=== PATIENT | male | born 1950 | race Caucasian/White ===

== ENCOUNTER 2016-09-20 08:07 | Outpatient (CLI) | payer MEDICARE, OTHER | END 2016-09-20 08:08 | disposition home or self-care (01) | DX: Z13.6 Encounter for screening for cardiovascular disorders (principal); F17.210 Nicotine dependence, cigarettes, uncomplicated ==

== ENCOUNTER 2016-11-27 17:20 | Outpatient (CLI) | payer MEDICARE, OTHER ==
[2016-11-27] MEDS ORDERED: IOPAMIDOL-300 100 ML VIAL IVP ONE (18:41)
[2016-11-27] MEDS ORDERED: IOPAMIDOL-300 50 ML VIAL PO ONE (18:41)
--- NOTE | 2016-11-27 19:06 | CT Preliminary Report ---
Exam: CT Abdomen/Pelvis W/ IMPRESSION: 1. No acute CT abnormality to explain the clinical symptoms. 2. Colonic diverticulosis without acute diverticulitis. [facility] SITE ID: [id number]
--- NOTE | 2016-11-27 19:07 | CT Report ---
EXAM: CT ABDOMEN AND PELVIS EXAM DATE: 11/27/2016 06:40 PM. CLINICAL HISTORY: MASS DECREASE ELEVATION OF PANCREATIC ENZYMES. COMPARISONS: CT abdomen 12/24/2006. TECHNIQUE: Routine helical CT imaging was performed through the abdomen and pelvis. IV contrast: Isov ue 300 100mL. Enteric contrast: Yes. Reconstructions: Coronal and sagittal. In accordance with CT protocol optimization, one or more of the following dose reduction techniques w ere utilized for this exam: automated exposure control, adjustment of mA and/or KV based on patient s ize, or use of iterative reconstructive technique. FINDINGS: Lung Bases: Unremarkable. Liver: There is a liver calcification along the capsule of the liver near the dome. No new liver lesi on or biliary dilatation. Liver size is normal. Gallbladder/Bile Ducts: Unremarkable. Spleen: Normal. Pancreas: Normal. Adrenal Glands: Normal. Kidneys: Normal. No masses or hydronephrosis. Peritoneal Cavity/Bowel: Normal. No free fluid, free air or adenopathy. No masses or acute inflammato ry process. There are scattered diverticula within the colon. The colon is well-opacified with contra st. No abnormal fluid or gas collection. Pelvic Organs: The urinary bladder is empty. Vasculature: Mild atherosclerosis without aneurysm. Bones: There is an old-appearing wedging compression fracture of T12. There is endplate degenerative disease with sclerosis of the inferior L4 vertebral body. Other: Previous right hip arthroplasty noted. IMPRESSION: 1. No acute CT abnormality to explain the clinical symptoms. 2. Colonic diverticulosis without acute diverticulitis. [facility] Referring Provider Line: [phone] SITE ID: [id number]
== END 2016-11-27 17:21 | disposition home or self-care (01) ==
LOC: DI 17:20
PROVIDERS: ATTEND Specialist
DX: R19.00 Intra-abdominal and pelvic swelling, mass and lump, unspecified site (principal); K57.30 Diverticulosis of large intestine without perforation or abscess without bleeding
CPT/HCPCS: 74177; Q9967

== ENCOUNTER 2018-02-28 07:27 | Emergency (ER) | payer MEDICARE, OTHER ==
[2018-02-28 07:38] VITALS: BP 158/87
--- NOTE | 2018-02-28 07:45 | ED Physician Documentation ---
PD HPI LOWER EXT INJURY - Stated complaint Stated Complaint: L KNEE PX - Chief complaint Chief Complaint: General - History obtained from History obtained from: Patient, Family () - History of Present Illness PD HPI LOW EXT INJURY LOCATION: Left, Knee Type of injury: Other (No specific trauma.) Timing - onset: Today Worsened by: Other (Weight bearing.) Associated symptoms: No: Weakness, Numbness, Swelling Similar symptoms before: Has not had sx before - Additional information Additional information: The patient is a 68-year-old male who presents with left knee pain that started when he got out of bed this morning. He denies any traumatic injury. The pain is associated with weightbearing. He denies fever, numbness or weakness. He denies history of pain in his left knee in the past. He does have history of degenerative joint disease, for which he is status post right total hip replacement and right total knee arthroplasty. His orthopedic surgeon has advised him that his left hip also needs to be replaced. He does not currently take any pain medication, having weaned off of MS Contin 2 years ago. Review of Systems Constitutional: denies: Fever Nose: denies: Congestion Respiratory: denies: Dyspnea Skin: denies: Rash Musculoskeletal: reports: Joint pain (Left knee). denies: Back pain, Joint swelling Neurologic: denies: Focal weakness, Numbness, Headache PD PAST MEDICAL HISTORY - Past Medical History Cardiovascular: None, Other Respiratory: Asthma, COPD, Other Endocrine/Autoimmune: None GI: GERD : Incontinence, Frequency HEENT: None Psych: None Musculoskeletal: Osteoporosis, Other Derm: Other - Past Surgical History Past Surgical History: Yes Ortho: Hip replacement, Knee replacement - Present Medications Home Medications: Ambulatory Orders Medication Instructions Recorded Confirmed Albuterol 2.5 inh INH QID PRN 05/11/13 02/28/18 Atorvastatin Calcium [Lipitor] 20 mg PO DAILY 05/11/13 02/28/18 Aspirin [Aspir 81] 81 mg PO DAILY 03/05/14 02/28/18 Donepezil HCl [Aricept] 10 mg PO QPM 03/05/14 02/28/18 Folic Acid 1 mg PO DAILY 03/05/14 02/28/18 Lisinopril 10 mg PO DAILY 03/05/14 02/28/18 Oxybutynin [Ditropan] 5 mg PO BID 03/05/14 02/28/18 - Allergies Allergies/Adverse Reactions: Allergies Allergy/AdvReac Type Severity Reaction Status Date / Time Penicillins Allergy Rash Verified 12/16/15 14:16 sesame seeds Allergy Intermediate Respiratory Uncoded 12/16/15 14:16 nuts AdvReac Severe Emesis Uncoded 12/16/15 14:16 - Social History Does the pt smoke?: No Smoking Status: Former smoker Does the pt drink ETOH?: Yes Does the pt have substance abuse?: No - POLST Patient has POLST: No PD ED PE NORMAL - Vitals Vital signs reviewed: Yes (Hypertensive) - General General: Alert and oriented X 3, Well developed/nourished, Other (Ambulated into the ED, using a cane.) - HEENT HEENT: Atraumatic - Cardiac Cardiac: RRR - Respiratory Respiratory: No respiratory distress, Clear bilaterally - Derm Derm: No rash - Extremities Extremities: No edema, No calf tenderness / cord, Other (Tenderness to palpation at the infrapatellar region of the left knee. There is no warmth, erythema, or swelling noted. He has full flexion and extension of the knee. No ligamentous instability is detected. Distal neurovascular is intact.) - Neuro Neuro: Alert and oriented X 3, No motor deficit, No sensory deficit Results - Vitals Vitals: Oxygen O2 Source [] Room air O2 Source Room air - Rads (name of study) Left knee Radiology: Prelim report reviewed, EMP read contemporaneously, See rad report ( Sclerosis in femur, tibia, proximal fibula. Differential includes metastatic disease, avascular necrosis.) PD MEDICAL DECISION MAKING - ED course Complexity details: reviewed old records, reviewed results, considered differential, d/w patient, d/w family ED course: The patient's presentation is significant for sclerosis in the distal femur, tibia, and proximal fibula, most likely due to avascular necrosis. There is no evidence of acute traumatic injury, and his clinical presentation does not suggest osteomyelitis or septic joint. Treatment in the emergency department included administration of ibuprofen 600 mg orally. He is advised to follow-up with his orthopedic surgeon. I discussed with him and his potentially worrisome signs or symptoms that should prompt reevaluation in the emergency department. - Sepsis Event Vital Signs: Oxygen O2 Source [] Room air O2 Source Room air Departure - Departure Disposition: Home, Self Care Clinical Impression: Avascular necrosis of bone Left knee pain Qualifiers: Chronicity: acute Qualified Code(s): M25.562 - Pain in left knee Condition: Stable Instructions: ED Necrosis Avascular Femoral Head Follow-Up: Nathan Mclean MD [Provider Admit Priv/Credential] - WILY RINALDI [Primary Care Provider] - Comments: You can use ibuprofen, up to 600 mg 3 times daily for its anti-inflammatory effect. Follow up with your orthopedic surgeon. Call to schedule appointment. Return to the emergency department if increasing pain, swelling of the knee, or otherwise worsening symptoms. Discharge Date/Time: 02/28/18 09:21
--- NOTE | 2018-02-28 08:51 | XRAY Report ---
Procedure Date: 02/28/2018 Accession Number: [id number] / [id number] Procedure: XR - Knee 3 View LT CPT Code: FULL RESULT: EXAM: LEFT KNEE RADIOGRAPHY EXAM DATE: 02/28/2018 08:04 AM. CLINICAL HISTORY: Left knee pain; no trauma. COMPARISON: None. TECHNIQUE: 3 views. FINDINGS: Bones: Diffuse areas of irregular sclerosis in the distal femur, proximal tibia and possibly proximal fibula. These extend to the articular surface. There is periosteal new bone formation along the distal femur. Joints: Trace effusion. Spurring of the tibial spines. Soft Tissues: Normal. No soft tissue swelling. IMPRESSION: Sclerosis in femur, Tibia, proximal fibula. Differential includes metastatic disease, avascular necrosis. [facility]
[2018-02-28] MEDS ORDERED: IBUPROFEN 600 MG TABLET PO STA (09:07)
== END 2018-02-28 09:21 | disposition home or self-care (01) ==
LOC: ED 07:27
DX: M87.852 Other osteonecrosis, left femur (principal); M87.86 Other osteonecrosis, tibia and fibula; M87.862 Other osteonecrosis, left tibia; M17.0 Bilateral primary osteoarthritis of knee; Z96.651 Presence of right artificial knee joint; J44.9 Chronic obstructive pulmonary disease, unspecified; K21.9 Gastro-esophageal reflux disease without esophagitis; M81.0 Age-related osteoporosis without current pathological fracture; Z79.82 Long term (current) use of aspirin; Z87.891 Personal history of nicotine dependence
CPT/HCPCS: 73562; 99283; A9270

== ENCOUNTER 2018-10-25 10:20 | Outpatient (CLI) | payer MEDICARE, OTHER | END 2018-10-25 10:21 | disposition critical access hospital (66) | LOC: EMS 10:20 | PROVIDERS: ATTEND Surgery | DX: R41.82 Altered mental status, unspecified (principal) | CPT/HCPCS: A0425; A0429 ==

== ENCOUNTER 2018-10-25 10:47 | Observation (INO) | payer MEDICARE, OTHER ==
[2018-10-25 11:20] LABS: BASOPHILS # (AUTO) 0.1 10^3/uL (0.0-0.1); BASOPHILS % (AUTO) 0.9 %; EOSINOPHILS # (AUTO) 0.1 10^3/uL (0.0-0.7); EOSINOPHILS % (AUTO) 1.1 %; HGB - HEMOGLOBIN 15.8 g/dL (14.0-18.0); LYMPHOCYTES # (AUTO) 1.3 10^3/uL (1.5-3.5); LYMPHOCYTES % (AUTO) 19.3 %; MEAN CORPUSCULAR HEMOGLOBIN 33.2 pg (27.0-31.0); MEAN CORPUSCULAR HGB CONC 34.1 g/dL (32.0-36.0); MEAN CORPUSCULAR VOLUME 97.2 fL (80.0-94.0); MEAN PLATELET VOLUME 7.8 fL (7.4-11.4); MONOCYTES # (AUTO) 0.4 10^3/uL (0.0-1.0); MONOCYTES % (AUTO) 5.6 %; NEUTROPHILS # (AUTO) 4.9 10^3/uL (1.5-6.6); NEUTROPHILS % (AUTO) 73.1 %; PLT - PLATELET COUNT 209 10^3/uL (130-450); RED BLOOD COUNT 4.76 10^6/uL (4.70-6.10); RED CELL DISTRIBUTION WIDTH 14.5 % (12.0-15.0); WHITE BLOOD COUNT 6.8 x10^3/uL (4.8-10.8)
--- NOTE | 2018-10-25 11:23 | ED Physician Documentation ---
PD HPI ALTERED MENTAL STATUS - Stated complaint Stated Complaint: CONFUSION - Chief complaint Chief Complaint: Neuro - History obtained from History obtained from: Patient - History of Present Illness Timing - onset: How many hours ago (09/17), Today Timing - duration: Hours (The patient does have some dementia so short-term memory is slightly impaired. His states he got up at about 7 this morning while she was still in bed and he seemed to be doing okay walking around though she did not really see him. She came out around 730 and he she noted he had trouble getting up out of the chair and when he did was very off balance and fell twice. They called the ambulance who helped him back in to bed. However getting up a few hours later he was still off balance. He denied vertigo per se. His noticed a facial droop. They called the EMS and brought him in again for evaluation. He has had similar episodes a few weeks ago but only lasted a few minutes and then resolved. There was a prior episode a week or so before that.) Timing - details: Abrupt onset, Still present Quality / character: Confused, Other (left facial droop and ataxic gait/falling. He usually is able to walk okay around the house, according to his .) Associated symptoms: No: Fever, Headache, Dyspnea, Cough, NVD, Urinary sx, Seizure activity Contributing factors: No: Anticoagulated, Recent med change, Recent illness Basline status: Ambulatory, Cane. No: Confused (but does have some short term memory problems c/w dementia.) Similar symptoms before: No diagnosis ( says 2 prior episodes in past few weeks lasting just few minutes each time. No evaluation of those.) Recently seen: Not recently seen Review of Systems Constitutional: denies: Fever Nose: denies: Rhinorrhea / runny nose, Congestion Throat: denies: Sore throat Respiratory: denies: Cough GI: denies: Abdominal Pain, Nausea, Vomiting, Diarrhea : denies: Dysuria Skin: denies: Rash, Lesions Neurologic: reports: Focal weakness (left facial droop), Confused. denies: Headache, Head injury Immunocompromised: denies: Immunocompromised PD PAST MEDICAL HISTORY - Past Medical History Past Medical History: Yes Cardiovascular: None, Other Respiratory: Asthma, COPD, Other Neuro: Dementia Endocrine/Autoimmune: None GI: GERD : Incontinence, Frequency HEENT: None Psych: None Musculoskeletal: Osteoporosis, Other Derm: Other - Past Surgical History Past Surgical History: Yes Ortho: Hip replacement, Knee replacement - Present Medications Home Medications: Ambulatory Orders Medication Instructions Recorded Confirmed Albuterol 2.5 inh INH QID PRN 05/11/13 02/28/18 Atorvastatin Calcium [Lipitor] 20 mg PO DAILY 05/11/13 02/28/18 Aspirin [Aspir 81] 81 mg PO DAILY 03/05/14 02/28/18 Donepezil HCl [Aricept] 10 mg PO QPM 03/05/14 02/28/18 Folic Acid 1 mg PO DAILY 03/05/14 02/28/18 Lisinopril 10 mg PO DAILY 03/05/14 02/28/18 Oxybutynin [Ditropan] 5 mg PO BID 03/05/14 02/28/18 - Allergies Allergies/Adverse Reactions: Allergies Allergy/AdvReac Type Severity Reaction Status Date / Time cashew nut Allergy Respiratory Verified 10/25/18 10:58 Penicillins Allergy Rash Verified 10/25/18 10:58 sesame seed Allergy Respiratory Verified 10/25/18 10:58 walnut Allergy Respiratory Verified 10/25/18 10:58 - Social History Does the pt smoke?: No Smoking Status: Never smoker Does the pt drink ETOH?: Yes ETOH Use: Liquor Does the pt have substance abuse?: No - Immunizations Immunizations are current?: Yes - POLST Patient has POLST: No PD ED PE NORMAL - Vitals Vital signs reviewed: Yes - General General: Alert and oriented X 3, No acute distress, Well developed/nourished - HEENT HEENT: Atraumatic, Ears normal, Moist mucous membranes, Pharynx benign - Neck Neck: Supple, no meningeal sign, No adenopathy, No bruit - Cardiac Cardiac: RRR, No murmur - Respiratory Respiratory: Clear bilaterally - Abdomen Abdomen: Normal bowel sounds, Soft - Male Male : Deferred - Rectal Rectal: Deferred - Back Back: No CVA TTP - Derm Derm: Normal color, Warm and dry - Extremities Extremities: No tenderness to palpate, Normal ROM s pain - Neuro Neuro: Alert and oriented X 3, No motor deficit, Normal speech, Other (tried standing him bedside and he was unable to walk steadily, almost falling. ). No: pickle maker 2-12 intact (left moderate facial droop) Results - Vitals Vitals: Vital Signs - 24 hr 10/25/18 10/25/18 10/25/18 10:51 11:10 12:46 Heart Rate 73 65 58 L Respiratory 18 16 16 Rate Blood Pressure 138/67 H 111/67 136/85 H O2 Saturation 94 94 96 10/25/18 10/25/18 14:00 14:30 Heart Rate 57 L Respiratory 13 Rate Blood Pressure 128/79 130/80 O2 Saturation 97 Oxygen O2 Source [Without Activity] Room air O2 Source Room air - Labs Labs: Laboratory Tests 10/25/18 10/25/18 10/25/18 11:12 11:12 11:12 WBC 6.8 RBC 4.76 Hgb 15.8 Hct 46.3 MCV 97.2 H MCH 33.2 H MCHC 34.1 RDW 14.5 Plt Count 209 MPV 7.8 Neut # (Auto) 4.9 Lymph # (Auto) 1.3 L [place] # (Auto) 0.4 Eos # (Auto) 0.1 Baso # (Auto) 0.1 Absolute Nucleated RBC 0.00 Nucleated RBC % 0.1 ESR Sodium 140 Potassium 3.6 Chloride 107 Carbon Dioxide 25 Anion Gap 8.0 BUN 12 Creatinine 1.2 Estimated GFR (MDRD) 60 L Glucose 151 H Calcium 8.7 Magnesium 2.3 Total Bilirubin 0.6 AST 23 ALT 15 Alkaline Phosphatase 49 Total Protein 7.2 Albumin 4.0 Globulin 3.2 Albumin/Globulin Ratio 1.3 Lipase 113 H TSH Urine Color Urine Clarity Urine pH Ur Specific [place] Urine Protein Urine Glucose (UA) Urine Ketones Urine Occult Blood Urine Nitrite Urine Bilirubin Urine Urobilinogen Ur Leukocyte Esterase Urine RBC Urine WBC Ur Squamous Epith Cells Urine Bacteria Urine Culture Comments Ethyl Alcohol 10/25/18 10/25/18 10/25/18 11:12 11:12 11:52 WBC RBC Hgb Hct MCV MCH MCHC RDW Plt Count MPV Neut # (Auto) Lymph # (Auto) [place] # (Auto) Eos # (Auto) Baso # (Auto) Absolute Nucleated RBC Nucleated RBC % ESR Sodium Potassium Chloride Carbon Dioxide Anion Gap BUN Creatinine Estimated GFR (MDRD) Glucose Calcium Magnesium Total Bilirubin AST ALT Alkaline Phosphatase Total Protein Albumin Globulin Albumin/Globulin Ratio Lipase TSH 1.18 Urine Color LT. YELLOW Urine Clarity CLEAR Urine pH 5.5 Ur Specific [place] 1.010 Urine Protein NEGATIVE Urine Glucose (UA) NEGATIVE Urine Ketones NEGATIVE Urine Occult Blood NEGATIVE Urine Nitrite NEGATIVE Urine Bilirubin NEGATIVE Urine Urobilinogen 0.2 (NORMAL) Ur Leukocyte Esterase NEGATIVE Urine RBC 0-5 Urine WBC 0-3 Ur Squamous Epith Cells NONE SEEN Urine Bacteria Rare Urine Culture Comments NOT INDICATED Ethyl Alcohol 292.6 10/25/18 12:05 WBC RBC Hgb Hct MCV MCH MCHC RDW Plt Count MPV Neut # (Auto) Lymph # (Auto) [place] # (Auto) Eos # (Auto) Baso # (Auto) Absolute Nucleated RBC Nucleated RBC % ESR 1 Sodium Potassium Chloride Carbon Dioxide Anion Gap BUN Creatinine Estimated GFR (MDRD) Glucose Calcium Magnesium Total Bilirubin AST ALT Alkaline Phosphatase Total Protein Albumin Globulin Albumin/Globulin Ratio Lipase TSH Urine Color Urine Clarity Urine pH Ur Specific [place] Urine Protein Urine Glucose (UA) Urine Ketones Urine Occult Blood Urine Nitrite Urine Bilirubin Urine Urobilinogen Ur Leukocyte Esterase Urine RBC Urine WBC Ur Squamous Epith Cells Urine Bacteria Urine Culture Comments Ethyl Alcohol - Rads (name of study) head CT Radiology: Prelim report reviewed, Discussed with rads (no acute process) head/neck angio Radiology: Prelim report reviewed (no acute flow limitations nor significant stenoses. ) PD MEDICAL DECISION MAKING - ED course Complexity details: considered differential (Given the facial droop and ataxia, would be concerned for neurologic process such as TIA or stroke. This would likely be non-hemispheric given the lack of weakness of the arm and leg but would be small vessel or area more likely. We did do a CT and CTA which did not show any acute abnormality. His facial droop has improved in the time here in the ER. I still in bedside again any seems slightly wide-based and his stance for balance but was able to take several steps without problem. I think the issue would be TIA versus small CVA and further evaluation would be needed. He takes aspirin every other day at this point. We will give him another 1 here now.), d/w patient, d/w family () Departure - Departure Disposition: ED Place in Observation Clinical Impression: Ataxia, Facial droop, TIA (transient ischemic attack) Condition: Stable Record reviewed to determine appropriate education?: Yes
[2018-10-25 11:31] LABS: ALBUMIN/GLOBULIN RATIO 1.3 (1.0-2.2); BILIRUBIN,TOTAL 0.6 mg/dL (0.2-1.0); CALCIUM 8.7 mg/dL (8.5-10.3); CREATININE 1.2 mg/dL (0.6-1.2); TOTAL PROTEIN 7.2 g/dL (6.7-8.2)
[2018-10-25] MEDS ORDERED: SODIUM CHLORIDE 0.9% 1,000 ML IV ONE (11:49)
[2018-10-25 12:03] LABS: BILIRUBIN,URINE NEGATIVE (NEGATIVE); GLUCOSE, URINE (UA) NEGATIVE (NEGATIVE); KETONES,URINE (UA) NEGATIVE (NEGATIVE); LEUKOCYTE ESTERASE, URINE NEGATIVE (NEGATIVE); NITRITE,URINE NEGATIVE (NEGATIVE); OCCULT BLOOD,URINE NEGATIVE (NEGATIVE); PH,URINE 5.5 PH (5.0-7.5); PROTEIN,URINE NEGATIVE (NEGATIVE); UROBILINOGEN,URINE 0.2 (NORMAL) E.U./dL (NORMAL)
[2018-10-25 12:06] LABS: CLARITY,URINE CLEAR (CLEAR)
[2018-10-25] MEDS ORDERED: IOVERSOL 320 100 ML VIAL IVP ONE ×3 (12:06→12:49)
[2018-10-25 12:14] LABS: RBC,URINE 0-5 /HPF (0-5); SQUAMOUS EPITHELIAL CELL,UR NONE SEEN (<= Few)
[2018-10-25 12:15] LABS: BACTERIA,URINE Rare /HPF (None Seen)
--- NOTE | 2018-10-25 12:48 | CT Report ---
Reason: ataxia and left facial droop Procedure Date: 10/25/2018 Accession Number: [id number] / [id number] Procedure: CT - Head W/O Stroke Protocol CPT Code: FULL RESULT: EXAM: CT HEAD EXAM DATE: 10/25/2018 12:30 PM. CLINICAL HISTORY: Ataxia. Left facial droop. History of dementia. COMPARISON: MRI 06/25/2013. TECHNIQUE: Multiaxial CT images were obtained from the foramen magnum to the vertex. Reformats: Sagittal and coronal. IV contrast: None. In accordance with CT protocol optimization, one or more of the following dose reduction techniques were utilized for this exam: automated exposure control, adjustment of mA and/or KV based on patient size, or use of iterative reconstructive technique. FINDINGS: Parenchyma: No intraparenchymal hemorrhage. No evidence of mass, midline shift, or CT findings of acute infarction. Gonsalez-white differentiation is distinct. Subtle decreased attenuation in periventricular right frontal white matter is seen corresponding to site of increased T2/flair signal seen on MRI. Pattern consistent with chronic small vessel ischemic change. No associated positive mass-effect. Extraaxial Spaces: Sulcal prominence consistent with brain parenchymal volume loss in both cerebral hemispheres. Pattern similar to prior exam. Nonspecific pattern. No subdural or epidural collections identified. Ventricles: Mild ventriculomegaly not disproportionate to the degree of volume loss seen on current exam. No hydrocephalus. Sinuses and Orbits: Imaged paranasal sinuses, orbits, and mastoids show no significant abnormality. Bones: No evidence of fracture or calvarial defect. Other: None. IMPRESSION: 1. No intracranial hemorrhage. No CT findings suspicious for acute/subacute stroke. Possibility of acute/subacute stroke not excluded with noncontrast CT. If indicated clinically, further assessment with MRI could also be considered. 2. Cortical atrophy and mild probable chronic small vessel ischemic change and deep white matter similar to prior studies. 3. No acute abnormality seen. Report telephoned to Dr. Hinojosa 10/25/2015 at 12:40 PM [facility]
--- NOTE | 2018-10-25 13:48 | CT Report ---
Reason: L sided facial droop, ataxia Procedure Date: 10/25/2018 Accession Number: [id number] / [id number] Procedure: CT - Neck Angio CPT Code: FULL RESULT: EXAM: CT ANGIOGRAM HEAD AND NECK. CT SCAN HEAD WITH CONTRAST. EXAM DATE:10/25/2018 12:30 PM. CLINICAL HISTORY:Ataxia. Left facial droop. COMPARISON:CT scan of the head without contrast same time 10/25/2018. TECHNIQUE: Routine axial helical CTA imaging was performed from the aortic arch through the [place] of [place]. Routine axial CT imaging of the head was performed following contrast administration. Reconstructions: Routine multiplanar 3D MIP reconstructions. IV contrast: OPTI 320 80mL. NASCET Criteria are used for stenosis measurements. In accordance with CT protocol optimization, one or more of the following dose reduction techniques were utilized for this exam: automated exposure control, adjustment of mA and/or KV based on patient size, or use of iterative reconstructive technique. FINDINGS: CT SCAN HEAD POSTCONTRAST: (See report of noncontrast CT scan of the head performed same time.) No abnormal intracranial enhancement. CT ANGIOGRAM EXTRACRANIAL CIRCULATION: The visualized arch is unremarkable. Minimal scattered atherosclerotic calcifications are present. Normal three-vessel branching is noted. The great vessels are patent. Right Carotid: The CCA is patent. Intimal thickening and calcification is seen in the distal CCA. Mild, 40%, stenosis is present. Moderate atherosclerotic intimal thickening and calcification is seen at the CCA bifurcation and proximal ICA. Mild, 20%, stenosis is seen in the post bulbar ICA. Cervical ICA is patent. No dissection. Mild tortuosity is seen in the distal cervical ICA. The ECA is patent. Left Carotid: The CCA is patent. Intimal thickening and calcification is seen in the distal CCA. Mild, 45%, stenosis is seen. Moderate atherosclerotic calcification is seen at the CCA bifurcation and proximal ICA. The ICA is patent without significant stenosis. No dissection. Mild tortuosity is seen in the distal cervical ICA. The ECA is patent. Vertebrals: The left vertebral artery is dominant. Right Vertebral Artery: (V1 segment is obscured by dense venous contrast.) Punctate calcification is seen at the origin without significant stenosis. The V2 and V3 segments are patent. No dissection. Left Vertebral Artery: Dominant. Vascular loop is seen in the V1 segment. Patent. No significant atherosclerotic change or stenosis. No dissection. CT ANGIOGRAM INTRACRANIAL CIRCULATION: Normal. No stenoses or aneurysms of the visualized vessels. No large vessel occlusion is seen. Tortuosity of the cavernous ICA is seen bilaterally. Small caliber A-comm is present. Small caliber P-comm are noted bilaterally. The left vertebral artery is dominant primarily forming the basilar artery. The right PICA is dominant arising from the distal V4 segment. Distal V4 segment after the PICA origin is hypoplastic but patent. The basilar artery and bifurcation is patent. The left AICA is dominant. Bilateral superior cerebellar arteries are unremarkable. The dural venous sinuses are patent. Other: No consolidation is seen in the lung apices. Patchy interstitial prominence is seen in the partially visualized upper lobes bilaterally. The muscle and fascial planes of the neck are unremarkable. No lytic or blastic bony lesions are seen. Kyphosis of the cervical spine is seen centered at C3-C4. Mild spondylosis is noted throughout the cervical spine. IMPRESSION: CT SCAN HEAD POSTCONTRAST: (See report of noncontrast CT scan of the head performed same time.) 1. No abnormal intracranial enhancement. CT ANGIOGRAM NECK: 1. Right Carotid Circulation: Atherosclerotic changes seen in the distal CCA and bifurcation. Mild, 40%, stenosis is seen in the distal CCA. Mild, 20%, stenosis is seen in the post bulbar proximal ICA. 2. Left Carotid Circulation: Atherosclerotic change is seen in the distal CCA and bifurcation. Moderate, 45%, stenosis is seen in the distal CCA. The ICA is patent. 3. Right Vertebral Artery: Small in caliber. The V1 segment is obscured by streak artifact from adjacent dense venous contrast. Otherwise patent. 4. Left Vertebral Artery: Dominant. Patent. CT ANGIOGRAM HEAD: 1. Normal CTA of the head. No aneurysm. No significant stenosis. No large vessel occlusion. 2. The left vertebral artery is dominant. [facility]
[2018-10-25] MEDS ORDERED: ONDANSETRON ODT 4 MG TABLET TL PRN (14:45)
[2018-10-25] MEDS ORDERED: ACETAMINOPHEN 325 MG TABLET PO PRN (14:45)
[2018-10-25] MEDS ORDERED: SODIUM CHLORIDE FLUSH 0.9% 10 ML SYRINGE IVP PRN (14:45)
[2018-10-25] MEDS ORDERED: HYDROcod/ACETAM 5/325 MG TABLET PO PRN (14:45)
[2018-10-25] MEDS ORDERED: TEMAZEPAM 15 MG CAPSULE PO PRN (14:45)
[2018-10-25] MEDS ORDERED: ALBUTEROL NEB 2.5 MG/3 ML INH PRN (14:50)
[2018-10-25] MEDS ORDERED: LABETALOL 20 MG/4 ML SYRINGE IVP PRN (14:51)
--- NOTE | 2018-10-25 15:34 | HISTORY & PHYSICAL EXAMINATION ---
Chief Complaint - Chief Complaint Chief Complaint: Confusion with left facial droop and associated balance issues Stroke/TIA/Neuro Template - History Obtained From Records Reviewed: RN notes reviewed History obtained from: Patient, Family Exam limitations: No limitations - History of Present Illness Symptom Quality: reports: Facial droop, Ataxia Context- Symptoms started w/: reports: Awake Timing: reports: Gradual onset Associated symptoms: reports: Feeling faint / dizzy HPI Comment/Other: This is a 68 y/o with hx Vascular dementia, HLP, Myelodyspastic syndrome s/p stem cell transplant 19 yrs ago, COPD with PF, Bronchiectasis, Asthma, 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 Patient states he had a mechanical fall 2 days ago anfd hit his head with some post head injury confusi on. Since then hes been fine but has been feeling off balance, denies seizure like activity, excessive etoh drinking, fevers, chest pain, palpitations, new medications, loss of bowel or bladder control, LOC, or AGUIRRE's. Initial w/u was unremarkable with a Head CT and CTA head and neck which shows mild vascular disease with some 40% stenosis present. Lipase was 113, normal lytes and creat 1.2, cbc normal. VSS. Would admit for obs/tele. PMH/PSH - Past Medical History Cardiovascular: positive: None, Other Respiratory: positive: Asthma, COPD, Other Neuro: positive: Dementia Endocrine/Autoimmune: positive: None GI: positive: GERD : positive: Incontinence, Frequency HEENT: positive: None Psych: positive: None Musculoskeletal: positive: Osteoporosis, Other Derm: positive: Other MRSA Hx?: No - Past Surgical History Ortho: positive: Hip replacement, Knee replacement Social & Family Hx - Social History Does the pt smoke?: No Smoking Status: Never smoker Does the pt drink ETOH?: Yes ETOH Use: Liquor Does the pt have substance abuse?: No - POLST Patient has POLST: No Meds/Allgy - Home Medications Home Medications: Ambulatory Orders Medication Instructions Recorded Confirmed Albuterol 2.5 inh INH QID PRN 05/11/13 02/28/18 Atorvastatin Calcium [Lipitor] 20 mg PO DAILY 05/11/13 02/28/18 Aspirin [Aspir 81] 81 mg PO DAILY 03/05/14 02/28/18 Donepezil HCl [Aricept] 10 mg PO QPM 03/05/14 02/28/18 Folic Acid 1 mg PO DAILY 03/05/14 02/28/18 Lisinopril 10 mg PO DAILY 03/05/14 02/28/18 Oxybutynin [Ditropan] 5 mg PO BID 03/05/14 02/28/18 - Allergies Allergies/Adverse Reactions: Allergies Allergy/AdvReac Type Severity Reaction Status Date / Time cashew nut Allergy Respiratory Verified 10/25/18 10:58 Penicillins Allergy Rash Verified 10/25/18 10:58 sesame seed Allergy Respiratory Verified 10/25/18 10:58 walnut Allergy Respiratory Verified 10/25/18 10:58 Review of Systems - Constitutional Constitutional: denies: Fatigue, Fever, Chills, Weakness, Night sweats - Eyes Eyes: denies: Field loss, Vision loss, Dipolpia - Ears, Nose & Throat Ears, Nose & Throat: denies: Tinnitus, Vertigo - Cardiovascular Cariovascular: denies: Irregular heart rate, Palpitations, Chest pain, Edema, Lightheadedness, Syncope, Exertional dyspnea - Respiratory Respiratory: denies: Cough, Sputum production, Wheezing - Gastrointestinal Gastrointestinal: denies: Abdominal pain, Abdominal distention, Constipation, Nausea - Genitourinary Genitourinary: denies: Dysuria, Frequency, Urgency - Musculoskeletal Musculoskeletal: denies: Back pain, Muscle aches, Muscle weakness - Integumentary Integumentary: denies: Rash, Pruritis, Lesions, Pigment changes - Neurological Neurological: reports: Dizziness, Memory problems, Abnormal gait, Incoordination, Slurred speech. denies: General weakness, Focal weakness, Headache, Seizures - Psychiatric Psychiatric: denies: Depression, Anxiety, Hallucinations - Endocrine Endocrine: denies: Polyuria, Polydypsia, Polyphagia, Intolerance to cold - Hematologic/Lymphatic Hematologic/Lymphatic: denies: Anemia, Bruising, Petechiae - All Other Systems All Other Systems: reports: Reviewed and negative Prior Level of Functionality: Fully active/independent with home activities and ADL's Exam - Vital Signs Reviewed Vital Signs: Yes Vital Signs: Vital Signs x48h Temp Pulse Resp BP Pulse Ox 10/25/18 14:53 36.7 C 62 12 130/80 97 10/25/18 14:30 57 L 13 130/80 97 10/25/18 14:00 128/79 10/25/18 12:46 58 L 16 136/85 H 96 10/25/18 11:10 65 16 111/67 94 10/25/18 10:51 73 18 138/67 H 94 - Physical Exam General Appearance: positive: No acute distress, Alert Eyes Bilateral: positive: Normal inspection, PERRL, EOMI ENT: positive: ENT inspection nml, Pharynx nml, No signs of dehydration Neck: positive: Nml inspection, Thyroid nml, No JVD, Trachea midline. negative: Thyromegaly, Carotid bruit Respiratory: positive: Chest non-tender, No respiratory distress, Breath sounds nml. negative: Wheezes, Rales Cardiovascular: positive: Regular rate & rhythm, No murmur, No gallop. negative: Irregularly irregular, JVD present, Systolic murmur, Friction rub Peripheral Pulses: positive: 2+ Abdomen: positive: Non-tender, No organomegaly, Nml bowel sounds, No distention. negative: Tenderness Back: positive: Nml inspection Skin: positive: Color nml, No rash, Warm. negative: Pallor Extremities: positive: Non-tender, Full ROM, Nml appearance, No pedal edema. negative: Pedal edema Neurologic/Psychiatric: positive: Oriented x3, CN's nml (2-12), Facial droop, Slurred/abnml speech Babinski Reflex: Right: Absent, Left: Absent Results - Lab Results Lab results reviewed: Yes Fish Bones: 10/25/18 11:12 10/25/18 11:12 Other Lab Results: Lab Results x24hrs 10/25/18 10/25/18 10/25/18 Range/Units 12:05 11:52 11:12 WBC (4.8-10.8) x10^3/uL RBC (4.70-6.10) 10^6/uL Hgb (14.0-18.0) g/dL Hct (42.0-52.0) % MCV (80.0-94.0) fL MCH (27.0-31.0) pg MCHC (32.0-36.0) g/dL RDW (12.0-15.0) % Plt Count (130-450) 10^3/uL MPV (7.4-11.4) fL Neut # (Auto) (1.5-6.6) 10^3/uL Lymph # (Auto) (1.5-3.5) 10^3/uL [place] # (Auto) (0.0-1.0) 10^3/uL Eos # (Auto) (0.0-0.7) 10^3/uL Baso # (Auto) (0.0-0.1) 10^3/uL Absolute Nucleated RBC x10^3/uL Nucleated RBC % /100WBC ESR 1 (0-20) mm/Hr Sodium (135-145) mmol/L Potassium (3.5-5.0) mmol/L Chloride (101-111) mmol/L Carbon Dioxide (21-32) mmol/L Anion Gap (6-13) BUN (6-20) mg/dL Creatinine (0.6-1.2) mg/dL Estimated GFR (MDRD) (>89) Glucose (70-100) mg/dL Calcium (8.5-10.3) mg/dL Magnesium (1.7-2.8) mg/dL Total Bilirubin (0.2-1.0) mg/dL AST (10-42) IU/L ALT (10-60) IU/L Alkaline Phosphatase (42-121) IU/L Total Protein (6.7-8.2) g/dL Albumin (3.2-5.5) g/dL Globulin (2.1-4.2) g/dL Albumin/Globulin Ratio (1.0-2.2) Lipase (22-51) U/L TSH (0.34-5.60) uIU/mL Urine Color LT. YELLOW Urine Clarity CLEAR (CLEAR) Urine pH 5.5 (5.0-7.5) PH Ur Specific [place] 1.010 (1.002-1.030) Urine Protein NEGATIVE (NEGATIVE) mg/dL Urine Glucose (UA) NEGATIVE (NEGATIVE) mg/dL Urine Ketones NEGATIVE (NEGATIVE) mg/dL Urine Occult Blood NEGATIVE (NEGATIVE) Urine Nitrite NEGATIVE (NEGATIVE) Urine Bilirubin NEGATIVE (NEGATIVE) Urine Urobilinogen 0.2 (NORMAL) (NORMAL) E.U./dL Ur Leukocyte Esterase NEGATIVE (NEGATIVE) Urine RBC 0-5 (0-5) /HPF Urine WBC 0-3 (0-3) /HPF Ur Squamous Epith Cells NONE SEEN (<= Few) Urine Bacteria Rare (None Seen) /HPF Urine Culture Comments NOT INDICATED Ethyl Alcohol 292.6 mg/dL 10/25/18 10/25/18 10/25/18 Range/Units 11:12 11:12 11:12 WBC (4.8-10.8) x10^3/uL RBC (4.70-6.10) 10^6/uL Hgb (14.0-18.0) g/dL Hct (42.0-52.0) % MCV (80.0-94.0) fL MCH (27.0-31.0) pg MCHC (32.0-36.0) g/dL RDW (12.0-15.0) % Plt Count (130-450) 10^3/uL MPV (7.4-11.4) fL Neut # (Auto) (1.5-6.6) 10^3/uL Lymph # (Auto) (1.5-3.5) 10^3/uL [place] # (Auto) (0.0-1.0) 10^3/uL Eos # (Auto) (0.0-0.7) 10^3/uL Baso # (Auto) (0.0-0.1) 10^3/uL Absolute Nucleated RBC x10^3/uL Nucleated RBC % /100WBC ESR (0-20) mm/Hr Sodium 140 (135-145) mmol/L Potassium 3.6 (3.5-5.0) mmol/L Chloride 107 (101-111) mmol/L Carbon Dioxide 25 (21-32) mmol/L Anion Gap 8.0 (6-13) BUN 12 (6-20) mg/dL Creatinine 1.2 (0.6-1.2) mg/dL Estimated GFR (MDRD) 60 L (>89) Glucose 151 H (70-100) mg/dL Calcium 8.7 (8.5-10.3) mg/dL Magnesium 2.3 (1.7-2.8) mg/dL Total Bilirubin 0.6 (0.2-1.0) mg/dL AST 23 (10-42) IU/L ALT 15 (10-60) IU/L Alkaline Phosphatase 49 (42-121) IU/L Total Protein 7.2 (6.7-8.2) g/dL Albumin 4.0 (3.2-5.5) g/dL Globulin 3.2 (2.1-4.2) g/dL Albumin/Globulin Ratio 1.3 (1.0-2.2) Lipase 113 H (22-51) U/L TSH 1.18 (0.34-5.60) uIU/mL Urine Color Urine Clarity (CLEAR) Urine pH (5.0-7.5) PH Ur Specific [place] (1.002-1.030) Urine Protein (NEGATIVE) mg/dL Urine Glucose (UA) (NEGATIVE) mg/dL Urine Ketones (NEGATIVE) mg/dL Urine Occult Blood (NEGATIVE) Urine Nitrite (NEGATIVE) Urine Bilirubin (NEGATIVE) Urine Urobilinogen (NORMAL) E.U./dL Ur Leukocyte Esterase (NEGATIVE) Urine RBC (0-5) /HPF Urine WBC (0-3) /HPF Ur Squamous Epith Cells (<= Few) Urine Bacteria (None Seen) /HPF Urine Culture Comments Ethyl Alcohol mg/dL 10/25/18 Range/Units 11:12 WBC 6.8 (4.8-10.8) x10^3/uL RBC 4.76 (4.70-6.10) 10^6/uL Hgb 15.8 (14.0-18.0) g/dL Hct 46.3 (42.0-52.0) % MCV 97.2 H (80.0-94.0) fL MCH 33.2 H (27.0-31.0) pg MCHC 34.1 (32.0-36.0) g/dL RDW 14.5 (12.0-15.0) % Plt Count 209 (130-450) 10^3/uL MPV 7.8 (7.4-11.4) fL Neut # (Auto) 4.9 (1.5-6.6) 10^3/uL Lymph # (Auto) 1.3 L (1.5-3.5) 10^3/uL [place] # (Auto) 0.4 (0.0-1.0) 10^3/uL Eos # (Auto) 0.1 (0.0-0.7) 10^3/uL Baso # (Auto) 0.1 (0.0-0.1) 10^3/uL Absolute Nucleated RBC 0.00 x10^3/uL Nucleated RBC % 0.1 /100WBC ESR (0-20) mm/Hr Sodium (135-145) mmol/L Potassium (3.5-5.0) mmol/L Chloride (101-111) mmol/L Carbon Dioxide (21-32) mmol/L Anion Gap (6-13) BUN (6-20) mg/dL Creatinine (0.6-1.2) mg/dL Estimated GFR (MDRD) (>89) Glucose (70-100) mg/dL Calcium (8.5-10.3) mg/dL Magnesium (1.7-2.8) mg/dL Total Bilirubin (0.2-1.0) mg/dL AST (10-42) IU/L ALT (10-60) IU/L Alkaline Phosphatase (42-121) IU/L Total Protein (6.7-8.2) g/dL Albumin (3.2-5.5) g/dL Globulin (2.1-4.2) g/dL Albumin/Globulin Ratio (1.0-2.2) Lipase (22-51) U/L TSH (0.34-5.60) uIU/mL Urine Color Urine Clarity (CLEAR) Urine pH (5.0-7.5) PH Ur Specific [place] (1.002-1.030) Urine Protein (NEGATIVE) mg/dL Urine Glucose (UA) (NEGATIVE) mg/dL Urine Ketones (NEGATIVE) mg/dL Urine Occult Blood (NEGATIVE) Urine Nitrite (NEGATIVE) Urine Bilirubin (NEGATIVE) Urine Urobilinogen (NORMAL) E.U./dL Ur Leukocyte Esterase (NEGATIVE) Urine RBC (0-5) /HPF Urine WBC (0-3) /HPF Ur Squamous Epith Cells (<= Few) Urine Bacteria (None Seen) /HPF Urine Culture Comments Ethyl Alcohol mg/dL - Diagnostic Imaging Results Diagnostic Imaging Results: positive: Final report reviewed (CT head and CTA reviewed) - EKG Results EKG Interpreted Independently: Yes EKG Comparison: positive: No prior EKG EKG Findings: Old posterior infarct, SR at 62 bpm Impression/Plan - Problem List Problem List: 1. TIA 2. Dysarthria 3. HLP 4. Vascular dementia 5. Ataxia with gait abnormalities 6. CKD-2 7. Advance care planning and counseling Plan: Admit to tele/obs, neurochecks q shift,daily ASA, statin to resume, lipid in am, optimize med mgmt to avoid BP drops and liberal tx of SBP>220 and DBP>120 in the setting of ischemic TIA likely cause seen on CTA with some mild vascular disease and non-critical stenosis. Resume home meds for vascular dementia. PT/OT to follow. Avoid nephrotoxic agents, IVF's, correct lytes. DVT/GI ppx. Patient expressed wishes to get back home as soon as possible and we discussed his current medical conditions for which goals of care, trajectory of illness and anticipated recovery were discussed at length. Code Status: Full code. Core Measures - Anticipated LOS I expect patient to be DC'd or transferred within 96 hours.: Yes - Issues Hospital Issues and Management Plan: Will need to ambulate and have PT assess for HHS. - DVT/VTE - Prophylaxis VTE/DVT Device ordered at admit?: No Not Ordered - Medical Reason: Not indicated VTE/DVT Prophylaxis med ordered at admit?: Yes - Stroke - Rehab Assessment Rehab services assessment to be ordered?: Yes - AMI - Statin at Admit Aspirin Prescribed on Admit: Yes
[2018-10-25] MEDS: LACTATED RINGERS 1,000 ML IV SCH (16:53)
[2018-10-25] MEDS: SODIUM CHLORIDE FLUSH 0.9% 10 ML SYRINGE IVP SCH (16:53)
[2018-10-25] MEDS: FAMOTIDINE 20 MG TABLET PO SCH (20:28)
[2018-10-25] MEDS: OXYBUTYNIN 5MG TABLET PO SCH (20:29)
[2018-10-25] MEDS ORDERED: ATORVASTATIN 10 MG TABLET PO SCH (21:00)
[2018-10-25] MEDS ORDERED: DONEPEZIL 5 MG TABLET PO SCH (21:00)
[2018-10-26] MEDS: LACTATED RINGERS 1,000 ML IV SCH (01:50)
[2018-10-26] MEDS: SODIUM CHLORIDE FLUSH 0.9% 10 ML SYRINGE IVP SCH ×2 (03:09→08:26)
--- NOTE | 2018-10-26 07:02 | DISCHARGE SUMMARY ---
Discharge Summary Admit Date: 10/25/18 Discharge Date: 10/26/18 Discharging Provider: Dr. Motta Primary Care Provider: Tyler Kaufman Code Status: Attempt Resuscitation Condition at Discharge: Good Discharge Disposition: 01 Home, Self Care - DIAGNOSES Admission Diagnoses: 1. TIA 2. Dysarthria 3. HLP 4. Vascular dementia 5. Ataxia with gait abnormalities 6. CKD-2 7. Advance care planning and counseling Discharge Diagnoses with Status of Each Condition: 1. TIA 2. Dysarthria-resolved 3. HLP-on statin 4. Vascular dementia 5. Ataxia with gait abnormalities-resolving 6. CKD-2 7. Advance care planning and counseling 8. 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 Patient states he had a mechanical fall 2 days ago anfd hit his head with some post head injury confusion. Since then hes been fine but has been feeling off balance, denies seizure like activity, excessive etoh drinking, fevers, chest pain, palpitations, new medications, loss of bowel or bladder control, LOC, or AGUIRRE's. Initial w/u was unremarkable with a Head CT and CTA head and neck which shows mild vascular disease with some 40% stenosis present. Lipase was 113, normal lytes and creat 1.2, cbc normal. VSS. Would admit for obs/tele. - HOSPITAL COURSE Hospital Course: Patient was admitted for TIA. He was placed in tele/obs, neurochecks q shift, daily ASA given with no further neurological deficits other than a subtle facial droop which was resolving upon discharge, statin was resumed pending a lipid panel, medical magmt was optimized, HTN was managed to avoid BP drops and liberal tx of SBP>220 and DBP>120 in the setting of ischemic TIA likely cause seen on CTA with some mild vascular disease and non-critical stenosis. Patient had home meds resumed for vascular dementia. PT/OT was ordered for disposition to outpatient setting. Avoid nephrotoxic agents, IVF's given. DVT/GI ppx was initiated. Patient expressed wishes to get back home as soon as possible and we discussed his current medical conditions for which goals of care, trajectory of illness and anticipated recovery were discussed at length. On discharge VSS with no new neurological deficits was able to ambulate on his own with no gait di sturbances or any drifting or lack of coordination noted. Patient had ETOH level of 292.6 on admission and was instruct to not drink alcohol when on BP meds or other drugs that may drop his BP. Also this would worsen his confusion in terms of vascular dementia and while be on Aricept. - ALLERGIES Allergies/Adverse Reactions: Allergies Allergy/AdvReac Type Severity Reaction Status Date / Time cashew nut Allergy Respiratory Verified 10/25/18 10:58 Penicillins Allergy Rash Verified 10/25/18 10:58 sesame seed Allergy Respiratory Verified 10/25/18 10:58 walnut Allergy Respiratory Verified 10/25/18 10:58 - MEDICATIONS Home Medications: Ambulatory Orders Medication Instructions Recorded Confirmed Atorvastatin Calcium [Lipitor] 20 mg PO DAILY 05/11/13 10/26/18 Donepezil HCl [Aricept] 10 mg PO QPM 03/05/14 10/26/18 Lisinopril 10 mg PO DAILY 03/05/14 10/26/18 Oxybutynin [Ditropan] 5 mg PO BID 03/05/14 10/26/18 Albuterol 2.5 mg INH QID PRN #30 neb 10/26/18 Aspirin [Aspirin EC] 325 mg PO DAILY #30 tablet. 10/26/18 Folic Acid 1 mg PO DAILY #30 tablet 10/26/18 Thiamine HCl [Vitamin B-1] 100 mg PO DAILY #30 tablet 10/26/18 - PHYSICAL EXAM AT DISCHARGE General Appearance: positive: No acute distress Eyes Bilateral: positive: Normal inspection, PERRL, EOMI, Conjunctivae nml ENT: positive: ENT inspection nml, Pharynx nml, No signs of dehydration Neck: positive: Nml inspection, Thyroid nml, No JVD, Trachea midline. negative: Thyromegaly, Carotid bruit Respiratory: positive: Chest non-tender, No respiratory distress, Breath sounds nml Cardiovascular: positive: Regular rate & rhythm, No murmur, No gallop Peripheral Pulses: positive: 2+ Abdomen: positive: Non-tender, No organomegaly, Nml bowel sounds, No distention. negative: Tenderness Skin: positive: Color nml, No rash, Warm, Dry Extremities: positive: Non-tender, Full ROM, Nml appearance Neurologic/Psychiatric: positive: Oriented x3, CN's nml (2-12), Motor nml, Sensation nml, Mood/affect nml - LABS Result Diagrams: 10/25/18 11:12 10/25/18 11:12 - DIAGNOSTIC IMAGING Diagnostic Imaging Results: Final report reviewed - FOLLOW UP Follow Up: PCP in 1-2 weeks - TIME SPENT Time Spent in Discharge (Minutes): 35
--- NOTE | 2018-10-26 07:10 | Discharge Plan ---
Discharge Plan Disposition: Home, Self Care Condition: Good Prescriptions: Albuterol 2.5 mg INH QID PRN #30 neb PRN Reason: Asthma Aspirin [Aspirin EC] 325 mg PO DAILY #30 tablet. Folic Acid 1 mg PO DAILY #30 tablet Thiamine HCl [Vitamin B-1] 100 mg PO DAILY #30 tablet Diet: Low Sodium Activity Restrictions: Activity as Tolerated Shower Restrictions: No Driving Restrictions: No Weight Bearing: Full Weight Instruction Topics: Stroke Ischemic, Dysarthria, TIA, Withdrawal Alcohol What Expect, Alcoholism Additional Instructions or Follow Up instructions: ETOH cessation education and counseling Will have pt follow up with PCP for further care or return if pt worsens. Pt comfortable with plan. No Smoking: If you smoke, Please STOP! Call for help. Follow-up with: WILY RINALDI [Primary Care Provider] - 2 Weeks
[2018-10-26 07:35] LABS: CHOL/HDL RATIO 2.5 (<5.0); CHOLESTEROL 160 mg/dL; HDL CHOLESTEROL 65 mg/dL; LDL CHOLESTEROL,CALCULATED 78 mg/dL; LDL/HDL RATIO 1.2 (<3.6); VLDL CHOLESTEROL 17 mg/dL
[2018-10-26 08:08] VITALS: BP 158/81
[2018-10-26] MEDS: FAMOTIDINE 20 MG TABLET PO SCH (08:25)
[2018-10-26] MEDS: OXYBUTYNIN 5MG TABLET PO SCH (08:25)
[2018-10-26] MEDS ORDERED: LISINOPRIL 5 MG TABLET PO SCH (09:00)
[2018-10-26] MEDS ORDERED: FOLIC ACID 1 MG TABLET PO SCH (09:00)
[2018-10-26] MEDS ORDERED: ASPIRIN EC 81 MG TABLET PO SCH (09:00)
[2018-10-26] MEDS ORDERED: POLYETHYLENE GLYCOL 3350 17 GM PACKET PO SCH (09:00)
[2018-10-26] MEDS ORDERED: ENOXAPARIN 40 MG/0.4 ML SYRINGE SUBQ SCH (09:00)
== END 2018-10-26 10:10 | disposition home or self-care (01) ==
LOC: EDUNIT# → ED 10:47 → OBS 14:45
PROVIDERS: ADMIT Family Medicine; ATTEND Family Medicine
DX: G45.9 Transient cerebral ischemic attack, unspecified (principal); E78.5 Hyperlipidemia, unspecified; F01.50 Vascular dementia, unspecified severity, without behavioral disturbance, psychotic disturbance, mood disturbance, and anxiety; I12.9 Hypertensive chronic kidney disease with stage 1 through stage 4 chronic kidney disease, or unspecified chronic kidney disease; N18.2 Chronic kidney disease, stage 2 (mild); F10.10 Alcohol abuse, uncomplicated; Y90.8 Blood alcohol level of 240 mg/100 ml or more; J44.9 Chronic obstructive pulmonary disease, unspecified; J84.10 Pulmonary fibrosis, unspecified; J47.9 Bronchiectasis, uncomplicated; N32.81 Overactive bladder; M19.90 Unspecified osteoarthritis, unspecified site; M87.9 Osteonecrosis, unspecified; M81.0 Age-related osteoporosis without current pathological fracture; D46.9 Myelodysplastic syndrome, unspecified; K21.9 Gastro-esophageal reflux disease without esophagitis; R32 Unspecified urinary incontinence; R35.0 Frequency of micturition; Z94.84 Stem cells transplant status; Z91.81 History of falling; Z79.51 Long term (current) use of inhaled steroids; Z79.82 Long term (current) use of aspirin; Z96.659 Presence of unspecified artificial knee joint; Z96.649 Presence of unspecified artificial hip joint
CPT/HCPCS: 36415; 70450; 70496; 70498; 80053; 80061; 81001; 83690; 83735; 84443; 85025; 85651; 93005; 96360; 96361; 99284; 99285; A9270; G0378; J7120; Q9967; 80320; 83721; 87086

== ENCOUNTER 2018-11-01 09:17 | Outpatient (CLI) | payer MEDICARE, OTHER ==
[2018-11-01] MEDS ORDERED: GADOBUTROL 10 MMOL/10 ML VIAL ONE (10:56)
[2018-11-01] MEDS ORDERED: GADOBUTROL 10 MMOL/10 ML VIAL IVP ONE (11:23)
--- NOTE | 2018-11-01 14:46 | MRI Report ---
Reason: CVA Procedure Date: 11/01/2018 Accession Number: [id number] / [id number] Procedure: MRI - Angio Brain W/O (MRA) CPT Code: FULL RESULT: EXAMS: MRI BRAIN WITHOUT CONTRAST. MRA BRAIN WITHOUT CONTRAST. EXAM DATE: 11/01/2018 11:40 AM. CLINICAL HISTORY: 68-year-old with recent episode of facial droop, dysphagia, and worsening memory loss. Evaluate for intracranial pathology. COMPARISON: CTA head and neck 10/25/2018; MR brain 06/25/2013. TECHNIQUE: MRI: Multiplanar, multisequence T1-weighted and fluid-sensitive MRI sequences of the brain were performed. Sequences optimized for routine evaluation. Other: None. Post-processing: None. IV Contrast: None. MRA: Multiplanar, multisequence T1-weighted and fluid-sensitive MRA sequences of the brain were performed. Other: None. Post-processing: Multiplanar 3D MIP reconstructions. IV Contrast: None. FINDINGS: MRI: Brain Volume: Normal for age. Parenchyma/Dura: No acute parenchymal hemorrhage, mass, or midline shift. There are mild bilateral areas of white matter hypoattenuation seen that appear progressed from MR brain 06/25/2013. There are no areas of restricted diffusion seen to suggest acute infarct. There are no abnormal areas of hemosiderin deposition. No white matter lesions identified. Ventricles/Cisterns: No hydrocephalus. No abnormal extra-axial fluid collection or hemorrhage. Orbits: Changes of right lens replacement. Sella [place]: The pituitary gland, cavernous sinuses, suprasellar cistern and optic chiasm are unremarkable. IAC: Symmetric and unremarkable. Vasculature: Normal signal flow void is seen in the major arterial structures at the skull base. Sinuses: Minimal mucosal thickening of the paranasal sinuses. Small volume bilateral mastoid effusions, greater on the left. Bones: No focal pathologic appearing marrow signal changes. Other: None. MRA: RIGHT Internal Carotid (ICA): No aneurysm, stenosis or anomaly. Middle Cerebral (MCA): No aneurysm, stenosis or anomaly. Anterior Cerebral (RACHAEL): No aneurysm, stenosis or anomaly. Posterior Cerebral (TESTING SHAKING SHIPPING): No aneurysm, stenosis or anomaly. Posterior Communicating (P-COM): Not definitively seen. No aneurysm. Vertebral: The proximal of the intradural V4 and distal intradural V4 segment of the right vertebral artery are not well visualized on the 3D [id number] sequence. On postcontrast T1 FSPGR sequence there is contrast opacification of the proximal and distal V4 segments of the intradural right vertebral artery. Finding on [id number] sequence may be artifactual. LEFT Internal Carotid (ICA): No aneurysm, stenosis or anomaly. Middle Cerebral (MCA): No aneurysm, stenosis or anomaly. Anterior Cerebral (RACHAEL): No aneurysm, stenosis or anomaly. Posterior Cerebral (TESTING SHAKING SHIPPING): No aneurysm, stenosis or anomaly. Posterior Communicating (P-COM): Not definitively seen. Vertebral: No aneurysm, stenosis or anomaly in the visualized upper vertebral artery. MIDLINE Anterior Communicating (A-COM): No aneurysm, stenosis or anomaly. Basilar artery: No aneurysm, stenosis or anomaly. Other: None. IMPRESSION: MRI HEAD: 1.No definite acute intracranial pathology seen; specifically, no acute infarct, acute intracranial hemorrhage, mass, hydrocephalus, or midline shift. No abnormal postcontrast enhancement. 2. Mild white matter changes that appear progressed from MR brain 06/25/2013 and may represent sequela of chronic small vessel ischemic disease. MRA HEAD: 1.The proximal of the intradural V4 and distal intradural V4 segment of the right vertebral artery are not well visualized on the 3D [id number] sequence. On postcontrast T1 FSPGR sequence there is contrast opacification of the proximal and distal V4 segments of the intradural right vertebral artery. Finding on [id number] sequence may be artifactual. 2. No definite large vessel occlusion. 3. No intracranial aneurysm. RADIA
--- NOTE | 2018-11-01 14:46 | MRI Report ---
Reason: CVA Procedure Date: 11/01/2018 Accession Number: [id number] / [id number] Procedure: MRI - Brain W/WO CPT Code: FULL RESULT: EXAMS: MRI BRAIN WITHOUT CONTRAST. MRA BRAIN WITHOUT CONTRAST. EXAM DATE: 11/01/2018 11:40 AM. CLINICAL HISTORY: 68-year-old with recent episode of facial droop, dysphagia, and worsening memory loss. Evaluate for intracranial pathology. COMPARISON: CTA head and neck 10/25/2018; MR brain 06/25/2013. TECHNIQUE: MRI: Multiplanar, multisequence T1-weighted and fluid-sensitive MRI sequences of the brain were performed. Sequences optimized for routine evaluation. Other: None. Post-processing: None. IV Contrast: None. MRA: Multiplanar, multisequence T1-weighted and fluid-sensitive MRA sequences of the brain were performed. Other: None. Post-processing: Multiplanar 3D MIP reconstructions. IV Contrast: None. FINDINGS: MRI: Brain Volume: Normal for age. Parenchyma/Dura: No acute parenchymal hemorrhage, mass, or midline shift. There are mild bilateral areas of white matter hypoattenuation seen that appear progressed from MR brain 06/25/2013. There are no areas of restricted diffusion seen to suggest acute infarct. There are no abnormal areas of hemosiderin deposition. No white matter lesions identified. Ventricles/Cisterns: No hydrocephalus. No abnormal extra-axial fluid collection or hemorrhage. Orbits: Changes of right lens replacement. Sella Turcica: The pituitary gland, cavernous sinuses, suprasellar cistern and optic chiasm are unremarkable. IAC: Symmetric and unremarkable. Vasculature: Normal signal flow void is seen in the major arterial structures at the skull base. Sinuses: Minimal mucosal thickening of the paranasal sinuses. Small volume bilateral mastoid effusions, greater on the left. Bones: No focal pathologic appearing marrow signal changes. Other: None. MRA: RIGHT Internal Carotid (ICA): No aneurysm, stenosis or anomaly. Middle Cerebral (MCA): No aneurysm, stenosis or anomaly. Anterior Cerebral (RACHAEL): No aneurysm, stenosis or anomaly. Posterior Cerebral (TUBE STATION ATTENDANT): No aneurysm, stenosis or anomaly. Posterior Communicating (P-COM): Not definitively seen. No aneurysm. Vertebral: The proximal of the intradural V4 and distal intradural V4 segment of the right vertebral artery are not well visualized on the 3D gmvv-nq-fsqcip sequence. On postcontrast T1 FSPGR sequence there is contrast opacification of the proximal and distal V4 segments of the intradural right vertebral artery. Finding on kpbg-yg-jzszqy sequence may be artifactual. LEFT Internal Carotid (ICA): No aneurysm, stenosis or anomaly. Middle Cerebral (MCA): No aneurysm, stenosis or anomaly. Anterior Cerebral (RACHAEL): No aneurysm, stenosis or anomaly. Posterior Cerebral (TUBE STATION ATTENDANT): No aneurysm, stenosis or anomaly. Posterior Communicating (P-COM): Not definitively seen. Vertebral: No aneurysm, stenosis or anomaly in the visualized upper vertebral artery. MIDLINE Anterior Communicating (A-COM): No aneurysm, stenosis or anomaly. Basilar artery: No aneurysm, stenosis or anomaly. Other: None. IMPRESSION: MRI HEAD: 1.No definite acute intracranial pathology seen; specifically, no acute infarct, acute intracranial hemorrhage, mass, hydrocephalus, or midline shift. No abnormal postcontrast enhancement. 2. Mild white matter changes that appear progressed from MR brain 06/25/2013 and may represent sequela of chronic small vessel ischemic disease. MRA HEAD: 1.The proximal of the intradural V4 and distal intradural V4 segment of the right vertebral artery are not well visualized on the 3D wfgw-cz-guanrh sequence. On postcontrast T1 FSPGR sequence there is contrast opacification of the proximal and distal V4 segments of the intradural right vertebral artery. Finding on efvu-fx-oesxxy sequence may be artifactual. 2. No definite large vessel occlusion. 3. No intracranial aneurysm. RADIA
== END 2018-11-01 09:18 | disposition home or self-care (01) ==
LOC: DI 09:17
PROVIDERS: ATTEND Specialist
DX: I63.9 Cerebral infarction, unspecified (principal); G44.1 Vascular headache, not elsewhere classified
CPT/HCPCS: 70544; 70553; 93306; A9585

== ENCOUNTER 2019-09-14 08:39 | Outpatient (CLI) | payer MEDICARE, OTHER | END 2019-09-14 08:40 | disposition critical access hospital (66) | LOC: EMS 08:39 | PROVIDERS: ATTEND Surgery | DX: M54.9 Dorsalgia, unspecified (principal); W18.2XXA Fall in (into) shower or empty bathtub, initial encounter; Y92.002 Bathroom of unspecified non-institutional (private) residence as the place of occurrence of the external cause | CPT/HCPCS: A0425; A0429 ==

== ENCOUNTER 2019-09-14 08:56 | Emergency (ER) | payer MEDICARE, OTHER ==
--- NOTE | 2019-09-14 09:15 | ED Physician Documentation ---
PD HPI BACK PAIN - Stated complaint Stated Complaint: FLANK PX - Chief complaint Chief Complaint: Back Pain - History obtained from History obtained from: Family - History of Present Illness Timing - onset: Yesterday Timing - duration: Days (1) Timing - details: Abrupt onset Contributing factors: Trauma Recently seen: Not recently seen - Additional information Additional information: There is a 69-year-old man with dementia presents with by EMS with complaints that he fell 3 times last night. He complains to me of some mid back pain more on the left side than the right side but seems to indicate that this is more chronic. He is really not able to answer any specifics about what happened last night or his past history he just keeps mentioning to ask his and he says that last night he did not know where he was so he the called the ambulance this morning. He denied headache, recent upper respiratory symptoms, shortness of breath, chest pain, dysuria or hematuria. He is had no nausea or vomiting. He did not know what prior surgeries he had. His came in and said that his legs got "like jelly" when he was in the shower last night and he fell. He was able to get out of the tub and to the bed but by that time he had fallen 2 more times. He did have a little urinary incontinence with the last fall. By this morning she was unable to get him out of bed. He did not hit his head. He is not on blood thinning medications. He is not been physically ill. He has had TIAs in the past and in fact had to spend overnight in the hospital back in October. He had similar symptoms at that time. 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 denies: Extremity pain Neurologic: denies: Syncope, Headache, Head injury, LOC PD PAST MEDICAL HISTORY - Past Medical History Past Medical History: Yes Cardiovascular: None, Other Respiratory: Asthma, COPD, Other Neuro: Dementia, TIA Endocrine/Autoimmune: None GI: GERD : Incontinence, Frequency HEENT: None Psych: None Musculoskeletal: Osteoporosis, Other Derm: Other - Past Surgical History Past Surgical History: Yes Ortho: Hip replacement, Knee replacement - Present Medications Home Medications: Ambulatory Orders Medication Instructions Recorded Confirmed Atorvastatin Calcium [Lipitor] 20 mg PO DAILY 05/11/13 10/26/18 Donepezil HCl [Aricept] 10 mg PO QPM 03/05/14 10/26/18 Lisinopril 10 mg PO DAILY 03/05/14 10/26/18 Oxybutynin [Ditropan] 5 mg PO BID 03/05/14 10/26/18 Albuterol 2.5 mg INH QID PRN #30 neb 10/26/18 Aspirin [Aspirin EC] 325 mg PO DAILY #30 tablet. 10/26/18 Folic Acid 1 mg PO DAILY #30 tablet 10/26/18 Thiamine HCl [Vitamin B-1] 100 mg PO DAILY #30 tablet 10/26/18 Oxycodone HCl 5 mg PO TID PRN #10 tablet 09/14/19 - Allergies Allergies/Adverse Reactions: Allergies Allergy/AdvReac Type Severity Reaction Status Date / Time cashew nut Allergy Respiratory Verified 09/14/19 09:05 Penicillins Allergy Rash Verified 09/14/19 09:05 sesame seed Allergy Respiratory Verified 09/14/19 09:05 walnut Allergy Respiratory Verified 09/14/19 09:05 - Social History Does the pt smoke?: No Smoking Status: Never smoker Does the pt drink ETOH?: Yes Does the pt have substance abuse?: No - Immunizations Immunizations are current?: Yes - POLST Patient has POLST: No PD ED PE NORMAL - Vitals Vital signs reviewed: Yes - General General: No acute distress, Well developed/nourished, Other (Oriented to his name but not the location or date. He is very pleasant, smiling.) - HEENT HEENT: Atraumatic, PERRL, EOMI, Moist mucous membranes - Neck Neck: No adenopathy - Cardiac Cardiac: RRR, No murmur, Strong equal pulses - Respiratory Respiratory: No respiratory distress, Clear bilaterally - Abdomen Abdomen: Normal bowel sounds, Soft, Non tender, Non distended, No organomegaly - Back Back: Other (Small bruise about a centimeter noted on the left back along the left costal margin. No subcu emphysema or crepitance. He is not particularly tender there. No palpable step-off through the lumbar spine complains of "just a touch" of pain) - Derm Derm: Normal color, Warm and dry - Extremities Extremities: No deformity, No tenderness to palpate, Normal ROM s pain, No edema, Other (Well-healed scar over the right knee. 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 No: Wide QRS Ischemia: Normal ST segments Other comments: Other comments (Diffusely flat T waves) Compare to prior EKG: Unchanged from prior EKG - Labs Labs: Laboratory Tests 09/14/19 09/14/19 09/14/19 09:35 09:35 09:35 WBC 11.9 H RBC 4.53 L Hgb 14.7 Hct 43.0 MCV 94.9 H MCH 32.5 H MCHC 34.2 RDW 14.2 Plt Count 179 MPV 9.3 Neut # (Auto) 10.1 H Lymph # (Auto) 0.8 L [place] # (Auto) 0.8 Eos # (Auto) 0.0 Baso # (Auto) 0.0 Absolute Nucleated RBC 0.00 Nucleated RBC % 0.0 Sodium 141 Potassium 4.7 Chloride 109 Carbon Dioxide 22 Anion Gap 10.0 BUN 15 Creatinine 1.2 Estimated GFR (MDRD) 60 L Glucose 111 H Calcium 8.8 Magnesium 2.0 Total Bilirubin 0.6 AST 22 ALT 18 Alkaline Phosphatase 40 L Troponin I High Sens 3.1 Total Protein 6.6 L Albumin 4.2 Globulin 2.4 Albumin/Globulin Ratio 1.8 Lipase 140 H Urine Color Urine Clarity Urine pH Ur Specific [place] Urine Protein Urine Glucose (UA) Urine Ketones Urine Occult Blood Urine Nitrite Urine Bilirubin Urine Urobilinogen Ur Leukocyte Esterase Ur Microscopic Review Urine Culture Comments 09/14/19 10:59 WBC RBC Hgb Hct MCV MCH MCHC RDW Plt Count MPV Neut # (Auto) Lymph # (Auto) [place] # (Auto) Eos # (Auto) Baso # (Auto) Absolute Nucleated RBC Nucleated RBC % Sodium Potassium Chloride Carbon Dioxide Anion Gap BUN Creatinine Estimated GFR (MDRD) Glucose Calcium Magnesium Total Bilirubin AST ALT Alkaline Phosphatase Troponin I High Sens Total Protein Albumin Globulin Albumin/Globulin Ratio Lipase Urine Color YELLOW Urine Clarity CLEAR Urine pH 6.0 Ur Specific [place] 1.025 Urine Protein NEGATIVE Urine Glucose (UA) NEGATIVE Urine Ketones NEGATIVE Urine Occult Blood NEGATIVE Urine Nitrite NEGATIVE Urine Bilirubin NEGATIVE Urine Urobilinogen 0.2 (NORMAL) Ur Leukocyte Esterase NEGATIVE Ur Microscopic Review NOT INDICATED Urine Culture Comments NOT INDICATED - Rads (name of study) lumbar spine Radiology: See rad report (T12 and L1 compression fractures of uncertain age) ct head Radiology: See rad report (neg acute) PD MEDICAL DECISION MAKING - ED course Complexity details: reviewed old records, reviewed results, re-evaluated patient, d/w patient, d/w family ED course: Labs are essentially normal. His lipase is elevated but he is not having any abdominal pain or vomiting.Seems to be about baseline but the was concerned about the falls and His mental status his new complaints of back pain. She does not remember him ever having significant back pain in the past. We discussed the imaging showing T12 and L1 compression fractures. He is never had any imaging of the lumbar spine done here previously to know if these are new or old. The fact that he has new pain is suspicious that these may be acute fractures. There is no evidence of infection anywhere. His head CT did not show signs of normal pressure hydrocephalus or acute stroke. He was able to stand at the bedside and to ambulate. They have a walker at home and at this point the feels reassured and comfortable taking him home since we do not really have any specific treatment that would be done here in the hospital for the compression fractures. They were given a prescription for oxycodone to help manage the pain at home and should he continue following or other problems arise then he should be reevaluated. At this time he has good strength in his lower extremities. MRI scanning of the lower spine may be need to be considered if his symptoms persist with weakness and falling. Departure - Departure Disposition: 01 Home, Self Care Clinical Impression: Compression fracture of lumbar vertebra Qualifiers: Encounter type: initial encounter Lumbar vertebra fracture level: L1 Qualified Code(s): S32.010A - Wedge compression fracture of first lumbar vertebra, initial encounter for closed fracture Compression of thoracic vertebra Qualifiers: Encounter type: initial encounter Thoracic vertebra fracture level: T12 Qualified Code(s): S22.080A - Wedge compression fracture of T11-T12 vertebra, initial encounter for closed fracture Condition: Good Instructions: ED Fx Comp Vertebral Follow-Up: WILY RINALDI [Primary Care Provider] - Prescriptions: Oxycodone HCl 5 mg PO TID PRN #10 tablet PRN Reason: pain Comments: Take the oxycodone if needed for back pain. Use the walker if you have any be up and ambulating anywhere to help steady herself and keep from falling. Follow-up with your primary care provider if the pain continues. Return if problems arise. Discharge Date/Time: 09/14/19 12:42
[2019-09-14 09:40] LABS: BASOPHILS % (AUTO) 0.3 %; HGB - HEMOGLOBIN 14.7 g/dL (14.0-18.0); LYMPHOCYTES # (AUTO) 0.8 10^3/uL (1.5-3.5); LYMPHOCYTES % (AUTO) 7.1 %; MEAN CORPUSCULAR HEMOGLOBIN 32.5 pg (27.0-31.0); MEAN CORPUSCULAR HGB CONC 34.2 g/dL (32.0-36.0); MEAN CORPUSCULAR VOLUME 94.9 fL (80.0-94.0); MEAN PLATELET VOLUME 9.3 fL (7.4-11.4); MONOCYTES # (AUTO) 0.8 10^3/uL (0.0-1.0); MONOCYTES % (AUTO) 6.7 %; NEUTROPHILS # (AUTO) 10.1 10^3/uL (1.5-6.6); PLT - PLATELET COUNT 179 10^3/uL (130-450); RED BLOOD COUNT 4.53 10^6/uL (4.70-6.10); RED CELL DISTRIBUTION WIDTH 14.2 % (12.0-15.0); WHITE BLOOD COUNT 11.9 x10^3/uL (4.8-10.8)
[2019-09-14 09:54] LABS: ALBUMIN 4.2 g/dL (3.2-5.5); ALBUMIN/GLOBULIN RATIO 1.8 (1.0-2.2); BILIRUBIN,TOTAL 0.6 mg/dL (0.2-1.0); CALCIUM 8.8 mg/dL (8.5-10.3); CREATININE 1.2 mg/dL (0.6-1.2); TOTAL PROTEIN 6.6 g/dL (6.7-8.2)
--- NOTE | 2019-09-14 10:07 | CT Report ---
Reason: fall Procedure Date: 09/14/2019 Accession Number: [id number] / [id number] Procedure: CT - HEAD WO CPT Code: Final Report FULL RESULT: EXAM: HEAD CT WITHOUT IV CONTRAST EXAM DATE: 09/14/2019 09:50 AM CLINICAL HISTORY: Fall, rule out NPH. COMPARISON: HEAD ANGIO 10/25/2018 12:24 PM. TECHNIQUE: Multiaxial CT images were obtained from the foramen magnum to the vertex. Reformats: Sagittal and coronal. IV contrast: None. In accordance with CT protocol optimization, one or more of the following dose reduction techniques were utilized for this exam: automated exposure control, adjustment of mA and/or KV based on patient size, or use of iterative reconstructive technique. FINDINGS: Parenchyma: No acute intraparenchymal hemorrhage. No evidence of mass, midline shift. Gonsalez-white differentiation is distinct. Extraaxial Spaces: Basal cisterns are preserved. No subdural or epidural collections identified. Ventricles: Prominent ventricles as well as prominence of sulcal spaces, not significantly changed compared to October 2018. Sinuses and Orbits: Imaged paranasal sinuses, orbits, and mastoids show no significant abnormality. Bones: No evidence of fracture or calvarial defect. Other: None. IMPRESSION: No acute intracranial abnormality. Stable ventricular configuration. RADIA
--- NOTE | 2019-09-14 10:10 | XRAY Report ---
Reason: back pain, s/p fall Procedure Date: 09/14/2019 Accession Number: [id number] / [id number] Procedure: XR - Lumbar Spine 2 View CPT Code: Final Report FULL RESULT: EXAM: LUMBOSACRAL SPINE RADIOGRAPHY EXAM DATE: 09/14/2019 09:56 AM. CLINICAL HISTORY: Back pain, status post fall. COMPARISONS: None. TECHNIQUE: 3 views. FINDINGS: Alignment: There is a minimal dextroconvex lumbar scoliosis centered about L3-L4, approximately 5 degrees. No listhesis. Bones: Five [id number] lumbar vertebral bodies are present. The bones are qualitatively osteopenic; this limits evaluation for underlying fractures or masses. There are wedge compression fractures of L1 and T12, up to 50% of loss of height anteriorly. Disks: There is marginal disk osteophyte complex formation which is most pronounced at L3-L4 and L4-L5. Facets: There is facet arthropathy of the lower lumbar spine, approximately moderate. Sacroiliac Joints: Unremarkable. Soft Tissues: Aortic calcifications are noted. IMPRESSION: Degenerative changes as well as compression fractures which are age indeterminate at T12 and L1. RADIA
[2019-09-14 11:08] LABS: BILIRUBIN,URINE NEGATIVE (NEGATIVE); CLARITY,URINE CLEAR (CLEAR); GLUCOSE, URINE (UA) NEGATIVE (NEGATIVE); KETONES,URINE (UA) NEGATIVE (NEGATIVE); LEUKOCYTE ESTERASE, URINE NEGATIVE (NEGATIVE); NITRITE,URINE NEGATIVE (NEGATIVE); OCCULT BLOOD,URINE NEGATIVE (NEGATIVE); PROTEIN,URINE NEGATIVE (NEGATIVE); UROBILINOGEN,URINE 0.2 (NORMAL) E.U./dL (NORMAL)
[2019-09-14 12:24] VITALS: BP 130/79
[2019-09-14] MEDS ORDERED: oxyCODONE 5 MG TABLET PO STA (12:32)
== END 2019-09-14 12:42 | disposition home or self-care (01) ==
LOC: EDUNIT# → ED 08:56
DX: S32.010A Wedge compression fracture of first lumbar vertebra, initial encounter for closed fracture (principal); S22.080A Wedge compression fracture of T11-T12 vertebra, initial encounter for closed fracture; W18.39XA Other fall on same level, initial encounter; Y93.E1 Activity, personal bathing and showering; Y92.009 Unspecified place in unspecified non-institutional (private) residence as the place of occurrence of the external cause; R53.1 Weakness; Z91.81 History of falling; R74.8 Abnormal levels of other serum enzymes; M25.78 Osteophyte, vertebrae; F03.90 Unspecified dementia, unspecified severity, without behavioral disturbance, psychotic disturbance, mood disturbance, and anxiety; Z96.641 Presence of right artificial hip joint; Z96.651 Presence of right artificial knee joint; Z86.73 Personal history of transient ischemic attack (TIA), and cerebral infarction without residual deficits; Z79.82 Long term (current) use of aspirin
CPT/HCPCS: 36415; 70450; 72100; 80053; 81003; 83690; 83735; 84484; 85025; 93005; 99284; A9270; 81001; 87086

== ENCOUNTER 2021-01-25 11:39 | Outpatient (CLI) | payer MEDICARE, OTHER ==
--- NOTE | 2021-01-25 12:32 | XRAY Report ---
PROCEDURE: Chest 2 View X-Ray INDICATIONS: Cough TECHNIQUE: 2 view(s) of the chest. COMPARISON: Chest CT studies 10/05/2013, 08/19/2013, 04/29/2013 FINDINGS: Surgical changes and devices: None. Lungs and pleura: Coarsened interstitial markings throughout both lungs, most notable in the right la teral mid lung and right lung base. Lungs are clear. Mediastinum: Mediastinal contours are normal. Heart size is normal. Bones and chest wall: No suspicious bony abnormalities. Soft tissues appear unremarkable. IMPRESSION: Nonspecific coarsened interstitial markings in both lungs. Multiple remote prior CT chest examinations demonstrate findings of pulmonary fibrosis and bronchiectasis. A repeat high resolution CT of the chest could be considered to assess for progression, if clinically warranted. Reviewed by: Devante Webb MD on 01/25/2021 12:30 PM PDT Approved by: Devante Webb MD on 01/25/2021 12:30 PM PDT Station ID: [id number]
== END 2021-01-25 11:40 | disposition home or self-care (01) ==
LOC: DI 11:39
PROVIDERS: ATTEND Nurse Practitioner Family
DX: R91.8 Other nonspecific abnormal finding of lung field (principal)

== ENCOUNTER 2021-02-17 09:49 | Outpatient (CLI) | payer MEDICARE, OTHER ==
[2021-02-17 10:08] LABS: BASOPHILS % (AUTO) 0.7 %; EOSINOPHILS # (AUTO) 0.2 10^3/uL (0.0-0.7); EOSINOPHILS % (AUTO) 3.8 %; HCT - HEMATOCRIT 48.2 % (42.0-52.0); HGB - HEMOGLOBIN 16.2 g/dL (14.0-18.0); LYMPHOCYTES # (AUTO) 1.6 10^3/uL (1.5-3.5); LYMPHOCYTES % (AUTO) 28.1 %; MEAN CORPUSCULAR HEMOGLOBIN 32.9 pg (27.0-31.0); MEAN CORPUSCULAR HGB CONC 33.6 g/dL (32.0-36.0); MEAN PLATELET VOLUME 9.3 fL (7.4-11.4); MONOCYTES # (AUTO) 0.6 10^3/uL (0.0-1.0); MONOCYTES % (AUTO) 10.5 %; NEUTROPHILS # (AUTO) 3.1 10^3/uL (1.5-6.6); NEUTROPHILS % (AUTO) 56.5 %; PLT - PLATELET COUNT 196 10^3/uL (130-450); RED BLOOD COUNT 4.92 10^6/uL (4.70-6.10); RED CELL DISTRIBUTION WIDTH 13.8 % (12.0-15.0); WHITE BLOOD COUNT 5.5 x10^3/uL (4.8-10.8)
[2021-02-17 10:37] LABS: ALBUMIN 4.3 g/dL (3.2-5.5); ALBUMIN/GLOBULIN RATIO 1.5 (1.0-2.2); BILIRUBIN,TOTAL 0.8 mg/dL (0.2-1.0); CALCIUM 9.2 mg/dL (8.5-10.3); CREATININE 1.2 mg/dL (0.6-1.2); POTASSIUM 4.3 mmol/L (3.5-5.0); TOTAL PROTEIN 7.1 g/dL (6.7-8.2)
== END 2021-02-17 09:50 | disposition home or self-care (01) ==
LOC: LAB 09:49
PROVIDERS: ATTEND Internal Medicine
DX: Z79.899 Other long term (current) drug therapy (principal)
CPT/HCPCS: 36415; 80053; 85025

== ENCOUNTER 2022-02-26 10:08 | Outpatient (CLI) | payer MEDICARE, OTHER ==
--- NOTE | 2022-02-26 10:42 | CT Report ---
PROCEDURE: HEAD WO INDICATIONS: DEMENTIA WITH BEHAVIORAL DISTURBANCE TECHNIQUE: Noncontrast 4.5 mm thick angled axial sections acquired from the foramen magnum to the vertex. For r adiation dose reduction, the following was used: automated exposure control, adjustment of mA and/or kV according to patient size. COMPARISON: MRI 11/01/2018 FINDINGS: There is global cerebral volume loss, moderate and age-commensurate. Although not entirely definitive , the volume loss appears to involve the perisylvian and perirolandic regions to the disproportionate degree. Moderate chronic microvascular ischemic changes manifest as patchy decreased attenuation of the deep and periventricular white matter. No abnormal extra-axial fluid collection or evidence of acute intracranial hemorrhage. No findings of mass effect or midline shift. The ventricular system and basilar cisterns are patent. Gonsalez-white mat ter differentiation is maintained, without CT evidence of an acute large territory infarct. No significant orbital abnormality. Paranasal sinuses and mastoid air cells are clear. No suspicious osseous lesion. IMPRESSION: No acute intracranial finding. Moderate global cerebral volume loss, with subjectively disproportionate involvement in the perisylvi an and perirolandic regions. In the appropriate clinical setting, this pattern of volume loss could i ndicate Alzheimer dementia. Reviewed by: Devante Webb MD on 02/26/2022 10:41 AM PDT Approved by: Devante Webb MD on 02/26/2022 10:41 AM PDT Station ID: [id number]
== END 2022-02-26 10:09 | disposition home or self-care (01) ==
LOC: DI 10:08
PROVIDERS: ATTEND Internal Medicine
DX: F03.91 Unspecified dementia, unspecified severity, with behavioral disturbance (principal)

== ENCOUNTER 2022-03-14 19:20 | Outpatient (CLI) | payer MEDICARE, OTHER | END 2022-03-14 19:21 | disposition EMS.NT | LOC: EMS 19:20 | DX: F03.90 Unspecified dementia, unspecified severity, without behavioral disturbance, psychotic disturbance, mood disturbance, and anxiety (principal) ==

== ENCOUNTER 2022-03-21 16:46 | Outpatient (CLI) | payer MEDICARE, OTHER | END 2022-03-21 16:47 | disposition critical access hospital (66) | LOC: EMS 16:46 | DX: R41.0 Disorientation, unspecified (principal); R29.6 Repeated falls | CPT/HCPCS: A0425; A0427 ==

== ENCOUNTER 2022-03-21 17:05 | Emergency (ER) | payer MEDICARE, OTHER ==
--- NOTE | 2022-03-21 17:17 | ED Physician Documentation ---
PD HPI ABD PAIN - Stated complaint Stated Complaint: AMS - History obtained from History obtained from: EMS - Additional information Additional information: 72-year-old with dementia was brought in today with concern for UTI given that he seems to be a little more confused than normal and had a temp of 99.8. No history is available from the patient due to dementia. Review of Systems Unable to obtain: Dementia PD PAST MEDICAL HISTORY - Past Medical History Cardiovascular: None, Other Respiratory: Asthma, COPD, Other Neuro: Dementia, TIA Endocrine/Autoimmune: None GI: GERD : Incontinence, Frequency HEENT: None Psych: None Musculoskeletal: Osteoporosis, Other Derm: Other - Past Surgical History Past Surgical History: Yes Ortho: Hip replacement, Knee replacement - Present Medications Home Medications: Ambulatory Orders Medication Instructions Recorded Confirmed Atorvastatin Calcium [Lipitor] 20 mg PO DAILY 05/11/13 10/26/18 Donepezil HCl [Aricept] 10 mg PO QPM 03/05/14 10/26/18 Lisinopril 10 mg PO DAILY 03/05/14 10/26/18 Oxybutynin [Ditropan] 5 mg PO BID 03/05/14 10/26/18 Albuterol 2.5 mg INH QID PRN #30 neb 10/26/18 Aspirin [Aspirin EC] 325 mg PO DAILY #30 tablet. 10/26/18 Folic Acid 1 mg PO DAILY #30 tablet 10/26/18 Thiamine HCl [Vitamin B-1] 100 mg PO DAILY #30 tablet 10/26/18 Oxycodone HCl 5 mg PO TID PRN #10 tablet 09/14/19 traZODone [Desyrel] 50 mg PO HS #30 tablet 03/21/22 - Allergies Allergies/Adverse Reactions: Allergies Allergy/AdvReac Type Severity Reaction Status Date / Time cashew nut Allergy Respiratory Verified 03/21/22 17:13 Penicillins Allergy Rash Verified 03/21/22 17:13 sesame seed Allergy Respiratory Verified 03/21/22 17:13 walnut Allergy Respiratory Verified 03/21/22 17:13 - Social History Does the pt smoke?: No Smoking Status: Never smoker Does the pt drink ETOH?: Yes Does the pt have substance abuse?: No - Immunizations Immunizations are current?: Yes - POLST Patient has POLST: No PD ED PE NORMAL - Vitals Vital signs reviewed: Yes - General General: Other (He is alert and oriented to person only. He is cooperative in no distress.) - Cardiac Cardiac: RRR, No murmur - Respiratory Respiratory: No respiratory distress, Clear bilaterally - Abdomen Abdomen: Other (Mild suprapubic tenderness) - Back Back: No CVA TTP, No spinal TTP - Derm Derm: Normal color, Warm and dry - Extremities Extremities: No edema, No calf tenderness / cord - Neuro Eye Opening: Spontaneous Motor: Obeys Commands Verbal: Confused GCS Score: 14 Results - Vitals Vitals: Vital Signs - 24 hr 03/21/22 03/21/22 03/21/22 17:13 17:46 19:05 Temperature 36.9 C Heart Rate 63 64 76 Respiratory 18 17 16 Rate Blood Pressure 150/87 H 130/88 H 156/83 H O2 Saturation 96 99 99 Oxygen O2 Source [Without Activity] Room air O2 Source Room air - Labs Labs: Laboratory Tests 03/21/22 03/21/22 03/21/22 17:28 17:28 17:28 WBC 7.7 RBC 4.55 L Hgb 14.5 Hct 43.4 MCV 95.4 H MCH 31.9 H MCHC 33.4 RDW 14.0 Plt Count 213 MPV 9.5 Neut # (Auto) 5.1 Lymph # (Auto) 1.4 L [place] # (Auto) 0.8 Eos # (Auto) 0.3 Baso # (Auto) 0.0 Absolute Nucleated RBC 0.00 Nucleated RBC % 0.0 Sodium 138 Potassium 3.9 Chloride 106 Carbon Dioxide 24 Anion Gap 8.0 BUN 13 Creatinine 1.1 Estimated GFR (MDRD) 65 L Glucose 121 H Lactic Acid 0.9 Calcium 8.5 Urine Color Urine Clarity Urine pH Ur Specific [place] Urine Protein Urine Glucose (UA) Urine Ketones Urine Occult Blood Urine Nitrite Urine Bilirubin Urine Urobilinogen Ur Leukocyte Esterase Urine RBC Urine WBC Ur Squamous Epith Cells Urine Bacteria Urine Mucus Ur Microscopic Review Urine Culture Comments 03/21/22 18:45 WBC RBC Hgb Hct MCV MCH MCHC RDW Plt Count MPV Neut # (Auto) Lymph # (Auto) [place] # (Auto) Eos # (Auto) Baso # (Auto) Absolute Nucleated RBC Nucleated RBC % Sodium Potassium Chloride Carbon Dioxide Anion Gap BUN Creatinine Estimated GFR (MDRD) Glucose Lactic Acid Calcium Urine Color YELLOW Urine Clarity HAZY Urine pH 5.5 Ur Specific [place] 1.025 Urine Protein NEGATIVE Urine Glucose (UA) NEGATIVE Urine Ketones 40 H Urine Occult Blood LARGE H Urine Nitrite NEGATIVE Urine Bilirubin NEGATIVE Urine Urobilinogen 0.2 (NORMAL) Ur Leukocyte Esterase NEGATIVE Urine RBC TNTC H Urine WBC 0-3 Ur Squamous Epith Cells RARE Squamous Urine Bacteria Rare Urine Mucus Moderate Strands Ur Microscopic Review INDICATED Urine Culture Comments NOT INDICATED PD MEDICAL DECISION MAKING - ED course ED course: The was not here on initial evaluation but I was able to speak with her a couple hours after the patient's arrival. He has dementia with behavioral disturbances and has been falling a lot lately. She is considering memory care. She did not have a concern per se about a UTI, simply the firefighters mentioned that is a possibility on the way in. 72-year-old gentleman with severe dementia is being cared for by his at home and has worsening symptoms. Work-up here was notable for hematuria but otherwise normal labs. Given the unclear cause of the hematuria this was followed by a CT of his head and belly, without acute pertinent positive findings except for a dot of gas in the bladder but he had been catheterized at that point, a nephrolith and an L1 compression fracture and atrophy etc. in the brain. He does not have a good sleep-wake cycle and this is probably making his dementia symptoms and his 's job harder and he was administered trazodone an d given a prescription for same here. She is planning on enrolling him in memory care. He was able to ambulate here at his baseline. Departure - Departure Disposition: 01 Home, Self Care Clinical Impression: Frequent falls Dementia Qualifiers: Dementia type: unspecified type Dementia behavioral disturbance: with behavioral disturbance Qualified Code(s): F03.91 - Unspecified dementia with behavioral disturbance Condition: Good Record reviewed to determine appropriate education?: Yes Instructions: ED Dementia Caregiver Support Prescriptions: traZODone [Desyrel] 50 mg PO HS #30 tablet Comments: I am glad that you have an senior trial attorney that is looking at options for you and I think getting him into memory care is very appropriate. To help with his sleep- wake cycle I am prescribing trazodone, it can be given at bedtime. Return for new or worsening symptoms. Follow-up with your primary, next available appointment.
[2022-03-21 17:35] LABS: BASOPHILS % (AUTO) 0.5 %; EOSINOPHILS # (AUTO) 0.3 10^3/uL (0.0-0.7); EOSINOPHILS % (AUTO) 3.9 %; HCT - HEMATOCRIT 43.4 % (42.0-52.0); HGB - HEMOGLOBIN 14.5 g/dL (14.0-18.0); LYMPHOCYTES # (AUTO) 1.4 10^3/uL (1.5-3.5); LYMPHOCYTES % (AUTO) 18.3 %; MEAN CORPUSCULAR HEMOGLOBIN 31.9 pg (27.0-31.0); MEAN CORPUSCULAR HGB CONC 33.4 g/dL (32.0-36.0); MEAN CORPUSCULAR VOLUME 95.4 fL (80.0-94.0); MEAN PLATELET VOLUME 9.5 fL (7.4-11.4); MONOCYTES # (AUTO) 0.8 10^3/uL (0.0-1.0); MONOCYTES % (AUTO) 10.7 %; NEUTROPHILS # (AUTO) 5.1 10^3/uL (1.5-6.6); NEUTROPHILS % (AUTO) 66.3 %; PLT - PLATELET COUNT 213 10^3/uL (130-450); RED BLOOD COUNT 4.55 10^6/uL (4.70-6.10); WHITE BLOOD COUNT 7.7 x10^3/uL (4.8-10.8)
[2022-03-21 17:44] LABS: CALCIUM 8.5 mg/dL (8.5-10.3); CREATININE 1.1 mg/dL (0.6-1.2); POTASSIUM 3.9 mmol/L (3.5-5.0)
[2022-03-21 19:02] LABS: BILIRUBIN,URINE NEGATIVE (NEGATIVE); GLUCOSE, URINE (UA) NEGATIVE (NEGATIVE); KETONES,URINE (UA) 40 mg/dL (NEGATIVE); LEUKOCYTE ESTERASE, URINE NEGATIVE (NEGATIVE); NITRITE,URINE NEGATIVE (NEGATIVE); OCCULT BLOOD,URINE LARGE (NEGATIVE); PH,URINE 5.5 PH (5.0-7.5); PROTEIN,URINE NEGATIVE (NEGATIVE); UROBILINOGEN,URINE 0.2 (NORMAL) E.U./dL (NORMAL)
[2022-03-21 19:05] LABS: CLARITY,URINE HAZY (CLEAR)
[2022-03-21 19:17] LABS: BACTERIA,URINE Rare /HPF (None Seen); MUCUS,URINE Moderate Strands; RBC,URINE TNTC /HPF (0-5); SQUAMOUS EPITHELIAL CELL,UR RARE Squamous (<= Few); WBC,URINE 0-3 /HPF (0-3)
--- NOTE | 2022-03-21 20:17 | CT Report ---
PROCEDURE: HEAD WO INDICATIONS: falling TECHNIQUE: Noncontrast 5 mm thick angled axial sections acquired from the foramen magnum to the vertex. For rad iation dose reduction, the following was used: automated exposure control, adjustment of mA and/or k V according to patient size. COMPARISON: 02/26/2022. FINDINGS: Image quality: There is motion artifact limiting evaluation. CSF spaces: There is moderate cerebral volume loss with prominence of the ventricles and sulci. Basa l cisterns are patent. No extra-axial fluid collections. Brain: No intracranial hemorrhage, mass, or mass effect. Gonsalez-white matter interface is preserved. T here are subcortical and periventricular white matter hypodensities consistent with mild chronic smal l vessel ischemic changes. Skull and face: Calvarium and visualized facial bones are intact, without suspicious lesions. Sinuses: Visualized sinuses and mastoids are clear. IMPRESSION: 1. No acute intracranial abnormality. 2. Moderate cerebral volume loss and chronic white matter small vessel ischemic changes redemonstrate d. Reviewed by: Shay Garza MD on 03/21/2022 8:16 PM PDT Approved by: Shay Garza MD on 03/21/2022 8:16 PM PDT Station ID: [id number]
--- NOTE | 2022-03-21 20:47 | CT Report ---
PROCEDURE: Abdomen/Pelvis WO INDICATIONS: hematuria TECHNIQUE: Noncontrast 5 mm thick sections acquired from the diaphragms to the symphysis. 5 mm coronal and sagi ttal reformats were then performed. For radiation dose reduction, the following was used: automated exposure control, adjustment of mA and/or kV according to patient size. COMPARISON: CT abdomen pelvis 11/27/2016. FINDINGS: Image quality: There is motion artifact limiting evaluation. Metallic streak artifact is present from patient's right hip prosthesis. Lung bases:There are small clustered indistinct groundglass nodular opacities within the visualized lung bases.. Heart: Heart is normal in size. There is a small hiatal hernia. ABDOMEN: Liver: No mass lesion. Gallbladder: Within normal limits without calcified gallstones. Biliary ducts: No biliary ductal dilatation. Pancreas: Unremarkable. Spleen: Normal in size. Adrenal Glands: No adrenal nodules. Kidneys and Ureters: No hydronephrosis.Bilateral renal cortical thinning is demonstrated. There is nonspecific perinephric stranding bilaterally. A small 0.2 cm nonobstructing renal stone is present w ithin the right kidney.There are a few small left parapelvic cysts. Stomach and Bowel: Stomach, small bowel loops, and colon are normal in caliber and wall thickness. N o pericecal inflammatory changes to suggest appendicitis. There is colonic diverticulosis without acu te diverticulitis. Peritoneum: No abnormal intraperitoneal fluid. No free air. Ventral Wall: No hernia. Abdominal Nodes: No retroperitoneal or mesenteric adenopathy by size criteria. Vessels: Aorta and inferior vena cava are normal in size. PELVIS: Pelvic Organs:There is mild enlargement of the prostate.Evaluation limited by metallic streak artif act from patient's right hip prosthesis in the absence of intravenous contrast. Bladder: Bladder wall is normal in thickness. There is a punctate focus of gas within the bladder noah men. Pelvic Nodes: No enlarged lymph nodes. Miscellaneous: No inguinal hernias are seen. Bones: There is a moderate to severe anterior compression fracture of the L1 vertebral body with swathi roximately 80% loss of height which is increased compared to the prior studies. There is slight poste rior displacement of the superior endplate component of L1 with associated mild to moderate spinal ca nal narrowing. Visualized osseous structures demonstrate no suspicious focal lesions. IMPRESSION: 1. Punctate nonobstructing stone within the right kidney. No obstructive uropathy. 2. Small focus of gas within the urinary bladder may represent sequelae of recent catheterization. Al ternatively, the findings may reflect infection from a gas-forming organism. Recommend correlation wi th clinical history and urinalysis. 3. Superior endplate compression fracture of the L1 vertebral body with increased loss of height comp ared to the prior studies. There is associated mild to moderate spinal canal narrowing. Reviewed by: Shay Garza MD on 03/21/2022 8:46 PM PDT Approved by: Shay Garza MD on 03/21/2022 8:46 PM PDT Station ID: [id number]
[2022-03-21] MEDS ORDERED: traZODone 50 MG TABLET PO STA (21:07)
[2022-03-21 21:10] VITALS: BP 160/84
== END 2022-03-21 21:26 | disposition home or self-care (01) ==
LOC: EDUNIT# → ED 17:05
DX: F03.90 Unspecified dementia, unspecified severity, without behavioral disturbance, psychotic disturbance, mood disturbance, and anxiety (principal); Z91.81 History of falling
CPT/HCPCS: 36415; 51701; 70450; 74176; 80048; 81001; 83605; 85025; 99283; 99284; A9270; 81003; 87086

== ENCOUNTER 2022-03-26 01:47 | Outpatient (CLI) | payer MEDICARE, OTHER | END 2022-03-26 01:48 | disposition EMS.NT | LOC: EMS 01:47 | DX: Z03.89 Encounter for observation for other suspected diseases and conditions ruled out (principal) ==

== ENCOUNTER 2022-08-11 14:22 | Emergency (ER) | payer MEDICARE, OTHER ==
[2022-08-11] MEDS: IPRATROPIUM/ALBUTEROL 3 ML NEB INH STA (14:46)
--- NOTE | 2022-08-11 15:04 | XRAY Report ---
PROCEDURE: Chest 1 View X-Ray INDICATIONS: cough,fever TECHNIQUE: One view of the chest was acquired. COMPARISON: 01/25/2021 FINDINGS: Surgical changes and devices: None. Lungs and pleura: No pleural effusions or pneumothorax. Lungs are clear. Mediastinum: Mediastinal contours appear normal. Heart size is normal. Bones and chest wall: No suspicious bony lesions. Age-appropriate degenerative changes are seen. O verlying soft tissues appear unremarkable. IMPRESSION: Portable chest within normal limits for age. Reviewed by: Gerald Gómez MD on 08/11/2022 2:02 PM [facility] Approved by: Gerald Gómez MD on 08/11/2022 2:02 PM [facility] Station ID: [id number]
[2022-08-11 15:40] LABS: BASOPHILS % (AUTO) 0.3 %; EOSINOPHILS # (AUTO) 0.1 10^3/uL (0.0-0.7); EOSINOPHILS % (AUTO) 0.9 %; HCT - HEMATOCRIT 45.8 % (42.0-52.0); HGB - HEMOGLOBIN 15.1 g/dL (14.0-18.0); LYMPHOCYTES # (AUTO) 0.7 10^3/uL (1.5-3.5); LYMPHOCYTES % (AUTO) 7.1 %; MEAN CORPUSCULAR HEMOGLOBIN 31.7 pg (27.0-31.0); MEAN PLATELET VOLUME 9.8 fL (7.4-11.4); MONOCYTES # (AUTO) 0.9 10^3/uL (0.0-1.0); MONOCYTES % (AUTO) 8.3 %; NEUTROPHILS # (AUTO) 8.5 10^3/uL (1.5-6.6); PLT - PLATELET COUNT 234 10^3/uL (130-450); RED BLOOD COUNT 4.77 10^6/uL (4.70-6.10); RED CELL DISTRIBUTION WIDTH 15.3 % (12.0-15.0); WHITE BLOOD COUNT 10.3 x10^3/uL (4.8-10.8)
[2022-08-11 15:51] LABS: CALCIUM 9.2 mg/dL (8.5-10.3); CREATININE 1.2 mg/dL (0.6-1.2); POTASSIUM 4.4 mmol/L (3.5-5.0)
[2022-08-11] MEDS: predniSONE 20 MG TABLET PO STA (15:52)
--- NOTE | 2022-08-11 15:57 | ED Physician Documentation ---
PD HPI URI - Stated complaint Stated Complaint: FEVER - Chief complaint Chief Complaint: Fever - History obtained from History obtained from: Family, EMS - History of Present Illness Timing - onset: How many days ago (3) Timing duration: Days (3) - Additional information Additional information: Patient is a 72-year-old male with a history of dementia brought in by EMS for fever and cough. He does have a history of asthma/COPD. Used a nebulizer treatment prior to arrival. 95 to 98% on room air with EMS. Nothing makes it better or worse. No vomiting. Review of Systems Unable to obtain: Dementia PD PAST MEDICAL HISTORY - Past Medical History Cardiovascular: None, Other Respiratory: Asthma, COPD, Other Neuro: Dementia, TIA Endocrine/Autoimmune: None GI: GERD : Incontinence, Frequency HEENT: None Psych: None Musculoskeletal: Osteoporosis, Other Derm: Other - Past Surgical History Past Surgical History: Yes Ortho: Hip replacement, Knee replacement - Present Medications Home Medications: Ambulatory Orders Medication Instructions Recorded Confirmed Atorvastatin Calcium [Lipitor] 20 mg PO DAILY 05/11/13 10/26/18 Donepezil HCl [Aricept] 10 mg PO QPM 03/05/14 10/26/18 Lisinopril 10 mg PO DAILY 03/05/14 10/26/18 Oxybutynin [Ditropan] 5 mg PO BID 03/05/14 10/26/18 Albuterol 2.5 mg INH QID PRN #30 neb 10/26/18 Aspirin [Aspirin EC] 325 mg PO DAILY #30 tablet. 10/26/18 Folic Acid 1 mg PO DAILY #30 tablet 10/26/18 Thiamine HCl [Vitamin B-1] 100 mg PO DAILY #30 tablet 10/26/18 Oxycodone HCl 5 mg PO TID PRN #10 tablet 09/14/19 traZODone [Desyrel] 50 mg PO HS #30 tablet 03/21/22 predniSONE [Deltasone] 40 mg PO DAILY #10 tablet 08/11/22 - Allergies Allergies/Adverse Reactions: Allergies Allergy/AdvReac Type Severity Reaction Status Date / Time cashew nut Allergy Respiratory Verified 03/21/22 17:13 Penicillins Allergy Rash Verified 03/21/22 17:13 sesame seed Allergy Respiratory Verified 03/21/22 17:13 walnut Allergy Respiratory Verified 03/21/22 17:13 - Social History Does the pt smoke?: No Smoking Status: Never smoker Does the pt drink ETOH?: Yes Does the pt have substance abuse?: No - Immunizations Immunizations are current?: Yes - POLST Patient has POLST: No PD ED PE NORMAL - Vitals Vital signs reviewed: Yes - General General: No acute distress, Well developed/nourished, Other (Alert, not oriented to person, place or time) - HEENT HEENT: Atraumatic, PERRL, Ears normal, Moist mucous membranes, Pharynx benign - Neck Neck: Supple, no meningeal sign - Cardiac Cardiac: RRR, Strong equal pulses - Respiratory Respiratory: No respiratory distress, Other (Minimal wheeze bilaterally) - Abdomen Abdomen: Soft, Non tender, Non distended - Derm Derm: Warm and dry - Extremities Extremities: No edema, No calf tenderness / cord - Neuro Neuro: Other (Alert) Results - Vitals Vitals: Vital Signs - 24 hr 08/11/22 08/11/22 08/11/22 14:41 14:46 16:42 Temperature 37.7 C 37.9 C Heart Rate 104 H 100 100 Respiratory 18 24 18 Rate Blood Pressure 152/82 H 178/90 H O2 Saturation 99 99 Oxygen O2 Source [Without Activity] Room air O2 Source Room air - Labs Labs: Laboratory Tests 08/11/22 08/11/22 08/11/22 15:29 15:29 15:30 WBC 10.3 RBC 4.77 Hgb 15.1 Hct 45.8 MCV 96.0 H MCH 31.7 H MCHC 33.0 RDW 15.3 H Plt Count 234 MPV 9.8 Neut # (Auto) 8.5 H Lymph # (Auto) 0.7 L [place] # (Auto) 0.9 Eos # (Auto) 0.1 Baso # (Auto) 0.0 Absolute Nucleated RBC 0.00 Nucleated RBC % 0.0 Sodium 139 Potassium 4.4 Chloride 103 Carbon Dioxide 26 Anion Gap 10.0 BUN 17 Creatinine 1.2 Estimated GFR (MDRD) 59 L Glucose 150 H Calcium 9.2 Nasal Adenovirus (PCR) NOT DETECTED Nasal B. parapertussis DNA (PCR) NOT DETECTED Nasal Coronavir 229E PCR NOT DETECTED Nasal Coronavir HKU1 PCR NOT DETECTED Nasal Coronavir NL63 PCR NOT DETECTED Nasal Coronavir OC43 PCR NOT DETECTED Nasal Enterovir/Rhinovir PCR NOT DETECTED Nasal Influenza B PCR NOT DETECTED Nasal Influenza A PCR NOT DETECTED Nasal Parainfluen 1 PCR NOT DETECTED Nasal Parainfluen 2 PCR NOT DETECTED Nasal Parainfluen 3 PCR NOT DETECTED Nasal Parainfluen 4 PCR NOT DETECTED Nasal RSV (PCR) DETECTED A Nasal B.pertussis DNA PCR NOT DETECTED Nasal C.pneumoniae (PCR) NOT DETECTED Simon Human Metapneumo PCR NOT DETECTED Nasal M.pneumoniae (PCR) NOT DETECTED Nasal SARS-CoV-2 (PCR) NOT DETECTED - Rads (name of study) Chest x-ray Radiology: Final report received, EMP read contemporaneously, See rad report (No acute abnormality) PD MEDICAL DECISION MAKING - ED course Complexity details: reviewed results, re-evaluated patient, considered differential, d/w family ED course: Patient is positive for RSV. Chest x-ray does not show any evidence of pneumonia. No hypoxia. Was given steroids and breathing treatments. Wheezing resolved. Eating and drinking without difficulty. We will continue steroids at his nursing facility. No indication for antibiotics currently. This document was made in part using voice recognition software. While efforts are made to proofread this document, sound alike and grammatical errors may occur. Departure - Departure Disposition: Home, Self Care Clinical Impression: Viral upper respiratory infection Condition: Good Instructions: ED Viral Syndrome Follow-Up: your,doctor in 1 week [Other] Prescriptions: predniSONE [Deltasone] 40 mg PO DAILY #10 tablet Comments: His blood work does not show any significant abnormalities today. His chest x- ray does not show any pneumonia. There is a viral respiratory swab pending, we will call you with the results. Your prescription was sent to [facility]. Discharge Date/Time: 08/11/22 16:54
[2022-08-11 16:54] VITALS: BP 178/90
[2022-08-11 16:55] LABS: B. PARAPERTUSSIS- RESP PCR PAN NOT DETECTED; B. PERTUSSIS- RESP PCR PANEL NOT DETECTED; C. PNEUMONIAE- RESP PCR PANEL NOT DETECTED; CORONAVIRUS 229E-RESP PCR NOT DETECTED; CORONAVIRUS HKU1-RESP PCR NOT DETECTED; CORONAVIRUS NL63-RESP PCR NOT DETECTED; CORONAVIRUS OC43-RESP PCR NOT DETECTED; HUMAN METAPNEUMOVIRUS NOT DETECTED; INFLUENZA A- RESP PCR PANEL NOT DETECTED; INFLUENZA B - RESP PCR PANEL NOT DETECTED; M. PNEUMONIAE- RESP PCR PANEL NOT DETECTED; PARAINFLUENZA VIRUS 1 NOT DETECTED; PARAINFLUENZA VIRUS 2 NOT DETECTED; PARAINFLUENZA VIRUS 3 NOT DETECTED; PARAINFLUENZA VIRUS 4 NOT DETECTED; RHINOVIRUS/ENTEROVIRUS NOT DETECTED; RSV- RESP PCR PANEL DETECTED; SARS-CoV-2 -RESP PCR PANEL NOT DETECTED
== END 2022-08-11 16:54 | disposition home or self-care (01) ==
LOC: EDBD → EDUNIT# → ED 14:22
DX: J06.9 Acute upper respiratory infection, unspecified (principal); B97.4 Respiratory syncytial virus as the cause of diseases classified elsewhere
CPT/HCPCS: 36415; 71045; 80048; 85025; 87633; 94640; 99282; 99284; J7512

== ENCOUNTER 2022-12-04 18:46 | Outpatient (CLI) | payer MEDICARE, OTHER | END 2022-12-04 18:47 | disposition critical access hospital (66) | LOC: EMS 18:46 | DX: R06.03 Acute respiratory distress (principal); R41.82 Altered mental status, unspecified | CPT/HCPCS: A0425; A0427 ==

== ENCOUNTER 2022-12-04 19:03 | Inpatient (IN) | payer MEDICARE, OTHER ==
[2022-12-04] MEDS ORDERED: IPRATROPIUM/ALBUTEROL 3 ML NEB INH STA (19:11)
[2022-12-04] MEDS ORDERED: methylPREDNISolone SUCCINATE 125 MG/2 ML VIAL IVP STA (19:12)
--- NOTE | 2022-12-04 19:14 | ED Physician Documentation ---
History of Present Illness - Stated complaint Stated Complaint: SOA - Chief complaint Chief Complaint: Resp - History obtained from History obtained from: EMS - History of Present Illness Timing: Today - Additonal information Additional information: Patient is a 72-year-old male, history of dementia who lives at a memory care facility. He was found with decreased responsiveness and increased work of breathing today. He is unable to give any history. EMS states that he has a history of COPD. They placed him on BiPAP and brought him to the emergency department. They state no other treatment given on route. His paperwork states that he has a history of interstitial lung disease and is status post a stem cell transplant. Unclear when this occurred. He is DNR with limited interventions. Review of Systems Unable to obtain: Dementia PD PAST MEDICAL HISTORY - Past Medical History Cardiovascular: None, Other Respiratory: Asthma, COPD, Other Neuro: Dementia, TIA Endocrine/Autoimmune: None GI: GERD : Incontinence, Frequency HEENT: None Psych: None Musculoskeletal: Osteoporosis, Other Derm: Other - Past Surgical History Past Surgical History: Yes Ortho: Hip replacement, Knee replacement - Present Medications Home Medications: Ambulatory Orders Medication Instructions Recorded Confirmed Atorvastatin Calcium [Lipitor] 20 mg PO DAILY 05/11/13 10/26/18 Donepezil HCl [Aricept] 10 mg PO QPM 03/05/14 10/26/18 Lisinopril 10 mg PO DAILY 03/05/14 10/26/18 Oxybutynin [Ditropan] 5 mg PO BID 03/05/14 10/26/18 Albuterol 2.5 mg INH QID PRN #30 neb 10/26/18 Aspirin [Aspirin EC] 325 mg PO DAILY #30 tablet. 10/26/18 Folic Acid 1 mg PO DAILY #30 tablet 10/26/18 Thiamine HCl [Vitamin B-1] 100 mg PO DAILY #30 tablet 10/26/18 Oxycodone HCl 5 mg PO TID PRN #10 tablet 09/14/19 traZODone [Desyrel] 50 mg PO HS #30 tablet 03/21/22 predniSONE [Deltasone] 40 mg PO DAILY #10 tablet 08/11/22 - Allergies Allergies/Adverse Reactions: Allergies Allergy/AdvReac Type Severity Reaction Status Date / Time cashew nut Allergy Respiratory Verified 12/04/22 19:12 Penicillins Allergy Rash Verified 12/04/22 19:12 sesame seed Allergy Respiratory Verified 12/04/22 19:12 walnut Allergy Respiratory Verified 12/04/22 19:12 - Social History Does the pt smoke?: No Smoking Status: Never smoker Does the pt drink ETOH?: Yes Does the pt have substance abuse?: No - Immunizations Immunizations are current?: Yes - POLST Patient has POLST: No PD ED PE NORMAL - Vitals Vital signs reviewed: Yes - General General: Well developed/nourished, Other (Mild respiratory distress on BiPAP.) - HEENT HEENT: Moist mucous membranes - Neck Neck: Supple, no meningeal sign - Cardiac Cardiac: RRR - Respiratory Respiratory: Other (very diminished breath sounds bilaterally with mild wheezing) - Abdomen Abdomen: Soft, Non tender, Non distended - Derm Derm: Warm and dry - Extremities Extremities: No calf tenderness / cord - Neuro Neuro: Other (drowsy, but easily awoken) Results - Vitals Vitals: Vital Signs - 24 hr 12/04/22 12/04/22 12/04/22 19:10 19:25 19:29 Temperature 35.6 C L Heart Rate 51 L 47 L 48 L Respiratory 19 24 Rate Blood Pressure 121/77 O2 Saturation 99 12/04/22 12/04/22 12/04/22 20:15 20:27 20:29 Temperature Heart Rate 49 L 52 L Respiratory 24 27 H 27 H Rate Blood Pressure 96/64 O2 Saturation 99 99 12/04/22 12/04/22 12/04/22 20:30 21:17 21:35 Temperature Heart Rate 50 L 54 L Respiratory 21 21 Rate Blood Pressure 96/64 118/63 136/85 H O2 Saturation 98 100 12/04/22 12/04/22 22:05 22:36 Temperature Heart Rate 55 L 48 L Respiratory 16 Rate Blood Pressure 151/82 H 138/75 H O2 Saturation 98 100 Oxygen O2 Source [] Room air O2 Source BIPAP - EKG (time done) 1912 EKG releavant findings:: EKG personally interpreted by author of this note. Relevant findings are: Rate: Rate (enter#) (50) Rhythm: NSR Intervals: RBBB - Labs Labs: Laboratory Tests 12/04/22 12/04/22 12/04/22 19:10 19:53 19:53 WBC 9.0 RBC 5.14 Hgb 15.9 Hct 50.4 MCV 98.1 H MCH 30.9 MCHC 31.5 L RDW 17.5 H Plt Count 126 L MPV 10.9 Neut # (Auto) 7.0 H Lymph # (Auto) 1.1 L [place] # (Auto) 0.7 Eos # (Auto) 0.1 Baso # (Auto) 0.0 Absolute Nucleated RBC 0.00 Nucleated RBC % 0.0 Sodium 142 Potassium 4.4 Chloride 106 Carbon Dioxide 25 Anion Gap 11.0 BUN 26 H Creatinine 1.3 H Estimated GFR (MDRD) 54 L Glucose 109 H Calcium 9.9 Total Bilirubin 0.4 AST 31 ALT 48 Alkaline Phosphatase 99 Total Protein 7.8 Albumin 4.0 Globulin 3.8 Albumin/Globulin Ratio 1.1 Lipase 30 Nasal Adenovirus (PCR) NOT DETECTED Nasal B. parapertussis DNA (PCR) NOT DETECTED Nasal Coronavir 229E PCR NOT DETECTED Nasal Coronavir HKU1 PCR NOT DETECTED Nasal Coronavir NL63 PCR NOT DETECTED Nasal Coronavir OC43 PCR NOT DETECTED Nasal Enterovir/Rhinovir PCR NOT DETECTED Nasal Influenza B PCR NOT DETECTED Nasal Influenza A PCR NOT DETECTED Nasal Parainfluen 1 PCR NOT DETECTED Nasal Parainfluen 2 PCR NOT DETECTED Nasal Parainfluen 3 PCR NOT DETECTED Nasal Parainfluen 4 PCR NOT DETECTED Nasal RSV (PCR) NOT DETECTED Nasal B.pertussis DNA PCR NOT DETECTED Nasal C.pneumoniae (PCR) NOT DETECTED Simon Human Metapneumo PCR NOT DETECTED Nasal M.pneumoniae (PCR) NOT DETECTED Nasal SARS-CoV-2 (PCR) DETECTED A - Rads (name of study) cxr Relevant Findings:: Final report received, See rad report PD Medical Decision Making - ED course Complexity details: reviewed results, re-evaluated patient, considered differential, d/w family (Spoke with at bedside), d/w accounting consultant ED course: Patient is a 72-year-old male with a history of COPD, interstitial lung disease who presents to the emergency department with very diminished breath sounds, was hypoxic at his [facility] facility. He was placed on BiPAP. Given Solu-Medrol and 3 nebulizer treatments. He is breathing more comfortably on the BiPAP, but tires very quickly when taken off the BiPAP. He is positive for COVID. No evidence of pneumonia. We will admit the patient for further care of his COVID and increased work of breathing with COPD and interstitial lung disease. Discussed the case with the tele-hospitalist who accepts. This document was made in part using voice recognition software. While efforts are made to proofread this document, sound alike and grammatical errors may occur. Departure - Departure Disposition: [facility] DC/Xfer Clinical Impression: COPD exacerbation, Interstitial lung disease, COVID-19 Acute respiratory failure Qualifiers: Respiratory failure complication: unspecified whether with hypoxia or hypercapnia Qualified Code(s): J96.00 - Acute respiratory failure, unspecified whether with hypoxia or hypercapnia Condition: Stable
[2022-12-04] MEDS ORDERED: ALBUTEROL NEB 2.5 MG/3 ML INH STA (19:48)
[2022-12-04] MEDS ORDERED: SODIUM CHLORIDE 0.9% 1,000 ML IV STA ×2 (19:48)
--- NOTE | 2022-12-04 19:57 | XRAY Report ---
PROCEDURE: Chest 1 View X-Ray INDICATIONS: COPD TECHNIQUE: One view of the chest was acquired. COMPARISON: Chest radiograph 04/10/2022. FINDINGS: Surgical changes and devices: None. Lungs and pleura: No pleural effusions or pneumothorax. Mild chronic interstitial opacities do not a ppear significantly changed when compared to the prior radiographs from 08/11/2022. No acute consolid ation. Mediastinum: Mediastinal contours appear normal. Heart size is normal. Bones and chest wall: No suspicious bony lesions. Overlying soft tissues appear unremarkable. IMPRESSION: No acute cardiopulmonary abnormality. Reviewed by: Chato Goel MD on 12/04/2022 7:56 PM PDT Approved by: Chato Goel MD on 12/04/2022 7:56 PM PDT Station ID: [id number]
[2022-12-04 19:59] LABS: BASOPHILS % (AUTO) 0.2 %; EOSINOPHILS # (AUTO) 0.1 10^3/uL (0.0-0.7); EOSINOPHILS % (AUTO) 0.8 %; HCT - HEMATOCRIT 50.4 % (42.0-52.0); HGB - HEMOGLOBIN 15.9 g/dL (14.0-18.0); LYMPHOCYTES # (AUTO) 1.1 10^3/uL (1.5-3.5); LYMPHOCYTES % (AUTO) 12.3 %; MEAN CORPUSCULAR HEMOGLOBIN 30.9 pg (27.0-31.0); MEAN CORPUSCULAR HGB CONC 31.5 g/dL (32.0-36.0); MEAN CORPUSCULAR VOLUME 98.1 fL (80.0-94.0); MEAN PLATELET VOLUME 10.9 fL (7.4-11.4); MONOCYTES # (AUTO) 0.7 10^3/uL (0.0-1.0); MONOCYTES % (AUTO) 8.2 %; NEUTROPHILS % (AUTO) 78.3 %; PLT - PLATELET COUNT 126 10^3/uL (130-450); RED BLOOD COUNT 5.14 10^6/uL (4.70-6.10); RED CELL DISTRIBUTION WIDTH 17.5 % (12.0-15.0)
[2022-12-04 20:06] LABS: B. PARAPERTUSSIS- RESP PCR PAN NOT DETECTED; B. PERTUSSIS- RESP PCR PANEL NOT DETECTED; C. PNEUMONIAE- RESP PCR PANEL NOT DETECTED; CORONAVIRUS 229E-RESP PCR NOT DETECTED; CORONAVIRUS HKU1-RESP PCR NOT DETECTED; CORONAVIRUS NL63-RESP PCR NOT DETECTED; CORONAVIRUS OC43-RESP PCR NOT DETECTED; HUMAN METAPNEUMOVIRUS NOT DETECTED; INFLUENZA A- RESP PCR PANEL NOT DETECTED; INFLUENZA B - RESP PCR PANEL NOT DETECTED; M. PNEUMONIAE- RESP PCR PANEL NOT DETECTED; PARAINFLUENZA VIRUS 1 NOT DETECTED; PARAINFLUENZA VIRUS 2 NOT DETECTED; PARAINFLUENZA VIRUS 3 NOT DETECTED; PARAINFLUENZA VIRUS 4 NOT DETECTED; RHINOVIRUS/ENTEROVIRUS NOT DETECTED; RSV- RESP PCR PANEL NOT DETECTED; SARS-CoV-2 -RESP PCR PANEL DETECTED
[2022-12-04 20:09] LABS: ALBUMIN/GLOBULIN RATIO 1.1 (1.0-2.2); BILIRUBIN,TOTAL 0.4 mg/dL (0.2-1.0); CALCIUM 9.9 mg/dL (8.5-10.3); CREATININE 1.3 mg/dL (0.6-1.2); POTASSIUM 4.4 mmol/L (3.5-5.0); TOTAL PROTEIN 7.8 g/dL (6.7-8.2)
[2022-12-04] MEDS ORDERED: ALBUTEROL NEB 2.5 MG/3 ML INH PRN (23:03)
[2022-12-04] MEDS ORDERED: oxyCODONE 5 MG TABLET PO PRN (23:03)
[2022-12-04] MEDS ORDERED: ACETAMINOPHEN 325 MG TABLET PO PRN (23:06)
[2022-12-04] MEDS ORDERED: ONDANSETRON 4 MG/2 ML VIAL IVP PRN (23:06)
[2022-12-04] MEDS ORDERED: SODIUM CHLORIDE FLUSH 0.9% 10 ML SYRINGE IVP PRN (23:06)
[2022-12-04] MEDS ORDERED: HYDROcod/ACETAM 5/325 MG TABLET PO PRN (23:06)
[2022-12-04] MEDS ORDERED: DEXAMETHASONE 10 MG/ML VIAL PO STA (23:09)
[2022-12-04] MEDS ORDERED: CHERRY SYRUP 10 ML UDC PO SCH (23:10)
--- NOTE | 2022-12-04 23:27 | HISTORY & PHYSICAL EXAMINATION ---
Chief Complaint - Chief Complaint Chief Complaint: SOB History of Present Illness - Admitted From Admitted From:: Memory care unit - History Obtained From Records Reviewed: Yes History obtained from: ER MD as patient has advanced dementia and unable to contribute - History of Present Illness HPI Comment/Other: Patient is a 72-year-old male, history of dementia who lives at a memory care facility. He was found with decreased responsiveness and increased work of breathing today. He is unable to give any history. EMS states that he has a history of COPD. They placed him on BiPAP and brought him to the emergency department. They state no other treatment given on route. His paperwork states that he has a history of interstitial lung disease and is status post a stem cell transplant. Unclear when this occurred. He is DNR with limited interventions.Patient looks comfortable in Er hx obtained from ER MD, plan to admit for observation for supportive care History - Past Medical History Cardiovascular: reports: None, Other Respiratory: reports: Asthma, COPD, Other Neuro: reports: Dementia, TIA Endocrine/Autoimmune: reports: None GI: reports: GERD : reports: Incontinence, Frequency HEENT: reports: None Psych: reports: None Musculoskeletal: reports: Osteoporosis, Other Derm: reports: Other MRSA Hx?: No - Past Surgical History Ortho: reports: Hip replacement, Knee replacement - POLST Patient has POLST: No Meds/Allgy - Home Medications Home Medications: Ambulatory Orders Medication Instructions Recorded Confirmed Atorvastatin Calcium [Lipitor] 20 mg PO DAILY 05/11/13 10/26/18 Donepezil HCl [Aricept] 10 mg PO QPM 03/05/14 10/26/18 Lisinopril 10 mg PO DAILY 03/05/14 10/26/18 Oxybutynin [Ditropan] 5 mg PO BID 03/05/14 10/26/18 Albuterol 2.5 mg INH QID PRN #30 neb 10/26/18 Aspirin [Aspirin EC] 325 mg PO DAILY #30 tablet. 10/26/18 Folic Acid 1 mg PO DAILY #30 tablet 10/26/18 Thiamine HCl [Vitamin B-1] 100 mg PO DAILY #30 tablet 10/26/18 Oxycodone HCl 5 mg PO TID PRN #10 tablet 09/14/19 traZODone [Desyrel] 50 mg PO HS #30 tablet 03/21/22 predniSONE [Deltasone] 40 mg PO DAILY #10 tablet 08/11/22 - Allergies Allergies/Adverse Reactions: Allergies Allergy/AdvReac Type Severity Reaction Status Date / Time cashew nut Allergy Respiratory Verified 12/04/22 19:12 Penicillins Allergy Rash Verified 12/04/22 19:12 sesame seed Allergy Respiratory Verified 12/04/22 19:12 walnut Allergy Respiratory Verified 12/04/22 19:12 Prior Level of Functionality: Limited and a resident of Memory care unit Exam - Vital Signs Vital Signs: Vital Signs x48h Temp Pulse Resp BP Pulse Ox 12/04/22 23:01 45 L 12/04/22 22:36 48 L 16 138/75 H 100 12/04/22 22:05 55 L 151/82 H 98 12/04/22 21:35 54 L 21 136/85 H 100 12/04/22 21:17 50 L 21 118/63 98 12/04/22 20:30 96/64 12/04/22 20:29 52 L 27 H 96/64 99 12/04/22 20:27 49 L 27 H 99 12/04/22 20:15 24 12/04/22 19:29 48 L 12/04/22 19:25 47 L 24 12/04/22 19:10 35.6 C L 51 L 19 121/77 99 - Physical Exam General Appearance: positive: Mild distress Eyes Bilateral: positive: Normal inspection, PERRL Neck: positive: Nml inspection Extremities: positive: Non-tender, Full ROM, Nml appearance, Calf tenderness Neurologic/Psychiatric: positive: Disoriented to person, Disoriented to place, Disoriented to time Sepsis Event Note (H) - Evaluation Current Stage of Sepsis: Ruled out Conclusion/Plan - Problem List (1) Acute respiratory failure Conclusion/Plan: Supporitve care Bipap as needed Supplemenatl oxygen Qualifiers: Respiratory failure complication: hypoxia Qualified Code(s): J96.01 - Acute respiratory failure with hypoxia (2) COPD exacerbation Conclusion/Plan: Duonebs prn Supplemental oxygen Supportive care (3) COVID-19 Conclusion/Plan: Decadron 6 mg Judicious fluid input Remdesevir may be helpful not availabe at this time, if continues to be on high FIO2 then not very helpful (5) Acute renal failure Conclusion/Plan: Given fluid in ER Supprotive care Avoid nephrotoxins REpeat creatinine in am - Lab Results Fish Bones: 12/04/22 19:53 12/04/22 19:53 - EKG Results EKG Interpreted Independently: No EKG Comparison: Unchanged from prior EKG, Old EKG unavailable
[2022-12-04] MEDS ORDERED: IPRATROPIUM/ALBUTEROL 3 ML NEB INH PRN (23:31)
[2022-12-04] MEDS ORDERED: CHERRY SYRUP 10 ML UDC PO ONE (23:34)
[2022-12-05] MEDS: traZODone 50 MG TABLET PO SCH ×2 (02:17→20:49)
[2022-12-05] MEDS: SODIUM CHLORIDE FLUSH 0.9% 10 ML SYRINGE IVP SCH ×3 (02:23→17:21)
[2022-12-05] MEDS: SODIUM CHLORIDE 0.9% 1,000 ML IV SCH ×2 (02:23→19:49)
[2022-12-05] MEDS ORDERED: DEXAMETHASONE 10 MG/ML VIAL PO SCH (07:00)
[2022-12-05] MEDS ORDERED: DEXAMETHASONE 10 MG/ML VIAL IV SCH (08:27)
[2022-12-05] MEDS: ASPIRIN EC 325 MG TABLET PO SCH (08:54)
[2022-12-05] MEDS ORDERED: ATORVASTATIN 10 MG TABLET PO SCH (09:00)
[2022-12-05] MEDS ORDERED: SOLIFENACIN SUCCINATE 5 MG TABLET PO SCH (09:00)
[2022-12-05] MEDS ORDERED: FOLIC ACID 1 MG TABLET PO SCH (09:00)
[2022-12-05] MEDS ORDERED: DEXAMETHASONE 4 MG/ML VIAL IVP SCH (10:00)
[2022-12-05] MEDS: IPRATROPIUM/ALBUTEROL 3 ML NEB INH SCH (10:20)
[2022-12-05] MEDS ORDERED: REMDESIVIR 100MG VIAL 200 MG in SODIUM CHLORIDE 0.9% 250 ML IV ONE (11:00)
[2022-12-05] MEDS: ENOXAPARIN 40 MG/0.4 ML SYRINGE SUBQ SCH (12:04)
--- NOTE | 2022-12-05 14:31 | PROVIDER PROGRESS NOTE ---
Assessment/Plan - Problem List (1) Acute respiratory failure with hypoxia Assessment/Plan: The cause appears to be COPD exacerbation, given his underlying ILD, caused by COVID-pneumonia Plan: Continue with O2 supplemental, titrate down when possible Target saturation will be 88% or above We will treat the underlying problems, the COVID and the COPD (2) COVID-19 Assessment/Plan: Although he is not no localized infiltrate, he is positive for COVID which likely led to the exacerbation of his lung disease Plan: Continue with infectious isolation Continue with Decadron at 6 mg IV daily as per guidelines We will start daily iv Remdesivir; hhe qualifies because of having hypoxia but not needing a ventilator and his diagnosis is very recent (yesterday) (3) COPD exacerbation Assessment/Plan: Plan: We will order DuoNebs scheduled 4 times daily and every 4 hours as needed We will continue with IV steroids We will give cough medicines if needed We will give supplemental O2, target saturations will be 88% and above (4) Interstitial lung disease Assessment/Plan: As per history. Plan: We will await his medication list to be reconciled then resume any meds that he was on for this ILD (5) PRESLEY (acute kidney injury) Assessment/Plan: All labs were reviewed. He presented with BUN/creatinine of 26/1.3. His baseline creatinine is 1.1 Plan: IV fluids have been started. Avoid nephrotoxins We will follow BMP daily and stop iv fluids when he has normalized BUN/creatinine if he is hydrating adequately (6) Dementia Assessment/Plan: As per history. Patient needed to be fed and needs complete halfway care. Today the RN noted that he was coughing and sputtering when trying to swallow p.o. meds. Speech Therapy evaluation of his swallowing was ordered for today and was completed. The Speech Therapist recommend that we change his regular diet to a pured diet with thin liquid Plan: We will change the diet to pured diet with thin liquids Continue supportive (halfway) care We will await his medication list to be reconciled and resume any medications that he may be on for the dementia - Current Meds Current Meds: Current Medications Generic Name Dose Route Start Last Admin Trade Name Freq PRN Reason Stop Dose Admin Albuterol 2.5 mg 12/04/22 23:03 12/04/22 23:16 Albuterol Neb 2.5 Mg/3 Ml INH 2.5 mg QID PRN Administration Asthma Albuterol/Ipratropium 3 ml 12/05/22 09:17 12/05/22 10:20 Ipratropium/Albuterol 3 Ml Neb INH 3 ml RTQID MARIBEL Administration Aspirin 325 mg 12/05/22 09:00 12/05/22 08:54 Aspirin Ec 325 Mg Tablet PO 325 mg DAILY MARIBEL Administration Atorvastatin Calcium 20 mg 12/05/22 09:00 12/05/22 08:53 Atorvastatin 10 Mg Tablet PO 20 mg DAILY MARIBEL Administration Dexamethasone Sodium Phosphate 10 mg 12/05/22 08:27 12/05/22 08:53 Dexamethasone 10 Mg/Ml Vial IV 12/06/22 06:59 10 mg ONCE MARIBEL Administration Enoxaparin Sodium 40 mg 12/05/22 10:00 12/05/22 12:04 Enoxaparin 40 Mg/0.4 Ml Syringe SUBQ 40 mg DAILY MARIBEL Administration Folic Acid 1 mg 12/05/22 09:00 12/05/22 08:53 Folic Acid 1 Mg Tablet PO 1 mg DAILY MARIBEL Administration Sodium Chloride 1,000 mls @ 50 mls/hr 12/04/22 23:45 12/05/22 13:45 Normal Saline 0.9% IV 0 mls/hr .Q20H MARIBEL Infusion Sodium Chloride 10 ml 12/05/22 01:00 12/05/22 08:53 Sodium Chloride Flush 0.9% 10 Ml Syringe IVP 10 ml 0100,0900,1700 MARIBEL Administration Solifenacin 5 mg 12/05/22 09:00 12/05/22 08:52 Solifenacin Succinate 5 Mg Tablet PO 5 mg DAILY MARIBEL Administration Trazodone HCl 50 mg 12/04/22 23:45 12/05/22 02:17 Trazodone 50 Mg Tablet PO Not Given HS MARIBEL - Lab Result Fish Bone Diagrams: 12/04/22 19:53 12/04/22 19:53 - Additional Planning My Orders: My Active Orders 12/05/22 Swallow [Clinical Swallow Eval w/Modified ST] [ST] Routine 12/05/22 09:17 Nebulizer/MDI Tx. [RC] QID Resp Teach Nebulizer/MDI [RC] .ONCE Ipratropium/Albuterol [Duoneb] 3 ml INH RTQID 12/05/22 09:18 Telemetry- [RC] Q4HR 12/05/22 10:00 Enoxaparin [Lovenox] 40 mg SUBQ DAILY 12/05/22 Dinner DIET [Dysphagia - Puree] [DIET] 12/06/22 05:00 BMP - BASIC METABOLIC PANEL [CHEM] DAILYLAB CBC - COMP BLD CT W/AUTO DIFF [HEME] DAILYLAB MAGNESIUM [CHEM] DAILYLAB PHOSPHORUS [CHEM] DAILYLAB 12/06/22 09:00 Remdesivir 100Mg Vial [Veklury] 100 mg Sodium Chloride 0.9% 100Ml [Normal Saline 0.9% 100Ml] 100 ml IV DAILY 12/07/22 05:00 BMP - BASIC METABOLIC PANEL [CHEM] DAILYLAB CBC - COMP BLD CT W/AUTO DIFF [HEME] DAILYLAB 12/07/22 09:00 dexAMETHasone [Decadron] 6 mg IVP DAILY 12/08/22 05:00 BMP - BASIC METABOLIC PANEL [CHEM] DAILYLAB CBC - COMP BLD CT W/AUTO DIFF [HEME] DAILYLAB 12/09/22 05:00 BMP - BASIC METABOLIC PANEL [CHEM] DAILYLAB CBC - COMP BLD CT W/AUTO DIFF [HEME] DAILYLAB Subjective - Subjective Nursing Reports: Other (RN reported that he is coughing and sputtering and possibly aspirated when he was taking meds with p.o. liquids) Objective Vital Signs: Vital Signs - 24 hr 12/04/22 12/04/22 12/04/22 19:10 19:25 19:29 Temperature 35.6 C L Heart Rate 51 L 47 L 48 L Heart Rate [ Brachial] Heart Rate [ Monitoring electrodes] Respiratory 19 24 Rate Blood Pressure 121/77 Blood Pressure [Left Brachial artery] O2 Saturation 99 If not protocol : Oxygen Flow, liters/minute 12/04/22 12/04/22 12/04/22 20:15 20:27 20:29 Temperature Heart Rate 49 L 52 L Heart Rate [ Brachial] Heart Rate [ Monitoring electrodes] Respiratory 24 27 H 27 H Rate Blood Pressure 96/64 Blood Pressure [Left Brachial artery] O2 Saturation 99 99 If not protocol : Oxygen Flow, liters/minute 12/04/22 12/04/22 12/04/22 20:30 21:17 21:35 Temperature Heart Rate 50 L 54 L Heart Rate [ Brachial] Heart Rate [ Monitoring electrodes] Respiratory 21 21 Rate Blood Pressure 96/64 118/63 136/85 H Blood Pressure [Left Brachial artery] O2 Saturation 98 100 If not protocol : Oxygen Flow, liters/minute 12/04/22 12/04/22 12/04/22 22:05 22:36 23:01 Temperature Heart Rate 55 L 48 L 45 L Heart Rate [ Brachial] Heart Rate [ Monitoring electrodes] Respiratory 16 Rate Blood Pressure 151/82 H 138/75 H Blood Pressure [Left Brachial artery] O2 Saturation 98 100 If not protocol : Oxygen Flow, liters/minute 12/04/22 12/05/22 12/05/22 23:41 00:00 00:22 Temperature 34.5 C L Heart Rate 49 L 47 L Heart Rate [ Brachial] Heart Rate [ 62 Monitoring electrodes] Respiratory 16 22 Rate Blood Pressure 152/78 H 142/75 H Blood Pressure 153/97 H [Left Brachial artery] O2 Saturation 100 98 100 If not protocol 4 : Oxygen Flow, liters/minute 12/05/22 12/05/22 12/05/22 01:00 01:32 02:00 Temperature 35.2 C L Heart Rate 68 54 L Heart Rate [ Brachial] Heart Rate [ Monitoring electrodes] Respiratory 20 11 L Rate Blood Pressure 176/113 H 138/91 H Blood Pressure [Left Brachial artery] O2 Saturation 98 98 If not protocol 4 4 : Oxygen Flow, liters/minute 12/05/22 12/05/22 12/05/22 02:11 08:25 10:26 Temperature 35.4 C L Heart Rate 76 Heart Rate [ 63 Brachial] Heart Rate [ Monitoring electrodes] Respiratory 20 16 Rate Blood Pressure Blood Pressure 158/95 H [Left Brachial artery] O2 Saturation 95 If not protocol 4 4 4 : Oxygen Flow, liters/minute 12/05/22 13:17 Temperature 35.5 C L Heart Rate Heart Rate [ 95 Brachial] Heart Rate [ Monitoring electrodes] Respiratory 24 Rate Blood Pressure Blood Pressure 132/106 H [Left Brachial artery] O2 Saturation 94 If not protocol : Oxygen Flow, liters/minute Oxygen O2 Source [Without Activity] Room air O2 Source Nasal cannula I&O (Last 24 Hrs): Intake and Output Totals x24h 12/03/22 12/04/22 12/05/22 23:59 23:59 23:59 Intake Total 1000 1718.333 Output Total 0 Balance 1000 1718.333 General: Alert, Other (Exam done remotely) HEENT: Mucous membr. moist/pink Neck: Supple Neuro: Other (Poor memory) Cardiovascular: Regular rate Respiratory: Rhonchi (per RT), Other (No distress at rest, is wearing O2 per na helene cannula) - Results Results: Laboratory Results WBC 9.0 x10^3/uL (4.8-10.8) 12/04/22 19:53 RBC 5.14 10^6/uL (4.70-6.10) 12/04/22 19:53 Hgb 15.9 g/dL (14.0-18.0) 12/04/22 19:53 Hct 50.4 % (42.0-52.0) 12/04/22 19:53 MCV 98.1 fL (80.0-94.0) H 12/04/22 19:53 MCH 30.9 pg (27.0-31.0) 12/04/22 19:53 MCHC 31.5 g/dL (32.0-36.0) L 12/04/22 19:53 RDW 17.5 % (12.0-15.0) H 12/04/22 19:53 Plt Count 126 10^3/uL (130-450) L 12/04/22 19:53 MPV 10.9 fL (7.4-11.4) 12/04/22 19:53 Neut # (Auto) 7.0 10^3/uL (1.5-6.6) H 12/04/22 19:53 Lymph # (Auto) 1.1 10^3/uL (1.5-3.5) L 12/04/22 19:53 Frontier # (Auto) 0.7 10^3/uL (0.0-1.0) 12/04/22 19:53 Eos # (Auto) 0.1 10^3/uL (0.0-0.7) 12/04/22 19:53 Baso # (Auto) 0.0 10^3/uL (0.0-0.1) 12/04/22 19:53 Absolute Nucleated RBC 0.00 x10^3/uL 12/04/22 19:53 Nucleated RBC % 0.0 /100WBC 12/04/22 19:53 Sodium 142 mmol/L (135-145) 12/04/22 19:53 Potassium 4.4 mmol/L (3.5-5.0) 12/04/22 19:53 Chloride 106 mmol/L (101-111) 12/04/22 19:53 Carbon Dioxide 25 mmol/L (21-32) 12/04/22 19:53 Anion Gap 11.0 (6-13) 12/04/22 19:53 BUN 26 mg/dL (6-20) H 12/04/22 19:53 Creatinine 1.3 mg/dL (0.6-1.2) H 12/04/22 19:53 Estimated GFR (MDRD) 54 (>89) L 12/04/22 19:53 Glucose 109 mg/dL (70-100) H 12/04/22 19:53 Calcium 9.9 mg/dL (8.5-10.3) 12/04/22 19:53 Total Bilirubin 0.4 mg/dL (0.2-1.0) 12/04/22 19:53 AST 31 IU/L (10-42) 12/04/22 19:53 ALT 48 IU/L (10-60) 12/04/22 19:53 Alkaline Phosphatase 99 IU/L (42-121) 12/04/22 19:53 Total Protein 7.8 g/dL (6.7-8.2) 12/04/22 19:53 Albumin 4.0 g/dL (3.2-5.5) 12/04/22 19:53 Globulin 3.8 g/dL (2.1-4.2) 12/04/22 19:53 Albumin/Globulin Ratio 1.1 (1.0-2.2) 12/04/22 19:53 Lipase 30 U/L (22-51) 12/04/22 19:53 Nasal Adenovirus (PCR) NOT DETECTED 12/04/22 19:10 Nasal B. parapertussis DNA (PCR) NOT DETECTED 12/04/22 19:10 Nasal Coronavir 229E PCR NOT DETECTED 12/04/22 19:10 Nasal Coronavir HKU1 PCR NOT DETECTED 12/04/22 19:10 Nasal Coronavir NL63 PCR NOT DETECTED 12/04/22 19:10 Nasal Coronavir OC43 PCR NOT DETECTED 12/04/22 19:10 Nasal Enterovir/Rhinovir PCR NOT DETECTED 12/04/22 19:10 Nasal Influenza B PCR NOT DETECTED 12/04/22 19:10 Nasal Influenza A PCR NOT DETECTED 12/04/22 19:10 Nasal Parainfluen 1 PCR NOT DETECTED 12/04/22 19:10 Nasal Parainfluen 2 PCR NOT DETECTED 12/04/22 19:10 Nasal Parainfluen 3 PCR NOT DETECTED 12/04/22 19:10 Nasal Parainfluen 4 PCR NOT DETECTED 12/04/22 19:10 Nasal RSV (PCR) NOT DETECTED 12/04/22 19:10 Nasal B.pertussis DNA PCR NOT DETECTED 12/04/22 19:10 Nasal C.pneumoniae (PCR) NOT DETECTED 12/04/22 19:10 Simon Human Metapneumo PCR NOT DETECTED 12/04/22 19:10 Nasal M.pneumoniae (PCR) NOT DETECTED 12/04/22 19:10 Nasal SARS-CoV-2 (PCR) DETECTED A 12/04/22 19:10 - Procedures Procedures: Procedures EXCISION OF SIGMOID COLON, ENDO, DIAGN (12/16/15) HIP BEARING SURFACE, [id number] (03/08/14) PACKED CELL TRANSFUSION (03/08/14) TOTAL HIP REPLACEMENT (03/08/14) Sepsis Event Note (H) - Evaluation Current Stage of Sepsis: Ruled out
[2022-12-05] MEDS: SCOPOLAMINE PATCH TOP SCH (17:41)
--- NOTE | 2022-12-05 18:54 | PHARMACY PROGRESS NOTE ---
- Best Possible Medication History Admit Date and Time: 12/05/22 0322 Processed by: Pharmacy Medication History completed: Yes Patient Interview: Pt unable to participate Secondary Source(s): Insurance records, Facility MAR as ONLY source As the person ultimately responsible for medication therapy, providers are able to order a medication from an existing home medication list in [facility] via the "Reconcile Routine" prior to Confirmation of that medication by net application support specialist. Such practice is discouraged except when the physician, in their clinical judgment, deems that a medical need exists for a medication without regard to previous use.
[2022-12-05] MEDS: MORPHINE 2 MG/ML CARPUJECT IVP PRN (19:47)
[2022-12-05] MEDS: DONEPEZIL 5 MG TABLET PO SCH (20:49)
[2022-12-06] MEDS: MORPHINE 2 MG/ML CARPUJECT IVP PRN ×2 (04:18→11:52)
[2022-12-06] MEDS: SODIUM CHLORIDE FLUSH 0.9% 10 ML SYRINGE IVP SCH ×3 (04:20→18:31)
[2022-12-06 05:42] LABS: BASOPHILS % (AUTO) 0.9 %; EOSINOPHILS % (AUTO) 1.2 %; HCT - HEMATOCRIT 50.2 % (42.0-52.0); HGB - HEMOGLOBIN 15.9 g/dL (14.0-18.0); MEAN CORPUSCULAR HEMOGLOBIN 31.4 pg (27.0-31.0); MEAN CORPUSCULAR HGB CONC 31.7 g/dL (32.0-36.0); MEAN PLATELET VOLUME 11.2 fL (7.4-11.4); MONOCYTES % (AUTO) 6.4 %; NEUTROPHILS % (AUTO) 87.3 %; PLT - PLATELET COUNT 128 10^3/uL (130-450); RED BLOOD COUNT 5.07 10^6/uL (4.70-6.10); RED CELL DISTRIBUTION WIDTH 18.6 % (12.0-15.0); WHITE BLOOD COUNT 11.2 x10^3/uL (4.8-10.8)
[2022-12-06 05:44] LABS: ABNORMAL LYMPHS % (MANUAL) 0 %; LYMPHOCYTES % (MANUAL) 0 %
[2022-12-06 05:53] LABS: CALCIUM 9.2 mg/dL (8.5-10.3); CREATININE 1.1 mg/dL (0.6-1.2); PHOSPHORUS 3.8 mg/dL (2.5-4.6); POTASSIUM 5.7 mmol/L (3.5-5.0)
[2022-12-06 06:06] LABS: BAND NEUTROPHILS % (MANUAL) 58 %; LYMPHOCYTES # (MANUAL) 0.2 10^3/uL (1.5-3.5); METAMYELOCYTES % (MANUAL) 1 %; MONOCYTES # (MANUAL) 0.1 10^3/uL (0.0-1.0); NEUTROPHILS # (MANUAL) 10.8 10^3/uL (1.5-6.6); NUCLEATED RBC (MANUAL) 1 %; REACTIVE LYMPHS % (MANUAL) 2 %
[2022-12-06 06:07] LABS: RBC MORPHOLOGY (MULTIPLE) 1+ HYPOCHROMASIA (NORMAL); WBC MORPHOLOGY (MULTIPLE) 2+ VACUOLATION (NORMAL)
[2022-12-06 06:08] LABS: DIFFERENTIAL COMMENT MANUAL DIFFERENTIAL
[2022-12-06] MEDS: IPRATROPIUM/ALBUTEROL 3 ML NEB INH SCH ×5 (07:22→15:19)
[2022-12-06] MEDS ORDERED: AZITHROMYCIN INJ 500 MG in SODIUM CHLORIDE 0.9% 250 ML IV STA (08:01)
[2022-12-06] MEDS: REMDESIVIR 100MG VIAL 100 MG in SODIUM CHLORIDE 0.9% 100ML 100 ML IV SCH (09:45)
[2022-12-06] MEDS: ENOXAPARIN 40 MG/0.4 ML SYRINGE SUBQ SCH (09:52)
[2022-12-06] MEDS: DEXAMETHASONE 4 MG/ML VIAL IVP SCH (09:52)
[2022-12-06] MEDS ORDERED: ACETAMINOPHEN 1,000 MG/100 ML 1,000 MG/100 ML BAG IV PRN (11:03)
[2022-12-06] MEDS: ASPIRIN EC 325 MG TABLET PO SCH (11:53)
[2022-12-06] MEDS: SODIUM CHLORIDE 0.9% 1,000 ML IV SCH (16:19)
--- NOTE | 2022-12-06 17:50 | PROVIDER PROGRESS NOTE ---
Assessment/Plan - Problem List (1) Acute respiratory failure with hypoxia Assessment/Plan: The cause appears to be COPD exacerbation, on top of underlying ILD, and his COVID-pneumonia. He needed 2 L nasal cannula at admission which is increased to 40% per humidified high flow cannula Plan: Continue with O2 supplemental Target saturation will be 88% or above Cont treat the underlying problems, the COVID and the COPD Because of his wet sputum production, respiratory sample for Gram stain and culture will be ordered and I will start him on empiric iv antibiotics, using Zithromax (2) COVID-19 Assessment/Plan: Although he is not no localized infiltrate, he is positive for COVID which likely led to the exacerbation of his lung disease Plan: Continue with infectious isolation Continue with Decadron at 6 mg IV daily as per guidelines Cont daily iv Remdesivir; he qualified because of having hypoxia but not needing a ventilator and his diagnosis is very recent (yesterday) (3) Obtundation (R40.1) After having received morphine IV last night, he has been obtunded. He does not respond to sternal rub or his name called. He mostly slept all day. The was in the room but knew not to feed him since he was not awake. This afternoon he is still not responding to sternal rub but has spontaneous movement of arms and legs and is turning his head but eyes are closed. Plan: Decrease the dose of iv morphine prn dyspnea, and stretch out it's frequency since his respiratory status is not in as much distress His diet, which had initially been orderd Regular and then yesterday changed to Pured, will now be entirely on hold until he is more awake Will stop p.o. meds, change the necessary meds to IV form He is now considered to be in critical condition We will order a Green catheter inserted (4) COPD exacerbation Assessment/Plan: Plan: We will order DuoNebs scheduled 4 times daily and every 4 hours as needed Continue with IV steroids Cont supplemental O2, target saturations will be 88% and above (5) Interstitial lung disease Assessment/Plan: As per history. Plan: Continue with nebulized treatments, if possible from a RT standpoint, in a COVID pt, since he is too obtunded (and before that was too demented), to follow directions to use an inhaler (6) PRESLEY (acute kidney injury) Assessment/Plan: All labs were reviewed. He presented with BUN/creatinine of 26/1.3. His baseline creatinine is 1.1 The creat has improved slt to 1.2 since on iv fluids Plan: IV fluids to continue, now that he cannot eat Avoid nephrotoxins We will follow BMP daily (7) Hyperkalemia Despite an improvement in his creatinine, today's potassium sabina to 5.7. Plan: Avoid potassium-containing products Continue with IV fluids Follow BMP daily We will recheck his serum potassium in 8 to 12 hours to assure it is not even higher and then he may need enema treatment or D50 and Insulin (8) Dementia Assessment/Plan: As per history. Patient needed to be fed and needs complete [facility] care. Today the RN noted that he was coughing and sputtering when trying to swallow p.o. meds. Speech Therapy evaluation of his swallowing was ordered for today and was completed. The Speech Therapist recommend that we change his regular diet to a pured diet with thin liquid Plan: Continue supportive ([facility]) care Will use only essential medications as they have to be an IV form while obtunded - Current Meds Current Meds: Current Medications Generic Name Dose Route Start Last Admin Trade Name Freq PRN Reason Stop Dose Admin Albuterol 2.5 mg 12/04/22 23:03 12/04/22 23:16 Albuterol Neb 2.5 Mg/3 Ml INH 2.5 mg QID PRN Administration Asthma Albuterol/Ipratropium 3 ml 12/05/22 09:17 12/06/22 15:19 Ipratropium/Albuterol 3 Ml Neb INH 3 ml RTQID MARIBEL Administration Aspirin 325 mg 12/05/22 09:00 12/06/22 11:53 Aspirin Ec 325 Mg Tablet PO Not Given DAILY MARIBEL Dexamethasone 6 mg 12/06/22 09:00 12/06/22 09:52 Dexamethasone 4 Mg/Ml Vial IVP 6 mg DAILY MARIBEL Administration Donepezil HCl 10 mg 12/05/22 21:00 12/05/22 20:49 Donepezil 5 Mg Tablet PO 10 mg QPM MARIBEL Administration Enoxaparin Sodium 40 mg 12/05/22 10:00 12/06/22 09:52 Enoxaparin 40 Mg/0.4 Ml Syringe SUBQ 40 mg DAILY MARIBEL Administration Sodium Chloride 1,000 mls @ 50 mls/hr 12/04/22 23:45 12/06/22 16:19 Normal Saline 0.9% IV 50 mls/hr .Q20H MARIBEL Administration Remdesivir 100 mg/ Sodium 100 mls @ 200 mls/hr 12/06/22 09:00 12/06/22 10:50 Chloride IV 12/09/22 09:29 Infused DAILY MARIBEL Infusion Morphine Sulfate 1 mg 12/06/22 11:01 12/06/22 11:52 Morphine 2 Mg/Ml Carpuject IVP 1 mg Q4HR PRN Administration Dyspnea Scopolamine HBr 1 patch 12/05/22 17:10 12/05/22 17:41 Scopolamine Patch TOP 1 patch Q3D MARIBEL Administration Sodium Chloride 10 ml 12/05/22 01:00 12/06/22 09:53 Sodium Chloride Flush 0.9% 10 Ml Syringe IVP 10 ml 0100,0900,1700 MARIBEL Administration - Lab Result Fish Bone Diagrams: 12/06/22 05:28 12/06/22 05:28 - Additional Planning My Orders: My Active Orders 12/05/22 17:10 Scopolamine Patch [Transderm-Scop] 1 patch TOP Q3D 12/06/22 09:00 Remdesivir 100Mg Vial [Veklury] 100 mg Sodium Chloride 0.9% 100Ml [Normal Saline 0.9% 100Ml] 100 ml IV DAILY dexAMETHasone [Decadron] 6 mg IVP DAILY 12/06/22 11:01 Morphine Inj (Carpuject) [Morphine (Carpuject)] 1 mg IVP Q4HR PRN 12/06/22 11:03 Acetaminophen 1,000 mg/100 ml [Acetaminophen] 1,000 mg in 100 ml IV Q6HR 12/06/22 13:45 CUL, RESPIRATORY [RM] Stat 12/06/22 17:41 Green Insertion [RC] QSHIFT 12/06/22 17:42 Green Continuation and Care [RC] QSHIFT 12/07/22 05:00 BMP - BASIC METABOLIC PANEL [CHEM] DAILYLAB CBC - COMP BLD CT W/AUTO DIFF [HEME] DAILYLAB 12/08/22 05:00 BMP - BASIC METABOLIC PANEL [CHEM] DAILYLAB CBC - COMP BLD CT W/AUTO DIFF [HEME] DAILYLAB 12/09/22 05:00 BMP - BASIC METABOLIC PANEL [CHEM] DAILYLAB CBC - COMP BLD CT W/AUTO DIFF [HEME] DAILYLAB Subjective - Subjective Nursing Reports: Other (Lethargic, Some spontaneous movement of head and extremities but eyes are closed and he does not respond to name, sternal rub and cannot take an oral meds or food) Objective Vital Signs: Vital Signs - 24 hr 12/05/22 12/05/22 12/06/22 18:00 21:22 04:02 Temperature 36.3 C L 36.5 C 36.4 C L Heart Rate Heart Rate [ 88 74 74 Brachial] Respiratory 20 22 24 Rate Blood Pressure 159/92 H 160/91 H 168/75 H [Right Brachial artery] O2 Saturation 96 92 95 If not protocol 4 4 4 : Oxygen Flow, liters/minute 12/06/22 12/06/22 12/06/22 04:45 04:53 07:24 Temperature Heart Rate 70 Heart Rate [ 74 Brachial] Respiratory 24 18 Rate Blood Pressure [Right Brachial artery] O2 Saturation 97 If not protocol 40 40 40 : Oxygen Flow, liters/minute 12/06/22 12/06/22 12/06/22 07:31 09:48 11:35 Temperature 35.9 C L Heart Rate 74 Heart Rate [ 75 Brachial] Respiratory 26 H 16 Rate Blood Pressure 106/67 [Right Brachial artery] O2 Saturation 100 If not protocol 40 40 40 : Oxygen Flow, liters/minute 12/06/22 12/06/22 12/06/22 13:43 15:20 16:32 Temperature 36.6 C 36.8 C Heart Rate 74 Heart Rate [ 58 L 73 Brachial] Respiratory 22 16 21 Rate Blood Pressure 109/68 121/59 L [Right Brachial artery] O2 Saturation 99 97 If not protocol 40 35 40 : Oxygen Flow, liters/minute Oxygen O2 Source [Without Activity] Room air O2 Source [facility] I&O (Last 24 Hrs): Intake and Output Totals x24h 12/04/22 12/05/22 12/06/22 23:59 23:59 23:59 Intake Total 1000 2083.333 1247.5 Output Total 0 Balance 1000 2083.333 1247.5 General: Other (Obtunded. Diaphoretic.) HEENT: Other (Lids not swollen) Neck: No JVD Neuro: Other (Obtunded, some spontaneous movement of head and extremities, no withdrawal to sternal rub) Cardiovascular: Regular rate Respiratory: Rhonchi Abdomen: Other (Not distended) Extremities: No clubbing - Results Results: Laboratory Results WBC 11.2 x10^3/uL (4.8-10.8) H 12/06/22 05:28 RBC 5.07 10^6/uL (4.70-6.10) 12/06/22 05:28 Hgb 15.9 g/dL (14.0-18.0) 12/06/22 05:28 Hct 50.2 % (42.0-52.0) 12/06/22 05:28 MCV 99.0 fL (80.0-94.0) H 12/06/22 05:28 MCH 31.4 pg (27.0-31.0) H 12/06/22 05:28 MCHC 31.7 g/dL (32.0-36.0) L 12/06/22 05:28 RDW 18.6 % (12.0-15.0) H 12/06/22 05:28 Plt Count 128 10^3/uL (130-450) L 12/06/22 05:28 MPV 11.2 fL (7.4-11.4) 12/06/22 05:28 Neut # (Auto) Not Reportable 12/06/22 05:28 Lymph # (Auto) Not Reportable 12/06/22 05:28 [place] # (Auto) Not Reportable 12/06/22 05:28 Eos # (Auto) Not Reportable 12/06/22 05:28 Baso # (Auto) Not Reportable 12/06/22 05:28 Absolute Nucleated RBC Not Reportable 12/06/22 05:28 Total Counted 100 12/06/22 05:28 Band Neuts % (Manual) 58 % (0-10) H 12/06/22 05:28 Reactive Lymphs % (Man) 2 % 12/06/22 05:28 Abnorm Lymph % (Manual) 0 % 12/06/22 05:28 Metamyelocytes % 1 % (-0) H 12/06/22 05:28 Nucleated RBC % Not Reportable 12/06/22 05:28 Neutrophils # (Manual) 10.8 10^3/uL (1.5-6.6) H 12/06/22 05:28 Lymphocytes # (Manual) 0.2 10^3/uL (1.5-3.5) L 12/06/22 05:28 Monocytes # (Manual) 0.1 10^3/uL (0.0-1.0) 12/06/22 05:28 Eosinophils # (Manual) 0.0 10^3/uL (0-0.7) 12/06/22 05:28 Basophils # (Manual) 0.0 10^3/uL (0-0.1) 12/06/22 05:28 Nucleated RBCs 1 % 12/06/22 05:28 Differential Comment MANUAL DIFFERENTIAL 12/06/22 05:28 WBC Morphology 2+ VACUOLATION (NORMAL) 12/06/22 05:28 RBC Morph Micro Appear 1+ HYPOCHROMASIA (NORMAL) 12/06/22 05:28 Sodium 147 mmol/L (135-145) H 12/06/22 05:28 Potassium 5.7 mmol/L (3.5-5.0) H 12/06/22 05:28 Chloride 116 mmol/L (101-111) H 12/06/22 05:28 Carbon Dioxide 25 mmol/L (21-32) 12/06/22 05:28 Anion Gap 6.0 (6-13) 12/06/22 05:28 BUN 28 mg/dL (6-20) H 12/06/22 05:28 Creatinine 1.1 mg/dL (0.6-1.2) 12/06/22 05:28 Estimated GFR (MDRD) 65 (>89) L 12/06/22 05:28 Glucose 71 mg/dL (70-100) 12/06/22 05:28 Calcium 9.2 mg/dL (8.5-10.3) 12/06/22 05:28 Phosphorus 3.8 mg/dL (2.5-4.6) 12/06/22 05:28 Magnesium 2.0 mg/dL (1.7-2.8) 12/06/22 05:28 Total Bilirubin 0.4 mg/dL (0.2-1.0) 12/04/22 19:53 AST 31 IU/L (10-42) 12/04/22 19:53 ALT 48 IU/L (10-60) 12/04/22 19:53 Alkaline Phosphatase 99 IU/L (42-121) 12/04/22 19:53 Total Protein 7.8 g/dL (6.7-8.2) 12/04/22 19:53 Albumin 4.0 g/dL (3.2-5.5) 12/04/22 19:53 Globulin 3.8 g/dL (2.1-4.2) 12/04/22 19:53 Albumin/Globulin Ratio 1.1 (1.0-2.2) 12/04/22 19:53 Lipase 30 U/L (22-51) 12/04/22 19:53 Nasal Adenovirus (PCR) NOT DETECTED 12/04/22 19:10 Nasal B. parapertussis DNA (PCR) NOT DETECTED 12/04/22 19:10 Nasal Coronavir 229E PCR NOT DETECTED 12/04/22 19:10 Nasal Coronavir HKU1 PCR NOT DETECTED 12/04/22 19:10 Nasal Coronavir NL63 PCR NOT DETECTED 12/04/22 19:10 Nasal Coronavir OC43 PCR NOT DETECTED 12/04/22 19:10 Nasal Enterovir/Rhinovir PCR NOT DETECTED 12/04/22 19:10 Nasal Influenza B PCR NOT DETECTED 12/04/22 19:10 Nasal Influenza A PCR NOT DETECTED 12/04/22 19:10 Nasal Parainfluen 1 PCR NOT DETECTED 12/04/22 19:10 Nasal Parainfluen 2 PCR NOT DETECTED 12/04/22 19:10 Nasal Parainfluen 3 PCR NOT DETECTED 12/04/22 19:10 Nasal Parainfluen 4 PCR NOT DETECTED 12/04/22 19:10 Nasal RSV (PCR) NOT DETECTED 12/04/22 19:10 Nasal B.pertussis DNA PCR NOT DETECTED 12/04/22 19:10 Nasal C.pneumoniae (PCR) NOT DETECTED 12/04/22 19:10 Simon Human Metapneumo PCR NOT DETECTED 12/04/22 19:10 Nasal M.pneumoniae (PCR) NOT DETECTED 12/04/22 19:10 Nasal SARS-CoV-2 (PCR) DETECTED A 12/04/22 19:10 - Procedures Procedures: Procedures EXCISION OF SIGMOID COLON, ENDO, DIAGN (12/16/15) HIP BEARING SURFACE, [id number] (03/08/14) PACKED CELL TRANSFUSION (03/08/14) TOTAL HIP REPLACEMENT (03/08/14) Sepsis Event Note (H) - Evaluation Current Stage of Sepsis: Ruled out
[2022-12-06 18:24] LABS: MAGNESIUM 2.1 mg/dL (1.7-2.8); POTASSIUM 5.2 mmol/L (3.5-5.0)
[2022-12-06] MEDS: DONEPEZIL 5 MG TABLET PO SCH (23:21)
[2022-12-07] MEDS: SODIUM CHLORIDE FLUSH 0.9% 10 ML SYRINGE IVP SCH ×3 (01:11→16:47)
[2022-12-07] MEDS: MORPHINE 2 MG/ML CARPUJECT IVP PRN (04:37)
[2022-12-07 05:04] LABS: BASOPHILS # (AUTO) 0.1 10^3/uL (0.0-0.1); BASOPHILS % (AUTO) 0.4 %; HCT - HEMATOCRIT 43.9 % (42.0-52.0); HGB - HEMOGLOBIN 13.8 g/dL (14.0-18.0); LYMPHOCYTES # (AUTO) 0.8 10^3/uL (1.5-3.5); LYMPHOCYTES % (AUTO) 5.8 %; MEAN CORPUSCULAR HEMOGLOBIN 30.8 pg (27.0-31.0); MEAN CORPUSCULAR HGB CONC 31.4 g/dL (32.0-36.0); MONOCYTES # (AUTO) 0.8 10^3/uL (0.0-1.0); MONOCYTES % (AUTO) 6.1 %; NEUTROPHILS # (AUTO) 11.5 10^3/uL (1.5-6.6); NEUTROPHILS % (AUTO) 87.3 %; PLT - PLATELET COUNT 144 10^3/uL (130-450); RED BLOOD COUNT 4.48 10^6/uL (4.70-6.10); RED CELL DISTRIBUTION WIDTH 18.4 % (12.0-15.0); WHITE BLOOD COUNT 13.2 x10^3/uL (4.8-10.8)
[2022-12-07 05:14] LABS: CALCIUM 9.1 mg/dL (8.5-10.3); CREATININE 1.3 mg/dL (0.6-1.2); POTASSIUM 5.1 mmol/L (3.5-5.0)
[2022-12-07] MEDS: IPRATROPIUM/ALBUTEROL 3 ML NEB INH SCH ×5 (07:21→19:36)
[2022-12-07] MEDS: DEXAMETHASONE 4 MG/ML VIAL IVP SCH (08:53)
[2022-12-07] MEDS: REMDESIVIR 100MG VIAL 100 MG in SODIUM CHLORIDE 0.9% 100ML 100 ML IV SCH (08:54)
[2022-12-07] MEDS: ENOXAPARIN 40 MG/0.4 ML SYRINGE SUBQ SCH (08:54)
[2022-12-07] MEDS: ASPIRIN EC 325 MG TABLET PO SCH (09:00)
[2022-12-07] MEDS ORDERED: DEXAMETHASONE 4 MG/ML VIAL IVP SCH (09:00)
--- NOTE | 2022-12-07 09:18 | PROVIDER PROGRESS NOTE ---
Assessment/Plan - Problem List (1) Acute respiratory failure with hypoxia Assessment/Plan: The cause appears to be COPD exacerbation, on top of underlying ILD, and his COVID-pneumonia. He needed 2 L nasal cannula at admission which is increased to 40% per humidified high flow cannula. Because of his wet sputum production, respiratory sample for Gram stain and culture was sent off and I started him on empiric iv antibiotics, using Zithromax. Today tghe sputm cx prelim is growing GPC Plan: Continue with O2 supplemental Target saturation will be 88% or above Cont treat the underlying problems, the COVID and the COPD Cont empiric iv Zithromax (2) COVID-19 Assessment/Plan: He has patchy lung changes which could be his ILD but he is positive for COVID (which likely led to the exacerbation of that lung disease) Plan: Continue with infectious isolation Continue with Decadron at 6 mg IV daily as per guidelines Cont daily iv Remdesivir; he qualified because of having hypoxia but not needing a ventilator and his diagnosis is very recent (3) Obtundation (R40.1) After having received morphine x1 for severe dyspnea 2 days ago, he has been obtunded. He does not respond to sternal rub or his name called. He mostly sleeps all day. He has spontaneous movement of arms and legs and is turning his head but eyes are closed. I decrease the dose of iv morphine prn dyspnea, and stretched out it's frequency since his respiratory status is not in as much distress the last 2 days. His diet, which had initially been orderd Regular and then changed to pured, has been cancelled. I stopped p.o. meds, changed the necessary meds to IV form, and pr ASA He is now considered to be in critical condition A Green catheter was ordered. The was in his room for 7 hours, held his hand, tried to get him to awaken and he did not. I updated the and spoke to her today (by phone after she left). This is a bad sign that he is not waking up. Plan: I recommend we give him 1 more day to see if there is some improvement in mental status and then the does agree she will consider comfort care (4) COPD exacerbation Assessment/Plan: Plan: Cont DuoNebs scheduled 4 times daily and every 4 hours as needed, if RT can admisnister Continue with IV steroids Cont supplemental O2, target saturations will be 88% and above (5) Interstitial lung disease Assessment/Plan: As per history. Plan: Continue with nebulized treatments, if possible from a RT standpoint, in a COVID pt, since he is too obtunded (and before that was too demented), to follow directions to use an inhaler (6) Hypernatremia All labs were reviewed. His Sodium has risen to 146. This is from being on peripheral IV NS at 50 cc an hour and getting his various IV meds like remdesivir in normal saline, while taking no free water and no liquids orally for 48 hours Plan: We will stop his IV NS We will put him on IV D5W Follow BMP daily (7) PRESLEY (acute kidney injury) Assessment/Plan: All labs were reviewed. He presented with BUN/creatinine of 26/1.3. His baseline creatinine is 1.1 The creat was improving slt to 1.1 on iv fluids, but today creat sabina to 1.3 Plan: IV fluids to continue, now that he cannot eat. Will change NS to D5W. Avoid nephrotoxins We will follow BMP daily (8) Hyperkalemia Despite an improvement in his creatinine, yesterday 12/06/22, his potassium sabina to 5.7 and today is 5.1 Plan: Avoid potassium-containing products Continue with IV fluids Follow BMP daily (9) Dementia Assessment/Plan: As per history. Patient needed to be fed and needs complete [facility] care. Speech Therapy evaluatied his swallowing 2 days ago, before he was obtunded and advised a pured diet with thin liquids. His diet has been cancelled. Plan: Continue supportive (fci) care Will use only essential medications as they have to be an IV form while obtunde d. Will ask ST to not plan to re-see him Today I recommended to his we give him 1 more day (72 hours) to see if there is some improvement in mental status, and then the does agree she will consider comfort care - Current Meds Current Meds: Current Medications Generic Name Dose Route Start Last Admin Trade Name Freq PRN Reason Stop Dose Admin Albuterol 2.5 mg 12/04/22 23:03 12/04/22 23:16 Albuterol Neb 2.5 Mg/3 Ml INH 2.5 mg QID PRN Administration Asthma Albuterol/Ipratropium 3 ml 12/05/22 09:17 12/07/22 07:21 Ipratropium/Albuterol 3 Ml Neb INH 3 ml RTQID MARIBEL Administration Aspirin 325 mg 12/05/22 09:00 12/07/22 09:00 Aspirin Ec 325 Mg Tablet PO 325 mg DAILY MARIBEL Administration Dexamethasone 6 mg 12/06/22 09:00 12/07/22 08:53 Dexamethasone 4 Mg/Ml Vial IVP 6 mg DAILY MARIBEL Administration Donepezil HCl 10 mg 12/05/22 21:00 12/06/22 23:21 Donepezil 5 Mg Tablet PO Not Given QPM MARIBEL Enoxaparin Sodium 40 mg 12/05/22 10:00 12/07/22 08:54 Enoxaparin 40 Mg/0.4 Ml Syringe SUBQ 40 mg DAILY MARIBEL Administration Remdesivir 100 mg/ Sodium 100 mls @ 200 mls/hr 12/06/22 09:00 12/07/22 08:54 Chloride IV 12/09/22 09:29 200 mls/hr DAILY MARIBEL Administration Morphine Sulfate 1 mg 12/06/22 11:01 12/07/22 04:37 Morphine 2 Mg/Ml Carpuject IVP 1 mg Q4HR PRN Administration Dyspnea Scopolamine HBr 1 patch 12/05/22 17:10 12/05/22 17:41 Scopolamine Patch TOP 1 patch Q3D MARIBEL Administration Sodium Chloride 10 ml 12/05/22 01:00 12/07/22 08:58 Sodium Chloride Flush 0.9% 10 Ml Syringe IVP Not Given 0100,0900,1700 MARIBEL - Lab Result Fish Bone Diagrams: 12/07/22 04:43 12/07/22 04:43 - Additional Planning My Orders: My Active Orders 12/06/22 09:00 Remdesivir 100Mg Vial [Veklury] 100 mg Sodium Chloride 0.9% 100Ml [Normal Saline 0.9% 100Ml] 100 ml IV DAILY dexAMETHasone [Decadron] 6 mg IVP DAILY 12/06/22 11:01 Morphine Inj (Carpuject) [Morphine (Carpuject)] 1 mg IVP Q4HR PRN 12/06/22 11:03 Acetaminophen 1,000 mg/100 ml [Acetaminophen] 1,000 mg in 100 ml IV Q6HR 12/06/22 13:45 CUL, RESPIRATORY [RM] Stat 12/06/22 17:41 Green Insertion [RC] QSHIFT 12/07/22 10:00 Dextrose 5% [D5w] 1,000 ml IV 50 mls/hr 12/08/22 05:00 BMP - BASIC METABOLIC PANEL [CHEM] DAILYLAB CBC - COMP BLD CT W/AUTO DIFF [HEME] DAILYLAB 12/09/22 05:00 BMP - BASIC METABOLIC PANEL [CHEM] DAILYLAB CBC - COMP BLD CT W/AUTO DIFF [HEME] DAILYLAB Subjective - Subjective Nursing Reports: Other (Obtunded, no response to sternal rub, but did withdraw to iv stick in arm) Objective Vital Signs: Vital Signs - 24 hr 12/06/22 12/06/22 12/06/22 09:48 11:35 13:43 Temperature 35.9 C L 36.6 C Heart Rate 74 Heart Rate [ 75 58 L Brachial] Respiratory 26 H 16 22 Rate Blood Pressure [Left Brachial artery] Blood Pressure 106/67 109/68 [Right Brachial artery] O2 Saturation 100 99 If not protocol 40 40 40 : Oxygen Flow, liters/minute 12/06/22 12/06/22 12/06/22 15:20 16:32 21:19 Temperature 36.8 C 36.7 C Heart Rate 74 Heart Rate [ 73 73 Brachial] Respiratory 16 21 24 Rate Blood Pressure 138/74 H [Left Brachial artery] Blood Pressure 121/59 L [Right Brachial artery] O2 Saturation 97 98 If not protocol 35 40 40 : Oxygen Flow, liters/minute 12/06/22 12/07/22 12/07/22 22:00 01:11 04:45 Temperature 36.4 C L 36.5 C Heart Rate Heart Rate [ 56 L 58 L Brachial] Respiratory 24 26 H Rate Blood Pressure [Left Brachial artery] Blood Pressure 164/74 H 139/99 H [Right Brachial artery] O2 Saturation 98 98 If not protocol 40 40 40 : Oxygen Flow, liters/minute 12/07/22 12/07/22 07:23 08:29 Temperature 37.3 C Heart Rate 56 L Heart Rate [ 57 L Brachial] Respiratory 26 H 24 Rate Blood Pressure 136/67 H [Left Brachial artery] Blood Pressure [Right Brachial artery] O2 Saturation 95 If not protocol 40 40 : Oxygen Flow, liters/minute Oxygen O2 Source [Without Activity] Room air O2 Source [facility] I&O (Last 24 Hrs): Intake and Output Totals x24h 12/05/22 12/06/22 12/07/22 23:59 23:59 23:59 Intake Total 3.333 1247.5 0 Output Total 0 600 250 Balance 2082.333 647.5 -250 General: Other (Comatose) HEENT: Other (On O2 via HHF) Neck: No JVD Neuro: Other (Comatose, but rare spont mvms) Cardiovascular: Regular rate Respiratory: No respiratory distress (whiile on suppl O2) Genitourinary: Other (Has a Green) Extremities: No clubbing, No edema - Results Results: Laboratory Results WBC 13.2 x10^3/uL (4.8-10.8) H 12/07/22 04:43 RBC 4.48 10^6/uL (4.70-6.10) L 12/07/22 04:43 Hgb 13.8 g/dL (14.0-18.0) L 12/07/22 04:43 Hct 43.9 % (42.0-52.0) 12/07/22 04:43 MCV 98.0 fL (80.0-94.0) H 12/07/22 04:43 MCH 30.8 pg (27.0-31.0) 12/07/22 04:43 MCHC 31.4 g/dL (32.0-36.0) L 12/07/22 04:43 RDW 18.4 % (12.0-15.0) H 12/07/22 04:43 Plt Count 144 10^3/uL (130-450) 12/07/22 04:43 MPV 11.0 fL (7.4-11.4) 12/07/22 04:43 Neut # (Auto) 11.5 10^3/uL (1.5-6.6) H 12/07/22 04:43 Lymph # (Auto) 0.8 10^3/uL (1.5-3.5) L 12/07/22 04:43 [place] # (Auto) 0.8 10^3/uL (0.0-1.0) 12/07/22 04:43 Eos # (Auto) 0.0 10^3/uL (0.0-0.7) 12/07/22 04:43 Baso # (Auto) 0.1 10^3/uL (0.0-0.1) 12/07/22 04:43 Absolute Nucleated RBC 0.00 x10^3/uL 12/07/22 04:43 Total Counted 100 12/06/22 05:28 Band Neuts % (Manual) 58 % (0-10) H 12/06/22 05:28 Reactive Lymphs % (Man) 2 % 12/06/22 05:28 Abnorm Lymph % (Manual) 0 % 12/06/22 05:28 Metamyelocytes % 1 % (-0) H 12/06/22 05:28 Nucleated RBC % 0.0 /100WBC 12/07/22 04:43 Neutrophils # (Manual) 10.8 10^3/uL (1.5-6.6) H 12/06/22 05:28 Lymphocytes # (Manual) 0.2 10^3/uL (1.5-3.5) L 12/06/22 05:28 Monocytes # (Manual) 0.1 10^3/uL (0.0-1.0) 12/06/22 05:28 Eosinophils # (Manual) 0.0 10^3/uL (0-0.7) 12/06/22 05:28 Basophils # (Manual) 0.0 10^3/uL (0-0.1) 12/06/22 05:28 Nucleated RBCs 1 % 12/06/22 05:28 Differential Comment MANUAL DIFFERENTIAL 12/06/22 05:28 WBC Morphology 2+ VACUOLATION (NORMAL) 12/06/22 05:28 RBC Morph Micro Appear 1+ HYPOCHROMASIA (NORMAL) 12/06/22 05:28 Sodium 149 mmol/L (135-145) H 12/07/22 04:43 Potassium 5.1 mmol/L (3.5-5.0) H 12/07/22 04:43 Chloride 118 mmol/L (101-111) H 12/07/22 04:43 Carbon Dioxide 24 mmol/L (21-32) 12/07/22 04:43 Anion Gap 7.0 (6-13) 12/07/22 04:43 BUN 41 mg/dL (6-20) H 12/07/22 04:43 Creatinine 1.3 mg/dL (0.6-1.2) H 12/07/22 04:43 Estimated GFR (MDRD) 54 (>89) L 12/07/22 04:43 Glucose 93 mg/dL (70-100) 12/07/22 04:43 Calcium 9.1 mg/dL (8.5-10.3) 12/07/22 04:43 Phosphorus 3.8 mg/dL (2.5-4.6) 12/06/22 05:28 Magnesium 2.1 mg/dL (1.7-2.8) 12/06/22 18:10 Total Bilirubin 0.4 mg/dL (0.2-1.0) 12/04/22 19:53 AST 31 IU/L (10-42) 12/04/22 19:53 ALT 48 IU/L (10-60) 12/04/22 19:53 Alkaline Phosphatase 99 IU/L (42-121) 12/04/22 19:53 Total Protein 7.8 g/dL (6.7-8.2) 12/04/22 19:53 Albumin 4.0 g/dL (3.2-5.5) 12/04/22 19:53 Globulin 3.8 g/dL (2.1-4.2) 12/04/22 19:53 Albumin/Globulin Ratio 1.1 (1.0-2.2) 12/04/22 19:53 Lipase 30 U/L (22-51) 12/04/22 19:53 Nasal Adenovirus (PCR) NOT DETECTED 12/04/22 19:10 Nasal B. parapertussis DNA (PCR) NOT DETECTED 12/04/22 19:10 Nasal Coronavir 229E PCR NOT DETECTED 12/04/22 19:10 Nasal Coronavir HKU1 PCR NOT DETECTED 12/04/22 19:10 Nasal Coronavir NL63 PCR NOT DETECTED 12/04/22 19:10 Nasal Coronavir OC43 PCR NOT DETECTED 12/04/22 19:10 Nasal Enterovir/Rhinovir PCR NOT DETECTED 12/04/22 19:10 Nasal Influenza B PCR NOT DETECTED 12/04/22 19:10 Nasal Influenza A PCR NOT DETECTED 12/04/22 19:10 Nasal Parainfluen 1 PCR NOT DETECTED 12/04/22 19:10 Nasal Parainfluen 2 PCR NOT DETECTED 12/04/22 19:10 Nasal Parainfluen 3 PCR NOT DETECTED 12/04/22 19:10 Nasal Parainfluen 4 PCR NOT DETECTED 12/04/22 19:10 Nasal RSV (PCR) NOT DETECTED 12/04/22 19:10 Nasal B.pertussis DNA PCR NOT DETECTED 12/04/22 19:10 Nasal C.pneumoniae (PCR) NOT DETECTED 12/04/22 19:10 Simon Human Metapneumo PCR NOT DETECTED 12/04/22 19:10 Nasal M.pneumoniae (PCR) NOT DETECTED 12/04/22 19:10 Nasal SARS-CoV-2 (PCR) DETECTED A 12/04/22 19:10 - Procedures Procedures: Procedures EXCISION OF SIGMOID COLON, ENDO, DIAGN (12/16/15) HIP BEARING SURFACE, [id number] (03/08/14) PACKED CELL TRANSFUSION (03/08/14) TOTAL HIP REPLACEMENT (03/08/14) Sepsis Event Note (H) - Evaluation Current Stage of Sepsis: Ruled out
[2022-12-07] MEDS: DEXTROSE 5% 1,000 ML IV SCH (11:56)
[2022-12-07] MEDS: ASPIRIN 300 MG SUPP PR SCH (13:46)
[2022-12-08] MEDS: SODIUM CHLORIDE FLUSH 0.9% 10 ML SYRINGE IVP SCH ×3 (00:37→16:28)
[2022-12-08 05:06] LABS: BASOPHILS % (AUTO) 0.2 %; HCT - HEMATOCRIT 45.1 % (42.0-52.0); HGB - HEMOGLOBIN 13.9 g/dL (14.0-18.0); LYMPHOCYTES # (AUTO) 0.6 10^3/uL (1.5-3.5); LYMPHOCYTES % (AUTO) 7.2 %; MEAN CORPUSCULAR HEMOGLOBIN 30.3 pg (27.0-31.0); MEAN CORPUSCULAR HGB CONC 30.8 g/dL (32.0-36.0); MEAN CORPUSCULAR VOLUME 98.3 fL (80.0-94.0); MEAN PLATELET VOLUME 11.6 fL (7.4-11.4); MONOCYTES # (AUTO) 0.6 10^3/uL (0.0-1.0); MONOCYTES % (AUTO) 7.3 %; NEUTROPHILS # (AUTO) 6.9 10^3/uL (1.5-6.6); NEUTROPHILS % (AUTO) 84.7 %; NRBC ABSOLUTE COUNT (AUTO) 0.02 x10^3/uL; NUCLEATED RED BLOOD CELLS AUTO 0.2 /100WBC; PLT - PLATELET COUNT 163 10^3/uL (130-450); RED BLOOD COUNT 4.59 10^6/uL (4.70-6.10); RED CELL DISTRIBUTION WIDTH 18.3 % (12.0-15.0); WHITE BLOOD COUNT 8.2 x10^3/uL (4.8-10.8)
[2022-12-08 05:18] LABS: CALCIUM 9.1 mg/dL (8.5-10.3); CREATININE 1.3 mg/dL (0.6-1.2); POTASSIUM 4.6 mmol/L (3.5-5.0)
[2022-12-08] MEDS: IPRATROPIUM/ALBUTEROL 3 ML NEB INH SCH ×4 (06:10→18:54)
[2022-12-08] MEDS: DEXTROSE 5% 1,000 ML IV SCH (07:58)
[2022-12-08] MEDS: ENOXAPARIN 40 MG/0.4 ML SYRINGE SUBQ SCH (07:59)
[2022-12-08] MEDS: ASPIRIN 300 MG SUPP PR SCH (07:59)
[2022-12-08] MEDS: DEXAMETHASONE 4 MG/ML VIAL IVP SCH (07:59)
[2022-12-08] MEDS: REMDESIVIR 100MG VIAL 100 MG in SODIUM CHLORIDE 0.9% 100ML 100 ML IV SCH (08:31)
[2022-12-08] MEDS: SCOPOLAMINE PATCH TOP SCH (18:35)
--- NOTE | 2022-12-08 20:49 | PROVIDER PROGRESS NOTE ---
Assessment/Plan - Problem List (1) Acute respiratory failure with hypoxia Assessment/Plan: The cause appears to be COPD exacerbation, on top of underlying ILD, and his COVID-pneumonia. He needed 2 L nasal cannula at admission which is increased to 40% per humidified high flow cannula. Because of his wet sputum production, respiratory sample for Gram stain and culture was sent off and I started him on empiric iv antibiotics, using Zithromax. The sputm cx prelim is growing GPC We have been treating the underlying problems, the COVID and the COPD and empiric iv Zithromax Plan: Continue with O2 supplemental Target saturation will be 88% or above (2) COVID-19 Assessment/Plan: He has patchy lung changes which could be his ILD but he is positive for COVID (which likely led to the exacerbation of that lung disease). Has been getting IV Decadron daily and IV remdesivir per protocol Plan: Continue with infectious isolation (3) Obtundation (R40.1) After having received morphine x1 for severe dyspnea 2 days ago, he has been obtunded. He does not respond to sternal rub or his name called. He mostly sleeps all day. He had spontaneous movement of arms and legs until yesterday, now eyes are closed and he does not withdraw to pain. He has recvd no more iv Morphine since his respiratory status shows now distress the last 2 days, on O2 suppl w. n.c. A Green catheter was ordered. His diet has been cancelled. He gets gentle iv fluids. I stopped p.o. meds, changed the necessary meds to IV form, and pr ASA He is now considered to be in critical condition The visits him daily holds his hand, he has not awoken, except poss 1 min t faby I updated the and spoke to her today at bedside and then by phone after she left. This is grim that he is not waking up and became oliguric today Plan: All the children and the are in the room with him, they are considering comfort care to be started (4) Oliguria As per I's and O's measured with a Green in place. Since he has not been able to swallow, he has been getting IV hydration (5) COPD exacerbation Assessment/Plan: I ordered DuoNebs scheduled 4 times daily and every 4 hours as needed, if RT can administer, since with his obtundation, he cannot use an inhaler He has been on IV steroids Plan: Cont supplemental O2, target saturations will be 88% and above (6) Interstitial lung disease Assessment/Plan: As per history. He has been getting nebulized treatments, since he is too obtunded (and before that was too demented), to follow directions to use an inhaler (7) Hypernatremia All labs were reviewed. His Sodium has been 145-147. This is from being on peripheral IV NS at 50 cc an hour and getting his various IV meds like remdesivir in normal saline, while taking no free water and no liquids orally for 72 hours On 12/07, I stopped his IV NS, started him on IV D5W (8) PRESLEY (acute kidney injury) Assessment/Plan: All labs were reviewed. He presented with BUN/creatinine of 26/1.3. His baselin e creatinine is 1.1 The creat was improving slt to 1.1 on iv fluids, but then creat remained 1.3, despite iv hydration. (9) Hyperkalemia Potassium sabina to 5.7>> 5.1 >> is 4.6, after iv D5W started. We have been avoiding potassium-containing products and giving IV fluids (10) Dementia Assessment/Plan: As per history. Patient needed to be fed and needs complete halfway care. Speech Therapy evaluatied his swallowing several days ago, before he was obtunded and advised a pured diet with thin liquids. His diet has been cancelled. I ordered only essential medications as they have to be an IV form while obtunded but cancelled ST. (11) Comfort measures only status Yesterday 12/08 I spoke to the that he has made no improvement, in fact has had worsening in his neurologic status and oliguria Today 12/09 the daughter and son arrived before noon and I spoke to everybody in a meeting room, including the and a [id number], about his condition. They all agreed that they want to stop his suffering, he appears to be mouthing the words "help". But is mostly asleep or comatiose Plan: We will stop all medications for hydration and infection. Stop lab draws. Will stop telemetry and do vital signs prn. We will order Comfort Care package I suspect the patient will decline rapidly, I told the family in the next 24 to 48 hours he may pass away - Current Meds Current Meds: Current Medications Generic Name Dose Route Start Last Admin Trade Name Freq PRN Reason Stop Dose Admin Albuterol 2.5 mg 12/04/22 23:03 12/04/22 23:16 Albuterol Neb 2.5 Mg/3 Ml INH 2.5 mg QID PRN Administration Asthma Albuterol/Ipratropium 3 ml 12/05/22 09:17 12/08/22 18:54 Ipratropium/Albuterol 3 Ml Neb INH 3 ml RTQID MARIBEL Administration Aspirin 300 mg 12/07/22 13:00 12/08/22 07:59 Aspirin 300 Mg Supp IA 300 mg DAILY MARIBEL Administration Dexamethasone 6 mg 12/06/22 09:00 12/08/22 07:59 Dexamethasone 4 Mg/Ml Vial IVP 6 mg DAILY MARIBEL Administration Enoxaparin Sodium 40 mg 12/05/22 10:00 12/08/22 07:59 Enoxaparin 40 Mg/0.4 Ml Syringe SUBQ 40 mg DAILY MARIBEL Administration Remdesivir 100 mg/ Sodium 100 mls @ 200 mls/hr 12/06/22 09:00 12/08/22 18:10 Chloride IV 12/09/22 09:29 Infused DAILY MARIBEL Infusion Dextrose 1,000 mls @ 50 mls/hr 12/07/22 10:00 12/08/22 07:58 D5w IV 50 mls/hr .Q20H MARIBEL Administration Morphine Sulfate 1 mg 12/06/22 11:01 12/07/22 04:37 Morphine 2 Mg/Ml Carpuject IVP 1 mg Q4HR PRN Administration Dyspnea Scopolamine HBr 1 patch 12/05/22 17:10 12/08/22 18:35 Scopolamine Patch TOP 1 patch Q3D MARIBEL Administration Sodium Chloride 10 ml 12/05/22 01:00 12/08/22 16:28 Sodium Chloride Flush 0.9% 10 Ml Syringe IVP Not Given 0100,0900,1700 MARIBEL - Lab Result Fish Bone Diagrams: 12/09/22 05:29 12/09/22 05:29 - Additional Planning My Orders: My Active Orders 12/09/22 05:00 BMP - BASIC METABOLIC PANEL [CHEM] DAILYLAB CBC - COMP BLD CT W/AUTO DIFF [HEME] DAILYLAB Subjective - Subjective Nursing Reports: Other (Not withdrawing to pain) Objective Vital Signs: Vital Signs - 24 hr 12/08/22 12/08/22 12/08/22 00:33 04:46 06:10 Temperature 37.4 C 36.8 C Heart Rate 56 L Heart Rate [ 58 L 53 L Brachial] Respiratory 24 26 H 20 Rate Blood Pressure 164/92 H [Left Brachial artery] Blood Pressure 174/76 H [Left Radial artery] O2 Saturation 97 95 If not protocol 25 25 25 : Oxygen Flow, liters/minute 12/08/22 12/08/22 12/08/22 06:48 07:07 08:07 Temperature 36.6 C Heart Rate Heart Rate [ 50 L Brachial] Respiratory 24 22 Rate Blood Pressure [Left Brachial artery] Blood Pressure 166/81 H [Left Radial artery] O2 Saturation 95 94 If not protocol 10 4 : Oxygen Flow, liters/minute 12/08/22 12/08/22 12/08/22 09:56 12:01 18:00 Temperature 36.5 C 36.8 C Heart Rate 55 L Heart Rate [ 51 L 52 L Brachial] Respiratory 22 26 H 24 Rate Blood Pressure [Left Brachial artery] Blood Pressure 184/83 H 183/84 H [Left Radial artery] O2 Saturation 90 L 94 If not protocol 6 : Oxygen Flow, liters/minute 12/08/22 18:55 Temperature Heart Rate 55 L Heart Rate [ Brachial] Respiratory 22 Rate Blood Pressure [Left Brachial artery] Blood Pressure [Left Radial artery] O2 Saturation If not protocol 2 : Oxygen Flow, liters/minute Oxygen O2 Source [Without Activity] Room air O2 Source Nasal cannula I&O (Last 24 Hrs): Intake and Output Totals x24h 12/06/22 12/07/22 12/08/22 23:59 23:59 23:59 Intake Total 1247.5 5704.132 7941 Output Total 600 1350 1425 Balance 647.5 -268.333 -325 General: Other (Comatose) HEENT: Mucous membr. moist/pink, Other (wearing O2 n.c.) Neuro: Other (Comatose, no response to sternal rub) Cardiovascular: Regular rate Respiratory: No respiratory distress (when on O2 n.c.) Abdomen: Soft Extremities: No edema - Results Results: Laboratory Results WBC 8.2 x10^3/uL (4.8-10.8) 12/08/22 04:44 RBC 4.59 10^6/uL (4.70-6.10) L 12/08/22 04:44 Hgb 13.9 g/dL (14.0-18.0) L 12/08/22 04:44 Hct 45.1 % (42.0-52.0) 12/08/22 04:44 MCV 98.3 fL (80.0-94.0) H 12/08/22 04:44 MCH 30.3 pg (27.0-31.0) 12/08/22 04:44 MCHC 30.8 g/dL (32.0-36.0) L 12/08/22 04:44 RDW 18.3 % (12.0-15.0) H 12/08/22 04:44 Plt Count 163 10^3/uL (130-450) 12/08/22 04:44 MPV 11.6 fL (7.4-11.4) H 12/08/22 04:44 Neut # (Auto) 6.9 10^3/uL (1.5-6.6) H 12/08/22 04:44 Lymph # (Auto) 0.6 10^3/uL (1.5-3.5) L 12/08/22 04:44 [place] # (Auto) 0.6 10^3/uL (0.0-1.0) 12/08/22 04:44 Eos # (Auto) 0.0 10^3/uL (0.0-0.7) 12/08/22 04:44 Baso # (Auto) 0.0 10^3/uL (0.0-0.1) 12/08/22 04:44 Absolute Nucleated RBC 0.02 x10^3/uL 12/08/22 04:44 Total Counted 100 12/06/22 05:28 Band Neuts % (Manual) 58 % (0-10) H 12/06/22 05:28 Reactive Lymphs % (Man) 2 % 12/06/22 05:28 Abnorm Lymph % (Manual) 0 % 12/06/22 05:28 Metamyelocytes % 1 % (-0) H 12/06/22 05:28 Nucleated RBC % 0.2 /100WBC 12/08/22 04:44 Neutrophils # (Manual) 10.8 10^3/uL (1.5-6.6) H 12/06/22 05:28 Lymphocytes # (Manual) 0.2 10^3/uL (1.5-3.5) L 12/06/22 05:28 Monocytes # (Manual) 0.1 10^3/uL (0.0-1.0) 12/06/22 05:28 Eosinophils # (Manual) 0.0 10^3/uL (0-0.7) 12/06/22 05:28 Basophils # (Manual) 0.0 10^3/uL (0-0.1) 12/06/22 05:28 Nucleated RBCs 1 % 12/06/22 05:28 Differential Comment MANUAL DIFFERENTIAL 12/06/22 05:28 WBC Morphology 2+ VACUOLATION (NORMAL) 12/06/22 05:28 RBC Morph Micro Appear 1+ HYPOCHROMASIA (NORMAL) 12/06/22 05:28 Sodium 147 mmol/L (135-145) H 12/08/22 04:44 Potassium 4.6 mmol/L (3.5-5.0) 12/08/22 04:44 Chloride 115 mmol/L (101-111) H 12/08/22 04:44 Carbon Dioxide 25 mmol/L (21-32) 12/08/22 04:44 Anion Gap 7.0 (6-13) 12/08/22 04:44 BUN 43 mg/dL (6-20) H 12/08/22 04:44 Creatinine 1.3 mg/dL (0.6-1.2) H 12/08/22 04:44 Estimated GFR (MDRD) 54 (>89) L 12/08/22 04:44 Glucose 135 mg/dL (70-100) H 12/08/22 04:44 Calcium 9.1 mg/dL (8.5-10.3) 12/08/22 04:44 Phosphorus 3.8 mg/dL (2.5-4.6) 12/06/22 05:28 Magnesium 2.1 mg/dL (1.7-2.8) 12/06/22 18:10 Total Bilirubin 0.4 mg/dL (0.2-1.0) 12/04/22 19:53 AST 31 IU/L (10-42) 12/04/22 19:53 ALT 48 IU/L (10-60) 12/04/22 19:53 Alkaline Phosphatase 99 IU/L (42-121) 12/04/22 19:53 Total Protein 7.8 g/dL (6.7-8.2) 12/04/22 19:53 Albumin 4.0 g/dL (3.2-5.5) 12/04/22 19:53 Globulin 3.8 g/dL (2.1-4.2) 12/04/22 19:53 Albumin/Globulin Ratio 1.1 (1.0-2.2) 12/04/22 19:53 Lipase 30 U/L (22-51) 12/04/22 19:53 Nasal Adenovirus (PCR) NOT DETECTED 12/04/22 19:10 Nasal B. parapertussis DNA (PCR) NOT DETECTED 12/04/22 19:10 Nasal Coronavir 229E PCR NOT DETECTED 12/04/22 19:10 Nasal Coronavir HKU1 PCR NOT DETECTED 12/04/22 19:10 Nasal Coronavir NL63 PCR NOT DETECTED 12/04/22 19:10 Nasal Coronavir OC43 PCR NOT DETECTED 12/04/22 19:10 Nasal Enterovir/Rhinovir PCR NOT DETECTED 12/04/22 19:10 Nasal Influenza B PCR NOT DETECTED 12/04/22 19:10 Nasal Influenza A PCR NOT DETECTED 12/04/22 19:10 Nasal Parainfluen 1 PCR NOT DETECTED 12/04/22 19:10 Nasal Parainfluen 2 PCR NOT DETECTED 12/04/22 19:10 Nasal Parainfluen 3 PCR NOT DETECTED 12/04/22 19:10 Nasal Parainfluen 4 PCR NOT DETECTED 12/04/22 19:10 Nasal RSV (PCR) NOT DETECTED 12/04/22 19:10 Nasal B.pertussis DNA PCR NOT DETECTED 12/04/22 19:10 Nasal C.pneumoniae (PCR) NOT DETECTED 12/04/22 19:10 Simon Human Metapneumo PCR NOT DETECTED 12/04/22 19:10 Nasal M.pneumoniae (PCR) NOT DETECTED 12/04/22 19:10 Nasal SARS-CoV-2 (PCR) DETECTED A 12/04/22 19:10 - Procedures Procedures: Procedures EXCISION OF SIGMOID COLON, ENDO, DIAGN (04/01/16) HIP BEARING SURFACE, [id number] (03/08/14) PACKED CELL TRANSFUSION (03/08/14) TOTAL HIP REPLACEMENT (03/08/14) Sepsis Event Note (H) - Evaluation Current Stage of Sepsis: Ruled out
[2022-12-09] MEDS: SODIUM CHLORIDE FLUSH 0.9% 10 ML SYRINGE IVP SCH ×4 (00:15→23:51)
[2022-12-09] MEDS: DEXTROSE 5% 1,000 ML IV SCH (02:55)
[2022-12-09 05:35] LABS: BASOPHILS % (AUTO) 0.4 %; HCT - HEMATOCRIT 47.7 % (42.0-52.0); LYMPHOCYTES # (AUTO) 0.6 10^3/uL (1.5-3.5); LYMPHOCYTES % (AUTO) 8.4 %; MEAN CORPUSCULAR HEMOGLOBIN 31.3 pg (27.0-31.0); MEAN CORPUSCULAR HGB CONC 31.4 g/dL (32.0-36.0); MEAN CORPUSCULAR VOLUME 99.4 fL (80.0-94.0); MEAN PLATELET VOLUME 10.6 fL (7.4-11.4); MONOCYTES # (AUTO) 0.6 10^3/uL (0.0-1.0); MONOCYTES % (AUTO) 8.4 %; NEUTROPHILS # (AUTO) 5.8 10^3/uL (1.5-6.6); NEUTROPHILS % (AUTO) 81.7 %; NRBC ABSOLUTE COUNT (AUTO) 0.02 x10^3/uL; NUCLEATED RED BLOOD CELLS AUTO 0.3 /100WBC; PLT - PLATELET COUNT 158 10^3/uL (130-450); RED CELL DISTRIBUTION WIDTH 18.4 % (12.0-15.0); WHITE BLOOD COUNT 7.1 x10^3/uL (4.8-10.8)
[2022-12-09 05:43] LABS: CALCIUM 8.6 mg/dL (8.5-10.3); CREATININE 1.1 mg/dL (0.6-1.2); POTASSIUM 4.5 mmol/L (3.5-5.0)
[2022-12-09] MEDS: IPRATROPIUM/ALBUTEROL 3 ML NEB INH SCH (07:47)
[2022-12-09] MEDS: ENOXAPARIN 40 MG/0.4 ML SYRINGE SUBQ SCH (08:04)
[2022-12-09] MEDS: ASPIRIN 300 MG SUPP PR SCH (08:04)
[2022-12-09] MEDS: DEXAMETHASONE 4 MG/ML VIAL IVP SCH (08:04)
[2022-12-09] MEDS ORDERED: HALOPERIDOL 5 MG/ML VIAL IVP PRN (10:46)
[2022-12-09] MEDS: MORPHINE 2 MG/ML CARPUJECT IVP PRN ×2 (11:22→15:47)
--- NOTE | 2022-12-09 13:02 | PROVIDER PROGRESS NOTE ---
Assessment/Plan - Problem List (1) Acute respiratory failure with hypoxia Assessment/Plan: The cause appears to be COPD exacerbation, on top of underlying ILD, and his COVID-pneumonia. He needed 2 L nasal cannula at admission which is increased to 40% per humidified high flow cannula. Has been on IV Decadron daily and IV remdesivir daily Because of his wet sputum production, respiratory sample for Gram stain and culture was sent off and I started him on empiric iv antibiotics, using Zithromax. The sputm cx prelim is growing GPC, and empiric iv Zithromax was started Plan: Continue with O2 supplemental Target saturation will be 88% or above Cont treat the underlying problems, the COVID and the COPD Cont Zithro (2) COVID-19 Assessment/Plan: He has patchy lung changes which could be his ILD but he is positive for COVID (which likely led to the exacerbation of that lung disease) Plan: Continue with infectious isolation Continue with Decadron at 6 mg IV daily as per guidelines Cont daily iv Remdesivir; he qualified because of having hypoxia but not needing a ventilator and his diagnosis is very recent (3) Obtundation (R40.1) After having received morphine x1 for severe dyspnea 2 days ago, he has been obtunded. He does not respond to sternal rub or his name called. He mostly sleeps all day. He has spontaneous movement of arms and legs and is turning his head but eyes are closed. I decrease the dose of iv morphine prn dyspnea, and stretched out it's frequency since his respiratory status is not in as much distress the last 2 days. His diet, which had initially been orderd Regular and then changed to pured, has been cancelled. I stopped p.o. meds, changed the necessary meds to IV form, and pr ASA He is now considered to be in critical condition A Green catheter was ordered. The was in his room for 7 hours, held his hand, tried to get him to awaken and he did not. I updated the and spoke to her today (by phone after she left). This is a bad sign that he is not waking up. Plan: Today I updated the (by phone after she left) that he has had maximum medical management and there has been no improvement in neurologic status and now worsening in kidney function with his oliguria. The said that she would like the children to arrive tomorrow to see him then we will all have a meeting and very likely they will all want him to go to comfort care starting tomorrow (4) COPD exacerbation Assessment/Plan: Plan: Cont DuoNebs scheduled 4 times daily and every 4 hours as needed, if RT can admisnister Continue with IV steroids Cont supplemental O2, target saturations will be 88% and above (5) Interstitial lung disease Assessment/Plan: As per history. Plan: Continue with nebulized treatments, if possible from a RT standpoint, in a COVID pt, since he is too obtunded (and before that was too demented), to follow d irections to use an inhaler (6) Hypernatremia All labs were reviewed. His Sodium had risen to 147. This is from being on peripheral IV NS at 50 cc an hour and getting his various IV meds like remdesivir in normal saline, while taking no free water and no liquids orally for 48 hours. I stopped his IV NS and started IV D5W Plan: Cont D5W iv hydaration Follow BMP daily (7) PRESLEY (acute kidney injury) Assessment/Plan: All labs were reviewed. He presented with BUN/creatinine of 26/1.3. His baseline creatinine is 1.1 The creat was improving slt to 1.1 on iv fluids, but yesterday and today creat is 1.3 Plan: IV fluids to continue, now that he cannot eat, but changed NS to D5W. Avoid nephrotoxins We will follow BMP daily (8) Hyperkalemia Despite an improvement in his creatinine, yesterday 12/06/22, his potassium sabina to 5.7 and today is 5.1 Plan: Avoid potassium-containing products Continue with IV fluids Follow BMP daily (9) Dementia Assessment/Plan: As per history. Patient needed to be fed and needs complete halfway care. Speech Therapy evaluatied his swallowing 2 days ago, before he was obtunded and advised a pured diet with thin liquids. His diet has been cancelled. Plan: Continue supportive (halfway) care Will use only essential medications as they have to be an IV form while obtunded. Will ask ST to not plan to re-see him Yesterday I recommended to his we give him 72 hours to see if there is some improvement in mental status, and the agreed she will consider comfort care. Children to arrive tomorrow to be at bedside and we will have a conference - Current Meds Current Meds: Current Medications Generic Name Dose Route Start Last Admin Trade Name Goldie PRN Reason Stop Dose Admin Morphine Sulfate 2 mg 12/09/22 10:46 12/09/22 11:22 Morphine 2 Mg/Ml Carpuject IVP 2 mg Q2HR PRN Administration Dyspnea Scopolamine HBr 1 patch 12/05/22 17:10 12/08/22 18:35 Scopolamine Patch TOP 1 patch Q3D MARIBEL Administration Sodium Chloride 10 ml 12/04/22 23:06 12/09/22 11:22 Sodium Chloride Flush 0.9% 10 Ml Syringe IVP 10 ml PRN PRN Administration NEEDED PER PROVIDER ORDERS Sodium Chloride 10 ml 12/05/22 01:00 12/09/22 08:05 Sodium Chloride Flush 0.9% 10 Ml Syringe IVP 10 ml 0100,0900,1700 MARIBEL Administration - Lab Result Fish Bone Diagrams: 12/09/22 05:29 12/09/22 05:29 - Additional Planning My Orders: My Active Orders 12/09/22 10:46 Comfort Care [RC] QSHIFT Cooling Unit [RC] PRN Oral Care - Nursing [RC] BID Turn and Reposition [RC] PRN Vital Signs [RC] PRN Warming Unit [RC] PRN Carboxymethylcellulose 1% Opht [Refresh 1% Ophth Drops] 1 drops EACHEYE QID PRN Glycopyrrolate [Robinul] 0.2 mg SUBQ Q6H PRN Haloperidol Inj [Haldol Inj] 0.5 mg IVP Q2H PRN Morphine Inj (Carpuject) [Morphine (Carpuject)] 2 mg IVP Q2HR PRN 12/09/22 11:24 Telemetry-Discontinue [RC] .ONCE Subjective - Subjective Nursing Reports: Other (Intermittently withdraws to pain like getting blood draw or IV start, other times he has no response to pain like a sternal rub) Objective Vital Signs: Vital Signs - 24 hr 12/08/22 12/08/22 12/08/22 18:00 18:55 23:20 Temperature 36.8 C Heart Rate 55 L Heart Rate [ 52 L 64 Brachial] Respiratory 24 22 Rate Blood Pressure [Left Brachial artery] Blood Pressure 183/84 H [Left Radial artery] Blood Pressure [Right Brachial artery] O2 Saturation 94 97 If not protocol 2 2 : Oxygen Flow, liters/minute 12/09/22 12/09/22 12/09/22 00:24 05:13 07:48 Temperature 36.6 C 36.5 C Heart Rate 43 L Heart Rate [ 52 L 60 Brachial] Respiratory 30 H 30 H 20 Rate Blood Pressure 169/90 H [Left Brachial artery] Blood Pressure 170/91 H [Left Radial artery] Blood Pressure [Right Brachial artery] O2 Saturation 97 98 If not protocol 2 2 2 : Oxygen Flow, liters/minute 12/09/22 07:55 Temperature 36.4 C L Heart Rate Heart Rate [ 44 L Brachial] Respiratory 24 Rate Blood Pressure [Left Brachial artery] Blood Pressure [Left Radial artery] Blood Pressure 143/74 H [Right Brachial artery] O2 Saturation 97 If not protocol 2 : Oxygen Flow, liters/minute Oxygen O2 Source [Without Activity] Room air O2 Source Nasal cannula I&O (Last 24 Hrs): Intake and Output Totals x24h 12/07/22 12/08/22 12/09/22 23:59 23:59 23:59 Intake Total 9435.392 1309 947.5 Output Total 1350 1475 750 Balance -268.333 -375 197.5 General: Other (Comatose) HEENT: Mucous membr. moist/pink, Other (wearing O2 n.c.) Neuro: Other (Comatose) Respiratory: No respiratory distress (while on suppl O2) Abdomen: No tenderness Extremities: No edema - Results Results: Laboratory Results WBC 7.1 x10^3/uL (4.8-10.8) 12/09/22 05:29 RBC 4.80 10^6/uL (4.70-6.10) 12/09/22 05:29 Hgb 15.0 g/dL (14.0-18.0) 12/09/22 05:29 Hct 47.7 % (42.0-52.0) 12/09/22 05:29 MCV 99.4 fL (80.0-94.0) H 12/09/22 05:29 MCH 31.3 pg (27.0-31.0) H 12/09/22 05:29 MCHC 31.4 g/dL (32.0-36.0) L 12/09/22 05:29 RDW 18.4 % (12.0-15.0) H 12/09/22 05:29 Plt Count 158 10^3/uL (130-450) 12/09/22 05:29 MPV 10.6 fL (7.4-11.4) 12/09/22 05:29 Neut # (Auto) 5.8 10^3/uL (1.5-6.6) 12/09/22 05:29 Lymph # (Auto) 0.6 10^3/uL (1.5-3.5) L 12/09/22 05:29 [place] # (Auto) 0.6 10^3/uL (0.0-1.0) 12/09/22 05:29 Eos # (Auto) 0.0 10^3/uL (0.0-0.7) 12/09/22 05:29 Baso # (Auto) 0.0 10^3/uL (0.0-0.1) 12/09/22 05:29 Absolute Nucleated RBC 0.02 x10^3/uL 12/09/22 05:29 Total Counted 100 12/06/22 05:28 Band Neuts % (Manual) 58 % (0-10) H 12/06/22 05:28 Reactive Lymphs % (Man) 2 % 12/06/22 05:28 Abnorm Lymph % (Manual) 0 % 12/06/22 05:28 Metamyelocytes % 1 % (-0) H 12/06/22 05:28 Nucleated RBC % 0.3 /100WBC 12/09/22 05:29 Neutrophils # (Manual) 10.8 10^3/uL (1.5-6.6) H 12/06/22 05:28 Lymphocytes # (Manual) 0.2 10^3/uL (1.5-3.5) L 12/06/22 05:28 Monocytes # (Manual) 0.1 10^3/uL (0.0-1.0) 12/06/22 05:28 Eosinophils # (Manual) 0.0 10^3/uL (0-0.7) 12/06/22 05:28 Basophils # (Manual) 0.0 10^3/uL (0-0.1) 12/06/22 05:28 Nucleated RBCs 1 % 12/06/22 05:28 Differential Comment MANUAL DIFFERENTIAL 12/06/22 05:28 WBC Morphology 2+ VACUOLATION (NORMAL) 12/06/22 05:28 RBC Morph Micro Appear 1+ HYPOCHROMASIA (NORMAL) 12/06/22 05:28 Sodium 141 mmol/L (135-145) 12/09/22 05:29 Potassium 4.5 mmol/L (3.5-5.0) 12/09/22 05:29 Chloride 111 mmol/L (101-111) 12/09/22 05:29 Carbon Dioxide 25 mmol/L (21-32) 12/09/22 05:29 Anion Gap 5.0 (6-13) L 12/09/22 05:29 BUN 40 mg/dL (6-20) H 12/09/22 05:29 Creatinine 1.1 mg/dL (0.6-1.2) 12/09/22 05:29 Estimated GFR (MDRD) 65 (>89) L 12/09/22 05:29 Glucose 141 mg/dL (70-100) H 12/09/22 05:29 Calcium 8.6 mg/dL (8.5-10.3) 12/09/22 05:29 Phosphorus 3.8 mg/dL (2.5-4.6) 12/06/22 05:28 Magnesium 2.1 mg/dL (1.7-2.8) 12/06/22 18:10 Total Bilirubin 0.4 mg/dL (0.2-1.0) 12/04/22 19:53 AST 31 IU/L (10-42) 12/04/22 19:53 ALT 48 IU/L (10-60) 12/04/22 19:53 Alkaline Phosphatase 99 IU/L (42-121) 12/04/22 19:53 Total Protein 7.8 g/dL (6.7-8.2) 12/04/22 19:53 Albumin 4.0 g/dL (3.2-5.5) 12/04/22 19:53 Globulin 3.8 g/dL (2.1-4.2) 12/04/22 19:53 Albumin/Globulin Ratio 1.1 (1.0-2.2) 12/04/22 19:53 Lipase 30 U/L (22-51) 12/04/22 19:53 Nasal Adenovirus (PCR) NOT DETECTED 12/04/22 19:10 Nasal B. parapertussis DNA (PCR) NOT DETECTED 12/04/22 19:10 Nasal Coronavir 229E PCR NOT DETECTED 12/04/22 19:10 Nasal Coronavir HKU1 PCR NOT DETECTED 12/04/22 19:10 Nasal Coronavir NL63 PCR NOT DETECTED 12/04/22 19:10 Nasal Coronavir OC43 PCR NOT DETECTED 12/04/22 19:10 Nasal Enterovir/Rhinovir PCR NOT DETECTED 12/04/22 19:10 Nasal Influenza B PCR NOT DETECTED 12/04/22 19:10 Nasal Influenza A PCR NOT DETECTED 12/04/22 19:10 Nasal Parainfluen 1 PCR NOT DETECTED 12/04/22 19:10 Nasal Parainfluen 2 PCR NOT DETECTED 12/04/22 19:10 Nasal Parainfluen 3 PCR NOT DETECTED 12/04/22 19:10 Nasal Parainfluen 4 PCR NOT DETECTED 12/04/22 19:10 Nasal RSV (PCR) NOT DETECTED 12/04/22 19:10 Nasal B.pertussis DNA PCR NOT DETECTED 12/04/22 19:10 Nasal C.pneumoniae (PCR) NOT DETECTED 12/04/22 19:10 Simon Human Metapneumo PCR NOT DETECTED 12/04/22 19:10 Nasal M.pneumoniae (PCR) NOT DETECTED 12/04/22 19:10 Nasal SARS-CoV-2 (PCR) DETECTED A 12/04/22 19:10 - Procedures Procedures: Procedures EXCISION OF SIGMOID COLON, ENDO, DIAGN (12/16/15) HIP BEARING SURFACE, [id number] (03/08/14) PACKED CELL TRANSFUSION (03/08/14) TOTAL HIP REPLACEMENT (03/08/14) Sepsis Event Note (H) - Evaluation Current Stage of Sepsis: Ruled out
[2022-12-09] MEDS: CARBOXYMETHYLCELLULOSE OPHTH DROPS EACHEYE PRN (18:31)
[2022-12-09] MEDS: GLYCOPYRROLATE 1 MG/5 ML VIAL SUBQ PRN (18:31)
[2022-12-10] MEDS: SODIUM CHLORIDE FLUSH 0.9% 10 ML SYRINGE IVP SCH ×2 (07:53→15:12)
[2022-12-10 07:56] VITALS: BP 124/84
[2022-12-10] MEDS: GLYCOPYRROLATE 1 MG/5 ML VIAL SUBQ PRN ×3 (08:02→17:58)
[2022-12-10] MEDS: MORPHINE 2 MG/ML CARPUJECT IVP PRN ×5 (08:02→20:58)
--- NOTE | 2022-12-10 17:52 | PROVIDER PROGRESS NOTE ---
Assessment/Plan - Problem List (1) Acute respiratory failure with hypoxia Assessment/Plan: The cause appears to be COPD exacerbation, on top of underlying ILD, and his COVID-pneumonia. He needed 2 L nasal cannula at admission which is increased to 40% per humidified high flow cannula. Because of his wet sputum production, respiratory sample for Gram stain and culture was sent off and I started him on empiric iv antibiotics, using Zithromax. The sputm cx prelim is growing GPC We have been treating the underlying problems, the COVID and the COPD and empiric iv Zithromax Plan: Continue with O2 supplemental (2) Comfort measures only status On 12/08 I spoke to the that he has made no improvement, in fact has had worsening in his neurologic status and oliguria On 12/09 the daughter and son arrived and I spoke to the , 2 children and a [id number], about his condition. They all agreed that they want to stop his suffering, he appears to be mouthing the words "help". But is mostly asleep or comatose Plan: We stopped all medications for hydration and infection. Stopped lab draws and telemetry and vital signs prn. I ordered a Comfort Care package I suspected the patient will decline rapidly, I told the family in the next 24 to 48 hours he may pass away. They would like to take him home to . I informed vp digital marketing social media and crm of this today. We will ask for Hospice to step in for end-of-life management. (3) COVID-19 Assessment/Plan: He has patchy lung changes which could be his ILD but he is positive for COVID (which likely led to the exacerbation of that lung disease). Has been getting IV Decadron daily and IV remdesivir per protocol Plan: Continue with infectious isolation (4) Dementia Assessment/Plan: As per history. Patient needed to be fed and needs complete prison care. Speech Therapy evaluatied his swallowing several days ago, before he was obtunded and advised a pured diet with thin liquids. His diet has been cancelled. (5) Obtundation (R40.1) After having received morphine x1 for severe dyspnea 2 days ago, he has been obtunded. He does not respond to sternal rub or his name called. He mostly sleeps all day. He had spontaneous movement of arms and legs until yesterday, now eyes are closed and he withdraws to pain intermittently. Comfort iv Morphine and O2 suppl and a Green catheter are ordered. His diet has been cancelled. I updated the and spoke to her today at bedside (6) Oliguria As per I's and O's measured with a Green in place. (7) COPD exacerbation Assessment/Plan: I had ordered DuoNebs scheduled 4 times daily and every 4 hours as needed, if RT can administer, since with his obtundation, he cannot use an inhaler He had been on IV steroids Plan: Cont supplemental O2, (8) Interstitial lung disease Assessment/Plan: As per history. He had been getting nebulized treatments, since he was too obtunded and demented, to follow directions to use an inhaler (9) Hypernatremia All labs were reviewed. His Sodium has been 145-147. This is from being on peripheral IV NS at 50 cc an hour and getting his various IV meds like remdesivir in normal saline, while taking no free water and no liquids orally for 72 hours. On 12/07, I stopped his IV NS, started him on IV D5W Now all hydration has been stopped (10) PRESLEY (acute kidney injury) Assessment/Plan: All labs were reviewed. He presented with BUN/creatinine of 26/1.3. His baseline creatinine is 1.1 (11) Hyperkalemia Potassium sabina to 5.7>> 5.1 >> was 4.6, after iv D5W started. No further labs to be drawn - Current Meds Current Meds: Current Medications Generic Name Dose Route Start Last Admin Trade Name Freq PRN Reason Stop Dose Admin Carboxymethylcellulose 1 drops 12/09/22 10:46 12/09/22 18:31 Carboxymethylcellulose Ophth Drops EACHEYE 1 unit QID PRN Administration Dry Eye Glycopyrrolate 0.2 mg 12/09/22 10:46 12/10/22 08:02 Glycopyrrolate 1 Mg/5 Ml Vial SUBQ 0.2 mg Q6H PRN Administration Excessive secretions Morphine Sulfate 2 mg 12/09/22 10:46 12/10/22 15:11 Morphine 2 Mg/Ml Carpuject IVP 2 mg Q2HR PRN Administration Dyspnea Scopolamine HBr 1 patch 12/05/22 17:10 12/08/22 18:35 Scopolamine Patch TOP 1 patch Q3D MARIBEL Administration Sodium Chloride 10 ml 12/04/22 23:06 12/09/22 11:22 Sodium Chloride Flush 0.9% 10 Ml Syringe IVP 10 ml PRN PRN Administration NEEDED PER PROVIDER ORDERS Sodium Chloride 10 ml 12/05/22 01:00 12/10/22 15:12 Sodium Chloride Flush 0.9% 10 Ml Syringe IVP 10 ml 0100,0900,1700 MARIBEL Administration - Lab Result Fish Bone Diagrams: 12/09/22 05:29 12/09/22 05:29 - Additional Planning My Orders: My Active Orders 12/10/22 Hospice Referral for Post-Discharge Services [CONS] Routine Subjective - Subjective Nursing Reports: Other (Attended, sleeping with his mouth open and head back, response to pain, only intermittently) Objective Vital Signs: Vital Signs - 24 hr 12/09/22 12/10/22 12/10/22 19:10 07:55 09:38 Temperature 36.5 C Heart Rate [ 51 L Brachial] Respiratory 26 H Rate Blood Pressure 124/84 H [Right Brachial artery] O2 Saturation 93 If not protocol 2 2 2 : Oxygen Flow, liters/minute 12/10/22 14:32 Temperature 37.5 C Heart Rate [ Brachial] Respiratory Rate Blood Pressure [Right Brachial artery] O2 Saturation If not protocol : Oxygen Flow, liters/minute Oxygen O2 Source [Without Activity] Room air O2 Source Nasal cannula I&O (Last 24 Hrs): Intake and Output Totals x24h 12/08/22 12/09/22 12/10/22 23:59 23:59 23:59 Intake Total 1100 1576.5 Output Total 1475 1475 800 Balance -375 101.5 -800 General: Other (Cachectic, obtunded, sleeping with his head back and mouth open, has upper airway gurgling sounds audible) HEENT: Other (Lips and oral mucosa are very dry) Neuro: Other (Obtunded, no spontaneous movement, responds to pain but only intermittent) Cardiovascular: Regular rate Respiratory: Rhonchi Abdomen: Other (Not distended) Extremities: No clubbing, Other (Cachectic with skin tenting) - Results Results: Laboratory Results WBC 7.1 x10^3/uL (4.8-10.8) 12/09/22 05:29 RBC 4.80 10^6/uL (4.70-6.10) 12/09/22 05:29 Hgb 15.0 g/dL (14.0-18.0) 12/09/22 05:29 Hct 47.7 % (42.0-52.0) 12/09/22 05:29 MCV 99.4 fL (80.0-94.0) H 12/09/22 05:29 MCH 31.3 pg (27.0-31.0) H 12/09/22 05:29 MCHC 31.4 g/dL (32.0-36.0) L 12/09/22 05:29 RDW 18.4 % (12.0-15.0) H 12/09/22 05:29 Plt Count 158 10^3/uL (130-450) 12/09/22 05:29 MPV 10.6 fL (7.4-11.4) 12/09/22 05:29 Neut # (Auto) 5.8 10^3/uL (1.5-6.6) 12/09/22 05:29 Lymph # (Auto) 0.6 10^3/uL (1.5-3.5) L 12/09/22 05:29 [place] # (Auto) 0.6 10^3/uL (0.0-1.0) 12/09/22 05:29 Eos # (Auto) 0.0 10^3/uL (0.0-0.7) 12/09/22 05:29 Baso # (Auto) 0.0 10^3/uL (0.0-0.1) 12/09/22 05:29 Absolute Nucleated RBC 0.02 x10^3/uL 12/09/22 05:29 Total Counted 100 12/06/22 05:28 Band Neuts % (Manual) 58 % (0-10) H 12/06/22 05:28 Reactive Lymphs % (Man) 2 % 12/06/22 05:28 Abnorm Lymph % (Manual) 0 % 12/06/22 05:28 Metamyelocytes % 1 % (-0) H 12/06/22 05:28 Nucleated RBC % 0.3 /100WBC 12/09/22 05:29 Neutrophils # (Manual) 10.8 10^3/uL (1.5-6.6) H 12/06/22 05:28 Lymphocytes # (Manual) 0.2 10^3/uL (1.5-3.5) L 12/06/22 05:28 Monocytes # (Manual) 0.1 10^3/uL (0.0-1.0) 12/06/22 05:28 Eosinophils # (Manual) 0.0 10^3/uL (0-0.7) 12/06/22 05:28 Basophils # (Manual) 0.0 10^3/uL (0-0.1) 12/06/22 05:28 Nucleated RBCs 1 % 12/06/22 05:28 Differential Comment MANUAL DIFFERENTIAL 12/06/22 05:28 WBC Morphology 2+ VACUOLATION (NORMAL) 12/06/22 05:28 RBC Morph Micro Appear 1+ HYPOCHROMASIA (NORMAL) 12/06/22 05:28 Sodium 141 mmol/L (135-145) 12/09/22 05:29 Potassium 4.5 mmol/L (3.5-5.0) 12/09/22 05:29 Chloride 111 mmol/L (101-111) 12/09/22 05:29 Carbon Dioxide 25 mmol/L (21-32) 12/09/22 05:29 Anion Gap 5.0 (6-13) L 12/09/22 05:29 BUN 40 mg/dL (6-20) H 12/09/22 05:29 Creatinine 1.1 mg/dL (0.6-1.2) 12/09/22 05:29 Estimated GFR (MDRD) 65 (>89) L 12/09/22 05:29 Glucose 141 mg/dL (70-100) H 12/09/22 05:29 Calcium 8.6 mg/dL (8.5-10.3) 12/09/22 05:29 Phosphorus 3.8 mg/dL (2.5-4.6) 12/06/22 05:28 Magnesium 2.1 mg/dL (1.7-2.8) 12/06/22 18:10 Total Bilirubin 0.4 mg/dL (0.2-1.0) 12/04/22 19:53 AST 31 IU/L (10-42) 12/04/22 19:53 ALT 48 IU/L (10-60) 12/04/22 19:53 Alkaline Phosphatase 99 IU/L (42-121) 12/04/22 19:53 Total Protein 7.8 g/dL (6.7-8.2) 12/04/22 19:53 Albumin 4.0 g/dL (3.2-5.5) 12/04/22 19:53 Globulin 3.8 g/dL (2.1-4.2) 12/04/22 19:53 Albumin/Globulin Ratio 1.1 (1.0-2.2) 12/04/22 19:53 Lipase 30 U/L (22-51) 12/04/22 19:53 Nasal Adenovirus (PCR) NOT DETECTED 12/04/22 19:10 Nasal B. parapertussis DNA (PCR) NOT DETECTED 12/04/22 19:10 Nasal Coronavir 229E PCR NOT DETECTED 12/04/22 19:10 Nasal Coronavir HKU1 PCR NOT DETECTED 12/04/22 19:10 Nasal Coronavir NL63 PCR NOT DETECTED 12/04/22 19:10 Nasal Coronavir OC43 PCR NOT DETECTED 12/04/22 19:10 Nasal Enterovir/Rhinovir PCR NOT DETECTED 12/04/22 19:10 Nasal Influenza B PCR NOT DETECTED 12/04/22 19:10 Nasal Influenza A PCR NOT DETECTED 12/04/22 19:10 Nasal Parainfluen 1 PCR NOT DETECTED 12/04/22 19:10 Nasal Parainfluen 2 PCR NOT DETECTED 12/04/22 19:10 Nasal Parainfluen 3 PCR NOT DETECTED 12/04/22 19:10 Nasal Parainfluen 4 PCR NOT DETECTED 12/04/22 19:10 Nasal RSV (PCR) NOT DETECTED 12/04/22 19:10 Nasal B.pertussis DNA PCR NOT DETECTED 12/04/22 19:10 Nasal C.pneumoniae (PCR) NOT DETECTED 12/04/22 19:10 Simon Human Metapneumo PCR NOT DETECTED 12/04/22 19:10 Nasal M.pneumoniae (PCR) NOT DETECTED 12/04/22 19:10 Nasal SARS-CoV-2 (PCR) DETECTED A 12/04/22 19:10 - Procedures Procedures: Procedures EXCISION OF SIGMOID COLON, ENDO, DIAGN (12/16/15) HIP BEARING SURFACE, [id number] (03/08/14) PACKED CELL TRANSFUSION (03/08/14) TOTAL HIP REPLACEMENT (03/08/14) Sepsis Event Note (H) - Evaluation Current Stage of Sepsis: Ruled out
[2022-12-10] MEDS: CARBOXYMETHYLCELLULOSE OPHTH DROPS EACHEYE PRN (20:58)
--- NOTE | 2022-12-11 07:35 | DISCHARGE SUMMARY ---
"Discharge Summary Admit Date: 12/04/22 Discharge Date: 12/11/22 Discharging Provider: Keila Duque MD Primary Care Provider: Abhilash Smith MD Code Status: Do Not Attempt Resuscitation Discharge Disposition: 20 - DIAGNOSES Discharge Diagnoses with Status of Each Condition: 1. Acute respiratory failure with hypoxia 2. COPD with exacerbation 3. Interstitial lung disease 4. COVID-pneumonia 5. Dementia without behavioral disturbance 6. Obtundation 7. Oliguria 8. Hypernatremia 9. Acute kidney injury 10. Hyperkalemia - HPI History of Present Illness: Patient is a 72-year-old male, history of dementia who lives at a memory care facility. He was found with decreased responsiveness and increased work of breathing today. He is unable to give any history. EMS states that he has a history of COPD. They placed him on BiPAP and brought him to the emergency department. They state no other treatment given on route. His paperwork states that he has a history of interstitial lung disease and is status post a stem cell transplant. Unclear when this occurred. He is DNR with limited interventions.Patient looks comfortable in Er hx obtained from ER MD, plan to admit for observation for supportive care - Past Medical History Cardiovascular: reports: None, Other Respiratory: reports: Asthma, COPD, Other Neuro: reports: Dementia, TIA Endocrine/Autoimmune: reports: None GI: reports: GERD : reports: Incontinence, Frequency HEENT: reports: None Psych: reports: None Musculoskeletal: reports: Osteoporosis, Other Derm: reports: Other MRSA Hx?: No - Past Surgical History Ortho: reports: Hip replacement, Knee replacement - CONSULTS | PROCEDURES Procedures: Chest x-ray has no acute cardiopulmonary abnormality Respiratory culture grew yeast - HOSPITAL COURSE Hospital Course: And spite of support with Decadron, remdesivir, IV fluids and oxygen he became more more obtunded. Was not waking up. By December 09 the family discussed his condition and asked us to please transition him to comfort measures only. On December 10 he asked us not to send him back to the memory care unit. They really wanted to take him home for him to at home. Social work was working with hosp[facility] of [facility] to go to equipment to their house so that the patient could at home. Unfortunately he in the hospital at 9:02 PM on December 10. - ALLERGIES Allergies/Adverse Reactions: Allergies Allergy/AdvReac Type Severity Reaction Status Date / Time max june Allergy Respiratory Verified 12/04/22 19:12 Penicillins Allergy Rash Verified 12/04/22 19:12 sesame seed Allergy Respiratory Verified 12/04/22 19:12 walnut Allergy Respiratory Verified 12/04/22 19:12 - MEDICATIONS Home Medications: Ambulatory Orders Medication Instructions Recorded Confirmed traZODone [Desyrel] 50 mg PO HS #30 tablet 03/21/22 12/05/22 Acetaminophen [Tylenol] 650 mg PO Q6H PRN 12/05/22 12/05/22 Albuterol Sulf [Ventolin Hfa 2 puffs PO Q4H PRN 12/05/22 12/05/22 Inhaler] Loperamide [Imodium] 2 mg PO ONCE PRN 12/05/22 12/05/22 Mag Hydrox/Aluminum Hyd/Simeth 30 ml PO Q4H PRN 12/05/22 12/05/22 [Antacid Anti-Gas Max Str Liq] Magnesium Hydroxide [Milk of 2,400 mg PO ONCE PRN 12/05/22 12/05/22 Magnesia] Melatonin/Pyridoxine [Melatonin 5 1 each PO HS 12/05/22 12/05/22 mg Tablet] Memantine HCl [Namenda] 10 mg PO BID 12/05/22 12/05/22 Nut.tx.impaired Digestive Fxn 237 ml PO BID PRN 12/05/22 12/05/22 [Ensure Clear Therapeutic] OLANZapine [Olanzapine] 7.5 mg PO DAILY 12/05/22 12/05/22 - LABS Result Diagrams: 12/09/22 05:29 12/09/22 05:29 - SEPSIS Current Stage of Sepsis: Ruled out"
== END 2022-12-10 21:02 | disposition expired | DRG 177 ==
LOC: EDUNIT# → ED 19:03 → MS2 23:06 → OBSVTOIN 12-05 03:22
PROVIDERS: ADMIT Internal Medicine; ATTEND Specialist
PROC: XW033E5 Introduction of Remdesivir Anti-infective into Peripheral Vein, Percutaneous Approach, New Technology Group 5 (ICD-10-PCS; principal; 2022-12-05)
PROC: 3E0333Z Introduction of Anti-inflammatory into Peripheral Vein, Percutaneous Approach (ICD-10-PCS; 2022-12-05)
DX: U07.1 COVID-19 (principal); J12.82 Pneumonia due to coronavirus disease 2019; J84.9 Interstitial pulmonary disease, unspecified; J96.01 Acute respiratory failure with hypoxia; J44.0 Chronic obstructive pulmonary disease with (acute) lower respiratory infection; J44.1 Chronic obstructive pulmonary disease with (acute) exacerbation; N17.9 Acute kidney failure, unspecified; E87.0 Hyperosmolality and hypernatremia; F03.90 Unspecified dementia, unspecified severity, without behavioral disturbance, psychotic disturbance, mood disturbance, and anxiety; R34 Anuria and oliguria; E87.5 Hyperkalemia; Z86.73 Personal history of transient ischemic attack (TIA), and cerebral infarction without residual deficits; Z51.5 Encounter for palliative care; R32 Unspecified urinary incontinence; R35.0 Frequency of micturition; K21.9 Gastro-esophageal reflux disease without esophagitis; Z66 Do not resuscitate; R40.1 Stupor
CPT/HCPCS: 36415; 71045; 80048; 80053; 83690; 83735; 84100; 84132; 85025; 87070; 87205; 87633; 92610; 93005; 94640; 94660; 96374; 99284; 99285; A9270; G0378; J1650; J3490